=== PATIENT | male | born 1955 | race Caucasian/White ===

== ENCOUNTER 2025-05-08 20:44 | Inpatient (IN) | payer MEDICARE, OTHER, SELFPAY ==
[2025-05-08] VITALS (8 sets, daily range): BP systolic 118–137; BP diastolic 69–86; BMI 28.7
--- NOTE | 2025-05-08 15:54 | ED.GENMED ---
History of Present Illness
<Cristina Becerril, BUSINESS APPLICATIONS ANALYST - Last Filed: 05/10/25 14:02>
General
Chief Complaint: Fever
Source: patient
Exam Limitations: none
Time Seen by Provider: 05/08/25 15:29
Nursing documentation reviewed up to this point in time: agreed with
History of Present Illness
History of Present Illness:
69-year-old male with history of asthma present for workup from Heme/Onc Dr. Moses's office. He states that for about two weeks, he has been weak, legs feel heavy, 'intense deep aching pains' in both legs and left arm, decreased appetite.
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 Was given 2 units PRBC's, bone marrow biopsy and sent home. Three days
ago went back to [place] with severe weakness and given another 2 units PRBCs and was to follow up with Dr. Moses today, which he did and due to symptoms, sent here for workup.
Pt denies CP, SOB, abd pain, n/v/d. Appetite has been poor, feels constipated. Small BM yesterday.
Past History
<Cristina Becerril, BUSINESS APPLICATIONS ANALYST - Last Filed: 05/10/25 14:02>
Past History
ED Past Medical History: Asthma
ED Past Surgical History: Other (Mohs procedure)
Review of Systems
<Cristina Becerril, BUSINESS APPLICATIONS ANALYST - Last Filed: 05/10/25 14:02>
Review of Systems
Allergies reviewed?: Yes
All Other Systems: ROS reviewed and negative except as documented in HPI and ROS
Constitutional: Reports fatigue; Denies fever
EENT: Denies sore throat
Respiratory: Denies trouble breathing
Cardiac: Denies chest pain or syncope
ABD/GI: Reports constipated and anorexia; Denies abdominal pain, nausea, vomiting or diarrhea
: Denies dysuria or difficulty voiding
Musculoskeletal: Reports other (Deep aching pains in his legs and left arm)
Skin: Reports other (Mild tenderness, mild swelling, mild erythema anterior left forearm)
Neurological: Denies dizzy or numbness
Hematologic/Lymphatic: Denies bleeding
Phy Exam
<Cristina Becerril, BUSINESS APPLICATIONS ANALYST - Last Filed: 05/10/25 14:02>
Physical Exam
Physical Exam:
GENERAL: No acute distress. A&Ox3.
CONSTITUTIONAL: Afebrile.
EYES: clear, conjunctivae normal
ENMT: moist mucus membranes, Pharynx nl
RESPIRATORY: Regular respirations, nonlabored, lungs clear.
CARDIOVASCULAR: Regular rate and rhythm, no murmurs, no rubs.
GI: Soft, nontender, normal BS
MUSCULOSKELETAL: Moves with ease. Well perfused.
SKIN: Warm, dry, pink. Local area of mild erythema, tenderness and mild swelling left anterior forearm
PSYCH: Normal mood and affect. Well kept, interactive and appropriate
NEUROLOGIC: Awake, alert and oriented. No focal neurological deficits
Course
<Cristina Becerril, BUSINESS APPLICATIONS ANALYST - Last Filed: 05/10/25 14:02>
Orders/Labs/Results
Orders:
Orders
05/08/25 Dinner
Regular
At Your Request: Full Participation
05/08/25 15:02
Electrocardiogram (*1) Urgent
Reason for Study: Other
Other Reason for Exam: fever
EKG- Treatment ONCE
05/08/25 16:23
CMP [Comprehensive Metabolic Panel] Urgent
Complete Blood Count/With Diff Urgent
Manual Differential Urgent
05/08/25 16:24
Type And Crossmatch [Type+Screen] Urgent
Blood Culture Q30M
LAN Source: Blood/Venous
Specimen Description:
05/08/25 16:29
Urinalysis Reflex To Culture Urgent
Date Specimen was Collected: 05/08/25
Time Specimen was Collected: 16:28
Urine Microscopic Reflex Cult Urgent
Urine Culture Urgent
LAN Source: U
Specimen Description:
Date Specimen was Collected: 05/08/25
Time Specimen was Collected: 16:28
05/08/25 16:47
CR Chest - 2 Views Urgent
Comment:
Reason For Exam: fever, recent dx leukemia
05/08/25 16:50
Cefepime HCl [Maxipime] 1,000 mg IV NOW STA
05/08/25 16:59
Blood Culture Q30M
LAN Source: Blood/Venous
Specimen Description:
05/08/25 17:12
ONCOLOGY CONSULT Urgent
Consulting Provider: Katy Moses
Was physician already notified: Yes
Reason for consult: Leukemia
05/08/25 18:00
Acetaminophen [Tylenol] 1,000 mg .ROUTE .STK-MED ONE
05/08/25 18:09
Acetaminophen [Tylenol] 1,000 mg PO NOW STA
05/08/25 18:11
Vancomycin [Vancocin] 2,000 mg 0.9% Sodium Chloride 500 ml [Nss] 500 ml IV NOW
05/08/25 18:20
Legs, Bilateral US [US Periph Venous LOWER Ext Alo] Urgent
Comment: known malignancy
Reason For Exam: Lower extremity swelling
05/08/25 19:26
Admit/Transfer Patient As Directed
Co-Sign Provider:
Level of Care: Inpatient admission
Assign to:: Medical/Surgical
Physician / Group: Kate
Diagnosis: Fever
Reason for Hospitalization: fever, leukemia
Expected length of stay greater than two midnights?: Yes
ELOS- Estimated Length of Stay in days: 2
I certify the patient meets the requirements for IP care: Yes
PRN Pain Medication Management As Directed
May give lesser potent ordered pain med per pt: Yes
preference::
Protocol:: Medication orders for pain may be administered in a
manner that supports deferring to patient preference
when the pt is:
- Requesting an ordered lesser potent pain medication.
Least to most potent pain medications are defined
as: acetaminophen < NSAID < tramadol < opioids
(morphine, oxycodone, hydromorphone).
- Requesting a lesser dose of the same medication IF
ORDERED.
- Requesting a less intrusive route of administration
if both routes are prescribed by the provider (PO <
IV).
05/08/25 19:27
Code Status As Directed
Resuscitation Status: Full Code
05/08/25 19:54
COVID-19 Antigen Stat
Source: Nasal Swab
Influenza A+B Rapid Molecular Stat
LAN Source: Nasal Swab
Specimen Description:
05/08/25 21:28
Acetaminophen [Tylenol] 650 mg PO Q4HPRN PRN
Albuterol [ProAIR HFA INHALER] 2 puff INH R Q6HPRN PRN sob
Bisacodyl [Dulcolax] 10 mg RECTAL [id number] PRN
Docusate W/Senna [Senokot-S] 1 tablet PO BIDPRN PRN
Heparin 5,000 units SC Q12
Ondansetron Injectable [Zofran] 4 mg IV Q6HPRN PRN
Polyethylene Glycol Powder [Miralax] 17 grams PO DAILYPRN PRN
VANCOMYCIN Pharmacy to Dose [VANCOCIN Pharmacy to Dose] 1 each Pharmacy To Prepare [Call Pharmacy To Prepare] 0 ml IV PER PROTOCOL
05/08/25 21:28
Activity As Directed
Activity Level: With Assistance
Vital Signs As Directed
Frequency: Per unit guidelines
Pulse Ox/spot Check [RESP] Routine
Quantity: 1
DX Deep Vein Thrombosis Video Routine
05/09/25 05:37
Basic Metabolic Panel IN AM
Magnesium IN AM
05/09/25 08:00
Multivitamin [Theragran] 1 tablet PO DAILY
Abnormal Lab Results
05/08/25 05/08/25
16:23 16:29
WBC 2.9 L 10^3/uL
(4.8-10.8)
RBC 2.45 L 10^6/uL
(4.70-6.10)
Hgb 8.2 L g/dL
(13.0-18.0)
Hct 23.7 L %
(39.0-52.0)
MCV 96.7 H fL
(80.0-94.0)
MCH 33.5 H pg
(27.0-31.0)
RDW 15.3 H %
(11.5-14.5)
Plt Count 50 L 10^3/uL
(130-400)
Abs Neuts (Manual) 0.4 L* 10^3/uL
(1.4-6.5)
Segmented Neutrophils 9 L %
(42-75)
Band Neutrophils 5 H %
(0-3)
Lymphocytes (Manual) 53 H %
(20-51)
Monocytes (Manual) 15 H %
(2-9)
Blast Cells 7 H* %
(-)
Glucose 103 H mg/dl
(70-99)
Urine Ketones 1+ A
(Negative)
Urine Bilirubin 1+ A
(Negative)
Urine Urobilinogen 2+ A
(Neg - 1+)
Leukocyte Esterase Rfl 1+ A
(Negative)
Urine RBC 3-6 A /HPF
(0-2)
Urine Bacteria (Reflex) Few A
(Negative)
Urine Albumin (Reflex) 2+ A
(Neg - Trace)
05/08/25 16:23
05/08/25 16:23
Vital Signs
Initial and Last Documented VS:
Initial Vital Signs
Temp Pulse Resp BP Pulse Ox
99.0 F 93 18 123/82 96
05/08/25 14:56 05/08/25 14:56 05/08/25 14:56 05/08/25 14:56 05/08/25 14:56
Last Documented Vital Signs
Temp Pulse Resp BP Pulse Ox
100.4 F H 82 18 125/61 95
05/10/25 07:00 05/10/25 07:00 05/10/25 07:00 05/10/25 07:00 05/10/25 07:00
Echocardiography Tech consulted with Physician
Echocardiography Tech consulted with physician?: Yes
Name of Physician Consulted: Jj
<Branden Welch MD - Last Filed: 05/08/25 18:35>
Orders/Labs/Results
Orders:
Orders
05/08/25 Dinner
Regular
At Your Request: Full Participation
05/08/25 15:02
Electrocardiogram (*1) Urgent
Reason for Study: Other
Other Reason for Exam: fever
EKG- Treatment ONCE
05/08/25 16:23
CMP [Comprehensive Metabolic Panel] Urgent
Complete Blood Count/With Diff Urgent
Manual Differential Urgent
05/08/25 16:24
Type And Crossmatch [Type+Screen] Urgent
Blood Culture Q30M
LAN Source: Blood/Venous
Specimen Description:
05/08/25 16:29
Urinalysis Reflex To Culture Urgent
Date Specimen was Collected: 05/08/25
Time Specimen was Collected: 16:28
Urine Microscopic Reflex Cult Urgent
Urine Culture Urgent
LAN Source: U
Specimen Description:
Date Specimen was Collected: 05/08/25
Time Specimen was Collected: 16:28
05/08/25 16:47
CR Chest - 2 Views Urgent
Comment:
Reason For Exam: fever, recent dx leukemia
05/08/25 16:50
Cefepime HCl [Maxipime] 1,000 mg IV NOW STA
05/08/25 16:59
Blood Culture Q30M
LAN Source: Blood/Venous
Specimen Description:
05/08/25 17:12
ONCOLOGY CONSULT Urgent
Consulting Provider: Katy Moses
Was physician already notified: Yes
Reason for consult: Leukemia
05/08/25 18:00
Acetaminophen [Tylenol] 1,000 mg .ROUTE .STK-MED ONE
05/08/25 18:09
Acetaminophen [Tylenol] 1,000 mg PO NOW STA
05/08/25 18:11
Vancomycin [Vancocin] 2,000 mg 0.9% Sodium Chloride 500 ml [Nss] 500 ml IV NOW
05/08/25 18:20
Legs, Bilateral US [US Periph Venous LOWER Ext Alo] Urgent
Comment: known malignancy
Reason For Exam: Lower extremity swelling
05/08/25 19:26
Admit/Transfer Patient As Directed
Co-Sign Provider:
Level of Care: Inpatient admission
Assign to:: Medical/Surgical
Physician / Group: Kate
Diagnosis: Fever
Reason for Hospitalization: fever, leukemia
Expected length of stay greater than two midnights?: Yes
ELOS- Estimated Length of Stay in days: 2
I certify the patient meets the requirements for IP care: Yes
PRN Pain Medication Management As Directed
May give lesser potent ordered pain med per pt: Yes
preference::
Protocol:: Medication orders for pain may be administered in a
manner that supports deferring to patient preference
when the pt is:
- Requesting an ordered lesser potent pain medication.
Least to most potent pain medications are defined
as: acetaminophen < NSAID < tramadol < opioids
(morphine, oxycodone, hydromorphone).
- Requesting a lesser dose of the same medication IF
ORDERED.
- Requesting a less intrusive route of administration
if both routes are prescribed by the provider (PO <
IV).
05/08/25 19:27
Code Status As Directed
Resuscitation Status: Full Code
05/08/25 19:54
COVID-19 Antigen Stat
Source: Nasal Swab
Influenza A+B Rapid Molecular Stat
LAN Source: Nasal Swab
Specimen Description:
05/08/25 21:28
Acetaminophen [Tylenol] 650 mg PO Q4HPRN PRN
Albuterol [ProAIR HFA INHALER] 2 puff INH R Q6HPRN PRN sob
Bisacodyl [Dulcolax] 10 mg RECTAL [id number] PRN
Docusate W/Senna [Senokot-S] 1 tablet PO BIDPRN PRN
Heparin 5,000 units SC Q12
Ondansetron Injectable [Zofran] 4 mg IV Q6HPRN PRN
Polyethylene Glycol Powder [Miralax] 17 grams PO DAILYPRN PRN
VANCOMYCIN Pharmacy to Dose [VANCOCIN Pharmacy to Dose] 1 each Pharmacy To Prepare [Call Pharmacy To Prepare] 0 ml IV PER PROTOCOL
05/08/25 21:28
Activity As Directed
Activity Level: With Assistance
Vital Signs As Directed
Frequency: Per unit guidelines
Pulse Ox/spot Check [RESP] Routine
Quantity: 1
DX Deep Vein Thrombosis Video Routine
05/09/25 05:37
Basic Metabolic Panel IN AM
Magnesium IN AM
05/09/25 08:00
Multivitamin [Theragran] 1 tablet PO DAILY
Abnormal Lab Results
05/08/25 05/08/25
16:23 16:29
WBC 2.9 L 10^3/uL
(4.8-10.8)
RBC 2.45 L 10^6/uL
(4.70-6.10)
Hgb 8.2 L g/dL
(13.0-18.0)
Hct 23.7 L %
(39.0-52.0)
MCV 96.7 H fL
(80.0-94.0)
MCH 33.5 H pg
(27.0-31.0)
RDW 15.3 H %
(11.5-14.5)
Plt Count 50 L 10^3/uL
(130-400)
Abs Neuts (Manual) 0.4 L* 10^3/uL
(1.4-6.5)
Segmented Neutrophils 9 L %
(42-75)
Band Neutrophils 5 H %
(0-3)
Lymphocytes (Manual) 53 H %
(20-51)
Monocytes (Manual) 15 H %
(2-9)
Blast Cells 7 H* %
(-)
Glucose 103 H mg/dl
(70-99)
Urine Ketones 1+ A
(Negative)
Urine Bilirubin 1+ A
(Negative)
Urine Urobilinogen 2+ A
(Neg - 1+)
Leukocyte Esterase Rfl 1+ A
(Negative)
Urine RBC 3-6 A /HPF
(0-2)
Urine Bacteria (Reflex) Few A
(Negative)
Urine Albumin (Reflex) 2+ A
(Neg - Trace)
05/08/25 16:23
05/08/25 16:23
Vital Signs
Initial and Last Documented VS:
Initial Vital Signs
Temp Pulse Resp BP Pulse Ox
99.0 F 93 18 123/82 96
05/08/25 14:56 05/08/25 14:56 05/08/25 14:56 05/08/25 14:56 05/08/25 14:56
Last Documented Vital Signs
Temp Pulse Resp BP Pulse Ox
100.4 F H 82 18 125/61 95
05/10/25 07:00 05/10/25 07:00 05/10/25 07:00 05/10/25 07:00 05/10/25 07:00
<Lilian Tsai PA-C - Last Filed: 05/09/25 01:18>
Orders/Labs/Results
Orders:
Orders
05/08/25 Dinner
Regular
At Your Request: Full Participation
05/08/25 15:02
Electrocardiogram (*1) Urgent
Reason for Study: Other
Other Reason for Exam: fever
EKG- Treatment ONCE
05/08/25 16:23
CMP [Comprehensive Metabolic Panel] Urgent
Complete Blood Count/With Diff Urgent
Manual Differential Urgent
05/08/25 16:24
Type And Crossmatch [Type+Screen] Urgent
Blood Culture Q30M
LAN Source: Blood/Venous
Specimen Description:
05/08/25 16:29
Urinalysis Reflex To Culture Urgent
Date Specimen was Collected: 05/08/25
Time Specimen was Collected: 16:28
Urine Microscopic Reflex Cult Urgent
Urine Culture Urgent
LAN Source: U
Specimen Description:
Date Specimen was Collected: 05/08/25
Time Specimen was Collected: 16:28
05/08/25 16:47
CR Chest - 2 Views Urgent
Comment:
Reason For Exam: fever, recent dx leukemia
05/08/25 16:50
Cefepime HCl [Maxipime] 1,000 mg IV NOW STA
05/08/25 16:59
Blood Culture Q30M
LAN Source: Blood/Venous
Specimen Description:
05/08/25 17:12
ONCOLOGY CONSULT Urgent
Consulting Provider: Katy Moses
Was physician already notified: Yes
Reason for consult: Leukemia
05/08/25 18:00
Acetaminophen [Tylenol] 1,000 mg .ROUTE .STK-MED ONE
05/08/25 18:09
Acetaminophen [Tylenol] 1,000 mg PO NOW STA
05/08/25 18:11
Vancomycin [Vancocin] 2,000 mg 0.9% Sodium Chloride 500 ml [Nss] 500 ml IV NOW
05/08/25 18:20
Legs, Bilateral US [US Periph Venous LOWER Ext Alo] Urgent
Comment: known malignancy
Reason For Exam: Lower extremity swelling
05/08/25 19:26
Admit/Transfer Patient As Directed
Co-Sign Provider:
Level of Care: Inpatient admission
Assign to:: Medical/Surgical
Physician / Group: [id number]
Diagnosis: Fever
Reason for Hospitalization: fever, leukemia
Expected length of stay greater than two midnights?: Yes
ELOS- Estimated Length of Stay in days: 2
I certify the patient meets the requirements for IP care: Yes
PRN Pain Medication Management As Directed
May give lesser potent ordered pain med per pt: Yes
preference::
Protocol:: Medication orders for pain may be administered in a
manner that supports deferring to patient preference
when the pt is:
- Requesting an ordered lesser potent pain medication.
Least to most potent pain medications are defined
as: acetaminophen < NSAID < tramadol < opioids
(morphine, oxycodone, hydromorphone).
- Requesting a lesser dose of the same medication IF
ORDERED.
- Requesting a less intrusive route of administration
if both routes are prescribed by the provider (PO <
IV).
05/08/25 19:27
Code Status As Directed
Resuscitation Status: Full Code
05/08/25 19:54
COVID-19 Antigen Stat
Source: Nasal Swab
Influenza A+B Rapid Molecular Stat
LAN Source: Nasal Swab
Specimen Description:
05/08/25 21:28
Acetaminophen [Tylenol] 650 mg PO Q4HPRN PRN
Albuterol [ProAIR HFA INHALER] 2 puff INH R Q6HPRN PRN sob
Bisacodyl [Dulcolax] 10 mg RECTAL [id number] PRN
Docusate W/Senna [Senokot-S] 1 tablet PO BIDPRN PRN
Heparin 5,000 units SC Q12
Ondansetron Injectable [Zofran] 4 mg IV Q6HPRN PRN
Polyethylene Glycol Powder [Miralax] 17 grams PO DAILYPRN PRN
VANCOMYCIN Pharmacy to Dose [VANCOCIN Pharmacy to Dose] 1 each Pharmacy To Prepare [Call Pharmacy To Prepare] 0 ml IV PER PROTOCOL
05/08/25 21:28
Activity As Directed
Activity Level: With Assistance
Vital Signs As Directed
Frequency: Per unit guidelines
Pulse Ox/spot Check [RESP] Routine
Quantity: 1
DX Deep Vein Thrombosis Video Routine
05/09/25 05:37
Basic Metabolic Panel IN AM
Magnesium IN AM
05/09/25 08:00
Multivitamin [Theragran] 1 tablet PO DAILY
Abnormal Lab Results
05/08/25 05/08/25
16:23 16:29
WBC 2.9 L 10^3/uL
(4.8-10.8)
RBC 2.45 L 10^6/uL
(4.70-6.10)
Hgb 8.2 L g/dL
(13.0-18.0)
Hct 23.7 L %
(39.0-52.0)
MCV 96.7 H fL
(80.0-94.0)
MCH 33.5 H pg
(27.0-31.0)
RDW 15.3 H %
(11.5-14.5)
Plt Count 50 L 10^3/uL
(130-400)
Abs Neuts (Manual) 0.4 L* 10^3/uL
(1.4-6.5)
Segmented Neutrophils 9 L %
(42-75)
Band Neutrophils 5 H %
(0-3)
Lymphocytes (Manual) 53 H %
(20-51)
Monocytes (Manual) 15 H %
(2-9)
Blast Cells 7 H* %
(-)
Glucose 103 H mg/dl
(70-99)
Urine Ketones 1+ A
(Negative)
Urine Bilirubin 1+ A
(Negative)
Urine Urobilinogen 2+ A
(Neg - 1+)
Leukocyte Esterase Rfl 1+ A
(Negative)
Urine RBC 3-6 A /HPF
(0-2)
Urine Bacteria (Reflex) Few A
(Negative)
Urine Albumin (Reflex) 2+ A
(Neg - Trace)
05/08/25 16:23
05/08/25 16:23
Vital Signs
Initial and Last Documented VS:
Initial Vital Signs
Temp Pulse Resp BP Pulse Ox
99.0 F 93 18 123/82 96
05/08/25 14:56 05/08/25 14:56 05/08/25 14:56 05/08/25 14:56 05/08/25 14:56
Last Documented Vital Signs
Temp Pulse Resp BP Pulse Ox
100.4 F H 82 18 125/61 95
05/10/25 07:00 05/10/25 07:00 05/10/25 07:00 05/10/25 07:00 05/10/25 07:00
<Cristina Becerril, BUSINESS APPLICATIONS ANALYST - Last Filed: 05/10/25 14:02>
MDM/Problems Addressed
Differential Diagnosis Includes:
leukemia, anemia, sepsis
MDM/Problems Addressed:
69-year-old male with history of asthma present for workup from Heme/Onc Dr. Moses's office. He states that for about two weeks, he has been weak, legs feel heavy, 'intense deep aching pains' in both legs and left arm, decreased appetite.
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 Was given 2 units PRBC's, bone marrow biopsy and sent home. Three days
ago went back to [place] with severe weakness and given another 2 units PRBCs and was to follow up with Dr. Moses today, which he did and due to symptoms, sent here for workup.
Pt denies CP, SOB, abd pain, n/v/d. Appetite has been poor, feels constipated. Small BM yesterday.
Afebrile, NAD, VSS
Blood consent signed and scanned into chart
Dr. Moses requests admit, selby cultures, empiric antibiotics, opioid pain control and she will start Azacitidine tomorrow.
Pt declines when pain med offered, states pain is 2/10 now.
5:00 PM:
CMP: Unremarkable
UA: Microscopic pending
CXR pending
CBC pending
Started Vanco and Cefepime.
Case discussed with Evie Tsai who will assume care from this point.
<Cristina Becerril, BUSINESS APPLICATIONS ANALYST - Last Filed: 05/10/25 14:02>
*Pulse Oximetry
SaO2: 97
Oxygen Mode of Delivery: Room air
<Lilian Tsai PA-C - Last Filed: 05/09/25 01:18>
*Pulse Oximetry
Patient hypoxic: no
*Critical Care Note
Total Time (30-74mins, 75-104mins- exclusive of procedures): Not Applicable
<Lilian Tsai PA-C - Last Filed: 05/09/25 01:18>
Update Note
Update Note:
Update: I assumed care of patient pending lab work and chest x-ray. On evaluation by myself and attending�he did appear to have some swelling of his bilateral lower extremities, worse on left side. Will proceed with bilateral ultrasounds of lower
extremities to rule out underlying DVT with no malignancy and recent blood transfusions.
Update: Chest x-ray without acute findings. Bilateral lower extremity ultrasounds without evidence of DVT. CBC reveals pancytopenia�stable from prior. No indication for emergent blood transfusion. Discussed with hospitalist and patient accepted
to service for further management. Patient was started on vancomycin/cefepime in ED.
ED Attending Note
<Cristina Becerril NP - Last Filed: 05/10/25 14:02>
-
Portions of this chart may have been created with voice recognition software.� Occasional wrong word or��sound alike� substitutions may have occurred due to the inherent limitations of voice recognition software.
<Branden Welch MD - Last Filed: 05/08/25 18:35>
ED Attending Note
Patient seen and examined by attending physician: Yes
I performed the substantive portion of visit, reviewed & personally made and approve the management plan that is documented in note by myself or MARY.: Yes
ED Attending Note:
69-year-old male 1+ week fevers. Bilateral leg pain this is been ongoing. Recently diagnosed with myelodysplastic syndrome. Plan for admission cultures antibiotics. Fevers are felt to possibly be noninfectious. No chest pain no shortness of
breath.
On exam patient is nontoxic in no distress. Warm and dry. Perfusing well. Lungs clear and equal. Heart regular rate and rhythm no murmur. Abdomen nontender. Mild swelling of the left leg with mild pitting. No cord. No erythema. Good distal
pulses and color. Grossly nonfocal.
Impression is fever unknown etiology. Cultures pending. Antibiotics started. We will get ultrasounds of the legs. Chest x-ray negative.
Discharge Plan
Departure
Patient Disposition: Admit
Date of Disposition: 05/08/25
Time of Disposition: 19:14
Presentation/result/management discussed w/ accepting MD/DO: Hospitalist
Discharge Problem:
Pancytopenia, Fever
Interventions
Interventions:
*Risk Screen - Suicide Last Done: 05/08/25 15:49
*General Assessment Last Done: 05/08/25 15:49
*Neglect/Abuse Screening Last Done: 05/08/25 15:49
*ED- Fall Risk Assessment Last Done: 05/08/25 15:49
*ED COVID-19 Vaccine History Last Done: 05/08/25 15:49
*ED Influenza Vaccine History Last Done: 05/08/25 15:49
*Nursing Disposition Last Done: 05/08/25 21:30
ED- Neurological Assessment Last Done: 05/08/25 15:58
ED-Skin Assessment Last Done: 05/08/25 16:00
Discharge Date and Time
Discharge Date/Time: 05/08/25 21:31
[2025-05-08 16:49] LABS: ALT (SGPT) 35 U/L (0-50); AST (SGOT) 25 U/L (17-59); Albumin 3.8 g/dl (3.5-5.0); Alkaline Phosphatase 80 U/L (38-126); Blood Urea Nitrogen 17 mg/dl (9-20); Calcium 8.8 mg/dl (8.4-10.2); Carbon Dioxide 28 mmol/L (22-30); Chloride 101 mmol/L (98-107); Estimated Creatinine Clearance 108 ml/min; Glucose 103 mg/dl (70-99); Potassium 4.1 mmol/L (3.5-5.1); Sodium 136 mmol/L (135-145); Total Protein 6.7 g/dl (6.3-8.2); eGFR > 60.00
[2025-05-08 16:49] LABS: Urine Character Clear (Clear)
[2025-05-08] MEDS: MAXIPIME 1000 MG IV (17:05)
[2025-05-08 17:52] LABS: Hematocrit 23.7 % (39.0-52.0); Hemoglobin 8.2 g/dL (13.0-18.0); Mean Corp Hgb Conc. 34.6 g/dL (33.0-37.0); Mean Corpuscular Volume 96.7 fL (80.0-94.0); Platelet Count 50 10^3/uL (130-400); Red Cell Dist. Width 15.3 % (11.5-14.5)
[2025-05-08] MEDS: TYLENOL 1000 MG PO (18:09)
[2025-05-08] MEDS: VANCOCIN 540 MG IV (18:38)
--- NOTE | 2025-05-08 19:21 | HPS.HSE ---
Family Physician
-
Family Physician: Lucille Anand
Chief Complaint
-
Fever
History of Present Illness
This a 69-year-old with past medical history significant for asthma, prior history of skin melanoma status post surgery radiation and topical chemo, and now leukemia requiring transfusions of blood twice in the past 10 days presents to the emergency
department from oncology clinic for weakness and fever.
Patient has been suffering from lethargy fatigue and generalized pain in the lower extremities. He was seen at [facility]. There was found to have pancytopenia. There was no evidence of bleeding. Patient required a transfusion of 2 units
of blood. He then required another transfusion a few days later with 2 units of blood. 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 He was referred to oncology.
Spouse reports that over the last 4 days he has had fevers mostly at night and associated with drenching night sweats. He has no cough. Denies any shortness of breath. Denies any chest pain pleuritic or otherwise. He reports some trace
left-sided ankle edema. He denies any abdominal pain nausea or vomiting. He denies any urinary symptoms. He denies any rash.
In the emergency department patient was afebrile with a Tmax of 99.1, blood pressure was 183/70 with a pulse rate of 91 and he was satting 97% on room air. His chest x-ray shows no convincing infiltrates. He is urinalysis was unremarkable.
Ultrasound of right lower extremity was negative for DVT. ECG shows a normal sinus rhythm at a rate of 86 without any acute ischemic changes.
White count was 2.9, hemoglobin 8.2 and plate count of 50. He is electrolytes were normal. BUN and creatinine were normal.
Medical History
Past Medical History
Past Medical History: Reports Asthma and Cancer (Leukemia, prior skin melanoma)
Past Surgical History: Reports None
Social History
Tobacco: Non-smoker
Alcohol: Occasional
Drug: None
Personal:
Living: With Family
Family History
Family History: Not pertinent
Allergies / Home Medications
Allergies reflects when Allergies were last updated in [facility].
Home Medications with original date entered in [facility]
Allergy/Medication List:
Allergies
Allergy/AdvReac Type Severity Reaction Status Date / Time
shellfish derived Allergy Severe Anaphylaxis Verified 05/08/25 15:48
Home Medications
albuterol sulfate 90 mcg/actuation aerosol inhaler 2 puff inhalation R Q6HPRN PRN sob 05/08/25
coQ10 (ubiquinol) 100 mg capsule 100 mg PO DAILY 05/08/25
glucosamine sulf dipot chlr,msm,chond 550 mg-C 30 mg-donald 1 mg capsule (Glucosamine Chondroitin) 1 cap PO DAILY 05/08/25
therapeutic multivitamin 1 tab PO DAILY 05/08/25
turmeric 400 mg capsule 400 mg PO DAILY 05/08/25
Review of Systems
-
History Source: Patient
Constitutional: Reports Fever and Fatigue
EENT: Reports No Symptoms
Respiratory: Reports No Symptoms
Cardiac: Reports No Symptoms
Abdomen/GI: Reports No Symptoms
: Reports No Symptoms
Musculoskeletal: Reports No Symptoms
Skin: Reports No Symptoms
Neurological: Reports No Symptoms
Endocrine: Reports No Symptoms
Hematologic/Lymphatic: Reports Other (Symptomatic anemia)
Psych: Reports No Symptoms
Physical Exam
Vital Signs
Vital Signs
Temp Pulse Resp BP Pulse Ox
99.1 F 91 18 133/74 97
05/08/25 17:56 05/08/25 18:15 05/08/25 18:15 05/08/25 18:04 05/08/25 15:56
Physical Exam
General: Well Developed, Well Nourished and No Apparent Distress
HEENT: NormoCephalic, Moist mucous membranes and Atraumatic
Respiratory: Clear
Cardiac: S1/S2 and Regular Rhythm; No Murmur or Rub
GI: Soft, Non Tender, Non Distended and Normal Bowel Sounds; No Organomegaly
Rectal: Deferred by Provider
Musculoskeletal: No Clubbing, No Cyanosis and Edema, Left Lower Extremity (Trace)
Skin: No Rash
Neuro: Nonfocal/grossly intact
Laboratory Results
-
05/08/25 16:23
05/08/25 16:23
Laboratory Results
Total Bilirubin 0.8 mg/dl (0.2-1.3) 05/08/25 16:23
AST 25 U/L (17-59) 05/08/25 16:23
ALT 35 U/L (0-50) 05/08/25 16:23
Alkaline Phosphatase 80 U/L (38-126) 05/08/25 16:23
Data Reviewed
-
Diagnostic Radiology: Image Personally Visualized and interpreted and Report Reviewed by me
Ultrasound: Report Reviewed by me
Medical Tests (Nuc Med, Echo, EKG etc): Image Personally Visualized and interpreted
Lab Data: Labs Reviewed by me
Impression/Plan
-
IMPRESSION:
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 Workup in the ED does not show convincing
source of infection. Given a minimal separate status and transfusion dependent and patient will be initiated on azacitidine by oncology tomorrow.
PLAN:
Fevers - night fevers, night sweats of unknown source at this time. Possibly related to leukemia. Afebrile here
-Admit to [facility]
-Urine and blood cultures have been sent
-Will check MRSA swab, COVID, influenza
-Exam is benign and no evidence of an intra-abdominal process, if fever persists we will consider a CT scan of the abdomen pelvis
-For now we will continue with IV cefepime and vancomycin
Pancytopenia -transfusion dependent
-Type and screen, consented,
-No evidence of bleeding, Daily H&H, transfuse for hemoglobin of less than 7
-Platelet count 50, no evidence of mucosal bleeding, transfuse for platelet count less than 10 or if signs of mucosal bleeding
-Patient is to start SSI today and per oncology
-Oncology consultation
Asthma - No evidence of acute process. Mitch has been held
- continue prn albuterol
DVT prophylaxis�heparin sq q 12 for now
CODE STATUS�full code
[2025-05-08 20:13] LABS: COVID-19 Antigen Negative (Negative)
--- NOTE | 2025-05-08 21:58 | PHA.VAN.IN ---
Assessment
- Assessment
Renal Function: Unknown baseline
Concomitant Antimicrobials: cefepime 2 g IV Q8H
AUC Dosing Plan
- Empiric Dosing
Initial / Loading Dose: 2000 mg IV x 1 @ 1830
Maintenance Regimen: 1250 mg IV Q12H
Estimated AUC (mcg*h/mL): 436
Estimated Peak (mcg*h/mL): 28.3
Estimated Trough (mcg/ml): 10.6
Estimated Half Life (H): 7.4
- Monitoring
No levels ordered at this time: level to be ordered upon follow-up
Pharmacokinetics Vancomycin I
- -
Patient Age: 69
Patient Sex: Male
Vancomycin Day #: 1
Indication: Neutropenic Fever
Requesting Provider: Leobardo Love MD
Height / Weight:
Height 5 ft 11 in
Actual Weight 93.2 kg
- Vital Signs / Lab Results
Temp Pulse Resp BP Pulse Ox
99.2 F 88 16 132/75 98
05/08/25 21:43 05/08/25 21:43 05/08/25 21:43 05/08/25 21:43 05/08/25 21:43
Lab Results - Hematology
05/08/25
16:23
WBC 2.9 L
Lab Results - Chemistry
05/08/25
16:23
BUN 17
Creatinine 0.7
Estimated Creat Clear 108
Albumin 3.8
Lab Results - Urine
05/08/25
16:29
Urine Nitrite (Reflex) Negative
Leukocyte Esterase Rfl 1+ A
Urine WBC (Reflex) 3-5
Ur Squamous Epith Cells 3-5
Urine Bacteria (Reflex) Few A
Microbiology Results
05/08/25 19:54 Influenza Types A & B (NISHA) - Final
Nasal Swab Negative for Influenza A & B, NAAT
Negative results must be combined with clinical observations
and patient history.
Nucleic Acid Amplification test (NAAT)performed on the
[employer] platform.
[2025-05-08] MEDS: HEPARIN 5000 UNITS SC (22:07)
[2025-05-08] MEDS: TYLENOL 650 MG PO (23:21)
--- NOTE | 2025-05-09 01:41 | PTCARENOTE ---
Patient arrived on 2 north via ED stretcher. Patient walked into room. Patients vitals all stable. Patients will be staying the night. Patient states that he has chronic leg pain and requests that Tylenol be given for this pain. See mar.
[2025-05-09] MEDS: MAXIPIME 2000 MG IV ×3 (01:48→17:21)
[2025-05-09] MEDS: STERILE WATER FOR INJECTION 10 ML IV ×3 (01:48→17:21)
[2025-05-09] MEDS: TYLENOL 650 MG PO ×2 (03:52→07:55)
[2025-05-09] MEDS: VANCOCIN 275 MG IV (05:33)
[2025-05-09 06:57] LABS: Blood Urea Nitrogen 14 mg/dl (9-20); Calcium 8.6 mg/dl (8.4-10.2); Carbon Dioxide 30 mmol/L (22-30); Chloride 103 mmol/L (98-107); Estimated Creatinine Clearance 94 ml/min; Glucose 98 mg/dl (70-99); Magnesium 2.0 mg/dl (1.6-2.3); Potassium 4.3 mmol/L (3.5-5.1); Sodium 138 mmol/L (135-145); eGFR > 60.00
[2025-05-09 07:20] VITALS: BP 118/70
[2025-05-09] MEDS: THERAGRAN 1 TABLET PO (07:36)
[2025-05-09] MEDS: HEPARIN 5000 UNITS SC ×2 (07:37→20:12)
[2025-05-09 07:39] LABS: Hematocrit 22.5 % (39.0-52.0); Hemoglobin 7.8 g/dL (13.0-18.0); Mean Corp Hgb Conc. 34.7 g/dL (33.0-37.0); Mean Corpuscular Volume 97.8 fL (80.0-94.0); Platelet Count 48 10^3/uL (130-400); Red Cell Dist. Width 14.9 % (11.5-14.5)
--- NOTE | 2025-05-09 09:00 | CON.ID ---
Consultation
-
Date/Time Consultation Requested: 05/09/2025 0722
Date/Time Consultation Performed: 05/09/2025 0900
Requesting Provider: Dr. Gallardo
Performing Provider: Dr. Lee
Reason for Consultation: Fever
Chief Complaint / Past History
History of Present Illness
Griffin Woodruff is a 69-year-old man being evaluated at the request of Dr. Gallardo in regards to febrile neutropenia. History is obtained from chart review, along with patient interview. Additional history was obtained from the patient's who was
at the bedside.
The patient reports that he was in his usual state of health until approximately 4 weeks ago when he began to feel like he had a racing heart, and the development of generalized weakness and fatigue. He thought it would self resolve, but he went
into see his PCP and blood work was obtained. The practice reached out to him several days later when he was found that his hemoglobin was 6 and he was sent to the ER. He arrived to [facility] where he received a transfusion and ultimately
a bone marrow biopsy was performed. He was discharged to home, but subsequent blood work again showed anemia and he went back briefly for a transfusion. Yesterday he was into see Heme-onc and was sent to the emergency room for further workup of
neutropenia and persistent fevers. The patient reports that he began to have significant fevers last week, with temperatures up to 101 degrees. He reports significant sweats and also episodes of rigors. He additionally has complained of
significant arthralgias in the extremities.
Since admission, he has not had any recorded fevers. He denies any headache. He denies any chest pain or shortness of breath. He denies any abdominal pain. He denies any dysuria.
Past History
Additional Past Medical History:
Asthma
Promyelocytic leukemia (new diagnosis)
Additional Past Surgical History:
Skin cancer removal
Allergy History:
shellfish derived Allergy (Verified 05/08/25 21:30)
Anaphylaxis
Medications Reviewed: Yes
Current Antibiotics:
Cefepime 2 gm IV q.8 hours
Vancomycin (dosing per pharmacy)
Social History
Tobacco: Non-Smoker
Alcohol: None
Drug: None
Personal:
Living: With Family
Employment: Retired
Family History
Family History: Not Pertinent
Review of Systems
Vital Signs
Temp Pulse Resp BP Pulse Ox
99.5 F 85 16 118/70 96
05/09/25 07:20 05/09/25 07:20 05/09/25 07:20 05/09/25 07:20 05/09/25 07:20
Physical Exam
Physical Exam
Constitutional: No Acute Distress, Comfortable and Non-toxic
Eyes: No Conjunctival Hemorrhage and Sclera Anicteric
Oral: No Thrush and No Ulcers
Cardiovascular: Regular Rate and S1/S2; Negative S3/S4
Pulmonary: Clear; Negative Wheezes, Rales or Rhonchi
Gastrointestinal: Soft, Non Tender, Non Distended and Normal Bowel Sounds
Extremities: Negative Edema, Cyanosis or Erythema
Skin: Warm and Dry; Negative Rash or Jaundice
Neurological: Awake and Alert
Psychological: Calm
Lab / Diagnostic Study Results
05/09/25 05:37
05/09/25 05:37
Ur Squamous Epith Cells 3-5 /LPF (Few) 05/08/25 16:29
Microbiology Results
Micro:
05/08/25 19:54 Influenza Types A & B (NISHA) - Final
Nasal Swab Negative for Influenza A & B, NAAT
Negative results must be combined with clinical observations
and patient history.
Nucleic Acid Amplification test (NAAT)performed on the
[employer] platform.
05/08/25 16:59 Blood Culture - Pending
Blood/Venous
05/08/25 16:29 Urine Culture - Pending
Urine
05/08/25 16:24 Blood Culture - Pending
Blood/Venous
Imaging:
05/08/2025 CXR (2 view): no convincing focal infiltrates. No significant pleural effusion. No visualized pneumothorax. Please see full dictation for additional detail. Film personally viewed.
Assessment / Plan
Febrile neutropenia
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
Anemia
Thrombocytopenia
Recommendations:
Discontinue further vancomycin.
Continue with cefepime 2 gm IV q.8 hours.
Blood cultures have been obtained and are pending.
Patient has started chemotherapy.
Trend white count and temperature curve.
Further recommendations as additional data is returned.
����������������������������������������������������������
Care Review
Plan reviewed with: Physician (Hospitalist; Keena)
--- NOTE | 2025-05-09 09:34 | CON.ONC ---
Consultation
-
Date Consultation Requested: 05/08/25
Date Consultation Performed: 05/09/25
Requesting Provider: JASMYN Sylvester
Performing Provider: Katy Moses MD
Reason for Consultation: high-risk MDS, neutropenic fever
Impression
Impression
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
fevers, neutropenia
pancytopenia
Plan
Plan
fevers are most likely related to MDS; commonly seen w/ TP53 loss
empiric abx and infection w/u underway, though suspicion is low
case was discussed w/ leukemia MD at [place] yesterday, who recommended treatment w/ azacitidine
will initiate azacitidine SQ today, plan for 7 daily doses. Can transition to outpatient dosing in our [facility] when able, insurance auth process underway
monitor labs daily, low risk for TLS w/ only 10-15% blasts
zofran premeds and prn
bowel regimen
discussed logistics and possible side effects related to azacitidine
consent form reviewed and signed; in chart
paper orders in chart for azacitidine x4 days
Patient History
History of Present Illness
This is a 69yo M w/ recently diagnosed high-risk MDS with severe pancytopenia requiring pRBC transfusions, who was sent to the ER yesterday from my office, after noting to be neutropenic and with persistent fevers, in the absence of infection
symptoms, temp up to 101. Tylenol helps for some time. He notes migratory bone pain.
Past-Medical/Surgical History
Past Medical History
Past Medical History: Reports Asthma and Cancer (Leukemia, prior skin melanoma)
Past Surgical History: Reports None
Social History
Tobacco: Non-smoker
Alcohol: Occasional
Drug: None
Personal:
Living: With Family
Family History
Family History: Not pertinent
Patient Medication
�Medication �Instructions �Recorded �Confirmed �Last Taken �Type
albuterol sulfate 90 mcg/actuation 2 puff inhalation R Q6HPRN PRN sob 05/08/25 05/08/25 Unknown History
aerosol inhaler
coQ10 (ubiquinol) 100 mg capsule 100 mg PO DAILY 05/08/25 05/08/25 7 Days Ago History
~05/01/25
glucosamine sulf dipot 1 cap PO DAILY 05/08/25 05/08/25 7 Days Ago History
chlr,msm,chond 550 mg-C 30 mg-donald ~05/01/25
1 mg capsule (Glucosamine
Chondroitin)
therapeutic multivitamin 1 tab PO DAILY 05/08/25 05/08/25 7 Days Ago History
~05/01/25
turmeric 400 mg capsule 400 mg PO DAILY 05/08/25 05/08/25 7 Days Ago History
~05/01/25
Active Medications
Generic Name Dose Route Start Last Admin
Trade Name Freq PRN Reason Stop Dose Admin
Acetaminophen 650 mg 05/08/25 21:28 05/09/25 07:55
Acetaminophen 325 Mg Tablet PO 06/05/25 21:27 650 mg
Q4HPRN PRN Administration
mild pain/QUESADA/temp> 100.4F
Albuterol 2 puff 05/08/25 21:28
Albuterol Hfa [90 Mcg/Dose] Inhaler INH
R Q6HPRN PRN
sob
Protocol
Cefepime HCl 2,000 mg 05/09/25 02:00 05/09/25 01:48
Cefepime Hcl 2,000 Mg/12.5 Ml Vial IV 2,000 mg
Q8H JORDY Administration
Heparin Sodium 5,000 units 05/08/25 21:28 05/09/25 07:37
Heparin 5,000 Units/Ml 1 Ml Vial SC 06/05/25 21:27 5,000 units
Q12 JORDY Administration
Vancomycin HCl 1,250 mg/ 275 mls @ 183.33 mls/hr 05/09/25 06:00 05/09/25 05:33
Sodium Chloride IV 275 mls
Q12H JORDY Administration
Azacitidine 79.1 mg/ Device 3.164 mls @ 189.84 mls/hr 05/09/25 10:00
SC 05/09/25 10:05
Q5M JORDY
Multivitamins Therapeutic 1 tablet 05/09/25 08:00 05/09/25 07:36
Multivitamin Tablet PO 06/06/25 07:59 1 tablet
DAILY JORDY Administration
Ondansetron HCl 4 mg 05/08/25 21:28
Ondansetron 4 Mg/2 Ml Vial IV 06/05/25 21:27
Q6HPRN PRN
nausea and vomiting
Polyethylene Glycol 17 grams 05/08/25 21:28
Polyethylene Glycol Powder 17 Grams Packet PO 06/05/25 21:27
DAILYPRN PRN
constipation
Senna/Docusate Sodium 1 tablet 05/08/25 21:28
Docusate W/Senna (Anayeli-Colace) Tablet PO 06/05/25 21:27
BIDPRN PRN
constipation
Sodium Chloride 0 flush 05/08/25 22:00
Sodium Chloride 0.9% (Flush) Syringe IV 06/05/25 21:59
PER PROTOCOL JORDY
Sterile Water 10 ml 05/09/25 02:00 05/09/25 01:48
Sterile Water For Injection 10 Ml Vial IV 06/06/25 01:59 10 ml
Q8H JORDY Administration
Review of Systems
-
History Source: Patient and Family
Constitutional: Reports Fever, Weight Loss, No Appetite, Fatigue, Night Sweats and Weakness
EENT: Denies Sore Throat, Mouth Pain or Mouth Swelling
Respiratory: Denies Cough, Hemoptysis, Trouble Breathing or Wheezing
Cardiac: Reports Diaphoresis; Denies Chest Pain, Palpitations or Syncope
GI: Reports Constipated; Denies Abdominal Pain, Nausea, Vomiting, Diarrhea, GERD or Indigestion
: Denies Dysuria or Frequency
Musculoskeletal: Reports Joint Pain and Muscle Pain
Skin: Denies Itching or Rash
Neuro: Reports Weakness; Denies Headache
Hematologic/Lymphatic: Reports Bruising
Physical Exam
-
General: Well Developed, Well Nourished, No Apparent Distress and Fever
HEENT: Negative Jaundice or Moist Mucous Membranes
Cardiology: Normal Sinus Rhythm
Pulmonary: Clear
GI: Soft
Musculoskeletal: No Clubbing, No Cyanosis and No Edema
Extremities: No C/C/E
Neurology: Non Focal, No Lateralizing Symptoms and No Word Finding Difficulty
Skin: Warm and Dry; Negative Rash
Hematologic / Lymphatic: No Lymphadenopathy
Psych: Calm and Intact Judgement/Insight
Labs
Lab Results
WBC 2.5 10^3/uL (4.8-10.8) L 05/09/25 05:37
RBC 2.30 10^6/uL (4.70-6.10) L 05/09/25 05:37
Hgb 7.8 g/dL (13.0-18.0) L 05/09/25 05:37
Hct 22.5 % (39.0-52.0) L 05/09/25 05:37
MCV 97.8 fL (80.0-94.0) H 05/09/25 05:37
MCH 33.9 pg (27.0-31.0) H 05/09/25 05:37
MCHC 34.7 g/dL (33.0-37.0) 05/09/25 05:37
RDW 14.9 % (11.5-14.5) H 05/09/25 05:37
Plt Count 48 10^3/uL (130-400) L 05/09/25 05:37
MPV Not Reportable 05/09/25 05:37
Creatinine 0.8 mg/dL (0.7-1.3) 05/09/25 05:37
Vital Signs
Vital Signs
Temp Pulse Resp BP Pulse Ox
99.5 F 85 16 118/70 96
05/09/25 07:20 05/09/25 07:20 05/09/25 07:20 05/09/25 07:20 05/09/25 07:20
--- NOTE | 2025-05-09 09:48 | PHA.VAN.FU ---
Vancomycin Assessment / Plan
- Assessment
Renal Function: Stable
In the past 24 hrs, patient has been: Afebrile
Concomitant Antimicrobials: cefepime
- Dosing Plan
Continue: Vanc 1250mg Q12H
- Monitoring Plan
No level(s) ordered at this time: consider levels in next few days
- Follow Up
Pharmacy will continue to follow.
Vancomycin Follow UP
- -
Patient Age: 69
Patient Sex: Male
Vancomycin Day #: 2
Indication: Neutropenic Fever
Requesting Provider: Dr. Love / Jesus
Pertinent Antimicrobial Allergies:
no pertinent antibiotic allergies
Height / Weight:
Height 5 ft 11 in
Actual Weight 93.2 kg
Pertinent Past Medical History: MDS
- Vital Signs / Lab Results
Temp Pulse Resp BP Pulse Ox
99.5 F 85 16 118/70 96
05/09/25 07:20 05/09/25 07:20 05/09/25 07:20 05/09/25 07:20 05/09/25 07:20
Lab Results - Hematology
05/08/25 05/09/25
16:23 05:37
WBC 2.9 L 2.5 L
Lab Results - Chemistry
05/08/25 05/09/25
16:23 05:37
BUN 17 14
Creatinine 0.7 0.8
Estimated Creat Clear 108 94
Albumin 3.8
Lab Results - Urine
05/08/25
16:29
Urine Nitrite (Reflex) Negative
Leukocyte Esterase Rfl 1+ A
Ur Squamous Epith Cells 3-5
Microbiology Results
05/08/25 19:54 Influenza Types A & B (NISHA) - Final
Nasal Swab Negative for Influenza A & B, NAAT
Negative results must be combined with clinical observations
and patient history.
Nucleic Acid Amplification test (NAAT)performed on the
[employer] platform.
--- NOTE | 2025-05-09 09:54 | W.PN.HOSP.TC ---
Today's Communication/Plan
-
f/w oncology & ID recommendations
Assessment / Plan
Assessment / Plan
Physical Exam
General: Well Developed, Well Nourished and No Apparent Distress
HEENT: Normocephalic, Moist mucous membranes and Atraumatic
Respiratory: Clear
Cardiac: S1/S2 and Regular Rhythm; No Murmur or Rub
GI: Soft, Non Tender, Non Distended and Normal Bowel Sounds; No Organomegaly
Rectal: Deferred by Provider
Musculoskeletal: No Clubbing, No Cyanosis and Edema, Left Lower Extremity (Trace)
Skin: No Rash
Neuro: Nonfocal/grossly intact
Psych: calm
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 Workup in the ED does not show convincing
source of infection. Given a minimal separate status and transfusion dependent and patient will be initiated on azacitidine by oncology tomorrow.
PLAN:
Fevers - night fevers, night sweats of unknown source at this time. Likely related to leukemia. Afebrile here
treat with Tylenol
-Urine and blood cultures have been sent
-Negative COVID, influenza
-Exam is benign and no evidence of an intra-abdominal process/ respiratory symptoms.
c/w ID & oncology, no need for CT studies with absence of localized symptoms, likely fever induced by ongoing BM disease.
-For now we will continue with IV cefepime
Appreciate ID & oncology help.
Pancytopenia -transfusion dependent
-Type and screen, consented,
-No evidence of bleeding, Daily H&H, transfuse for hemoglobin of less than 7
-Platelet count 50, no evidence of mucosal bleeding, transfuse for platelet count less than 10 or if signs of mucosal bleeding
-Patient is to start SSI today and per oncology
-Oncology consultation
Asthma - No evidence of acute process. Mitch has been held
- continue prn albuterol
DVT prophylaxis�heparin sq q 12 for now
CODE STATUS�full code
Anticipated Discharge: > 48 hours
Subjective/Interval History
-
Date of Service: May 09, 2025
No chest pain
No cough
Objective Data
-
Labs:
Laboratory Results
05/09/25
05:37
WBC 2.5 L
Hgb 7.8 L
Hct 22.5 L
Plt Count 48 L
Sodium 138
Potassium 4.3
Chloride 103
Carbon Dioxide 30
BUN 14
Creatinine 0.8
Glucose 98
Calcium 8.6
Vital Signs:
Vital Signs
Temp Pulse Resp BP Pulse Ox
99.5 F 85 16 118/70 96
05/09/25 07:20 05/09/25 07:20 05/09/25 07:20 05/09/25 07:20 05/09/25 07:20
I&O
05/08/25 05/09/25 05/10/25
06:59 06:59 06:59
Intake Total 480 / 480
Balance 480 / 480
[2025-05-09] MEDS: ZOFRAN 8 MG PO (09:57)
[2025-05-09] MEDS: VIDAZA 3.164 MG SC ×2 (10:14→10:15)
[2025-05-09 10:27] LABS: LDH 216 U/L (120-246); Uric Acid 4.0 mg/dl (3.5-8.5)
--- NOTE | 2025-05-09 10:27 | PTCARENOTE ---
Pt received first dose of sub q Vidaza, administered by Chemo RN. Pt provided with teaching materials, medicated with zofran prior to treatment. Pt placed on chemo precautions, awaiting tx to [facility].
[2025-05-09 10:41] LABS: Platelets Checked Yes
[2025-05-09 10:47] LABS: Normal RBC Morphology Yes; Total Cells Counted 100
[2025-05-09 10:50] LABS: Absolute Neutrophils -Man Diff 0.4 10^3/uL (1.4-6.5)
[2025-05-09 11:32] LABS: Anisocytosis 1+; Hypochromasia 1+; Normal RBC Morphology No; Platelets Checked Yes; Total Cells Counted 100
[2025-05-09 11:34] LABS: Absolute Neutrophils -Man Diff 0.3 10^3/uL (1.4-6.5)
[2025-05-09] MEDS: TYLENOL 1000 MG PO ×2 (11:57→18:03)
[2025-05-09 12:31] LABS: Hepatitis C Antibody Negative (Negative)
[2025-05-09 14:22] VITALS: BP 125/72
--- NOTE | 2025-05-09 16:12 | CM ---
CM met with pt and spouse bedside
They reside in a capecod with 2STE, first floor set up
Pt is independent with his ADLs
Has a WW, rollator, and commode for use if needed
Denies financial insecurities andhas Rx coverage
PCP- Lucille Anand
Rx- [facility] [address]
Pt on neutropenic precautions as chemo has been initiated in hospital
Pt plan for 7 daily does of Azacitidine (Vidaza) dose 08/02 today for heme/onc noted 05/09
Dtrs added to contact's per request
Dr. Yaneli Zamora (construction carpenter in [place] [phone])
Rebecca Yin ([phone])
Update to admissions
Email address provided to [email or web address] to assist pt and his dtr with accessing portal
Discharge Disposition- anticipate home no needs
[2025-05-09 23:06] VITALS: BP 109/63
--- NOTE | 2025-05-10 | PTCARENOTE ---
Pt reports significant pain, 10/10 B/L arms and legs. Pt reports Tylenol takes forever to kick in. Pt would like to stay away from narcotics. Domo VINES notified, Order obtained for IV Tylenol. Will continue to monitor.
[2025-05-10] MEDS: STERILE WATER FOR INJECTION 10 ML IV ×3 (01:01→17:36)
[2025-05-10] MEDS: MAXIPIME 2000 MG IV ×3 (01:01→17:35)
[2025-05-10] MEDS: OFIRMEV 100 IV (03:56)
--- NOTE | 2025-05-10 06:19 | PTCARENOTE ---
Pt reports IV Tylenol worked wonderful and is asking for another dose. Unfortunately pt has maxed out the allowed MG of Tylenol in a 24 hour time frame and cannot have more until 9am. House CODE ENFORCEMENT INSPECTOR notified. Awaiting new ordered. Emotional support
provided. Will continue to monitor.
--- NOTE | 2025-05-10 06:47 | W.PN.UPDATE ---
Update Note
Progress Note Update
RN reports patient in severe generalized bone pains and Tylenol PO is not helping.
IV Tylenol ordered and given around 0400, and continuos to have pain. will avoid Toradol at present.
will order Dilaudid 0 25mg IV prn.
[2025-05-10 07:00] VITALS: BP 125/61
[2025-05-10 07:07] LABS: ALT (SGPT) 33 U/L (0-50); AST (SGOT) 19 U/L (17-59); Albumin 3.3 g/dl (3.5-5.0); Alkaline Phosphatase 73 U/L (38-126); Blood Urea Nitrogen 13 mg/dl (9-20); Calcium 8.8 mg/dl (8.4-10.2); Carbon Dioxide 30 mmol/L (22-30); Chloride 103 mmol/L (98-107); Estimated Creatinine Clearance 108 ml/min; Glucose 105 mg/dl (70-99); LDH 207 U/L (120-246); Magnesium 2.2 mg/dl (1.6-2.3); Potassium 4.3 mmol/L (3.5-5.1); Sodium 137 mmol/L (135-145); Total Protein 5.9 g/dl (6.3-8.2); Uric Acid 3.7 mg/dl (3.5-8.5); eGFR > 60.00
[2025-05-10] MEDS: DILAUDID 0.25 MG IV (07:12)
[2025-05-10] MEDS: THERAGRAN 1 TABLET PO (07:53)
[2025-05-10] MEDS: MIRALAX 17 GRAMS PO ×2 (07:53→20:38)
[2025-05-10] MEDS: HEPARIN 5000 UNITS SC (07:54)
[2025-05-10] MEDS: COMPAZINE 10 MG IV (07:54)
[2025-05-10 08:19] LABS: Hematocrit 22.2 % (39.0-52.0); Hemoglobin 7.6 g/dL (13.0-18.0); Mean Corp Hgb Conc. 34.2 g/dL (33.0-37.0); Mean Corpuscular Volume 97.8 fL (80.0-94.0); Platelet Count 45 10^3/uL (130-400); Red Cell Dist. Width 14.8 % (11.5-14.5)
[2025-05-10 08:23] LABS: Normal RBC Morphology No; Platelets Checked Yes
[2025-05-10 08:24] LABS: Anisocytosis Slight; Hypochromasia Slight; Polychromasia Slight; Total Cells Counted 100
[2025-05-10 08:26] LABS: Absolute Neutrophils -Man Diff 0.6 10^3/uL (1.4-6.5)
--- NOTE | 2025-05-10 08:40 | PTCARENOTE ---
notified Onco (Zippin) critical result by TT. Message received/read
[2025-05-10] MEDS: ZOFRAN 8 MG PO (08:47)
[2025-05-10] MEDS: VIDAZA 3.164 MG SC ×2 (09:37)
[2025-05-10] MEDS: TYLENOL 1000 MG PO ×3 (09:43→22:59)
--- NOTE | 2025-05-10 10:46 | W.PN.ID1 ---
Date of Service
Date of Service: May 10, 2025
Today's Communication
Continue antibiotics.
Assessment / Plan
Febrile neutropenia
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
Anemia
Thrombocytopenia
Recommendations:
Continue with cefepime 2 gm IV q.8 hours.
Blood cultures have been obtained and are pending; NGTD.
Patient has started chemotherapy.
Trend white count and temperature curve.
Will repeat blood cultures if fevers persist.
����������������������������������������������������������
Chief Complaint
-: Fever
Subjective / Review of Systems
Patient seen and examined. Notes myalgias overnight. Fever also noted overnight.
Vital Signs / Physical Exam
Vital Signs
Vital Signs
Temp Pulse Resp BP Pulse Ox
100.4 F H 82 18 125/61 95
05/10/25 07:00 05/10/25 07:00 05/10/25 07:00 05/10/25 07:00 05/10/25 07:00
Physical Exam
Constitutional: No Acute Distress, Comfortable and Non-toxic
Eyes: Sclera Anicteric
Cardiovascular: S1/S2; Negative S3/S4
Pulmonary: Non Labored; Negative Wheezes or Rhonchi
Gastrointestinal: Soft, Non Tender and Non Distended
Neurological: Awake and Alert
Psychological: Calm
Objective Data
Lab Data
Lab Results
05/10/25 05:48
05/10/25 05:48
Estimated Creat Clear 108 ml/min 05/10/25 05:48
Total Bilirubin 0.6 mg/dl (0.2-1.3) 05/10/25 05:48
AST 19 U/L (17-59) 05/10/25 05:48
ALT 33 U/L (0-50) 05/10/25 05:48
Alkaline Phosphatase 73 U/L (38-126) 05/10/25 05:48
Most recent labs reviewed.
Micro Results:
05/08/25 16:59 Blood Culture - Preliminary
Blood/Venous No Growth in 24 hours- Final report to follow
05/08/25 16:24 Blood Culture - Preliminary
Blood/Venous No Growth in 24 hours- Final report to follow
05/08/25 16:29 Urine Culture - Final
Urine NO GROWTH
05/08/25 19:54 Influenza Types A & B (NISHA) - Final
Nasal Swab Negative for Influenza A & B, NAAT
Negative results must be combined with clinical observations
and patient history.
Nucleic Acid Amplification test (NAAT)performed on the
[facility] platform.
Imaging:
05/08/2025 CXR (2 view): no convincing focal infiltrates. No significant pleural effusion. No visualized pneumothorax. Please see full dictation for additional detail. Film personally viewed.
--- NOTE | 2025-05-10 11:07 | PTCARENOTE ---
During administration of Vidaza, erythema noted around injection sites from yesterday. Dr Moses notified of findings.
--- NOTE | 2025-05-10 11:42 | W.PN.HOSP.TC ---
Today's Communication/Plan
-
c/w Azacitidine
Pre-medicate IV Compazine
Bowel regimen
Increase PRN IV Dilaudid
Assessment / Plan
Assessment / Plan
Physical Exam
General: Well Developed, Well Nourished and No Apparent Distress
HEENT: Normocephalic, Moist mucous membranes and Atraumatic
Respiratory: Clear
Cardiac: S1/S2 and Regular Rhythm; No Murmur or Rub
GI: Soft, Non Tender, Non Distended and Normal Bowel Sounds; No Organomegaly
Rectal: no rectal bleeding
Musculoskeletal: No Clubbing, No Cyanosis and Edema, Left Lower Extremity (Trace)
Skin: No Rash
Neuro: Nonfocal/grossly intact
Psych: calm
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 Workup in the ED does not show convincing
source of infection. Given a minimal separate status and transfusion dependent and patient will be initiated on azacitidine by oncology tomorrow.
PLAN:
# Acute febrile neutropenic fevers
Likely related to leukemia.
treat with Tylenol
-Urine and blood cultures are NGTD, reculture blood if recurrent high fever
-Negative COVID, influenza
No evidence of an intra-abdominal process/ respiratory symptoms.
c/w ID & oncology, no need for CT studies with absence of localized symptoms, likely fever induced by ongoing BM disease.
-continue with IV cefepime
Appreciate ID & oncology help.
#Pancytopenia -transfusion dependent
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
-Type and screen, consented,
-No evidence of bleeding, Daily H&H, transfuse for hemoglobin of less than 7
-Platelet count 50, no evidence of mucosal bleeding, transfuse for platelet count less than 10 or if signs of mucosal bleeding
Started on SQ Azacitidine day #2, pre-medicate with Compazine IV
Primary oncologist Dr Moses, appreciate help
# cancer bone pain
will c/w Tylenol
increase dose and frequency of PRN IV Dilaudid
# Constipation
chemo has significant side effects with GI ( nausea/ constipation) and aches/ chest pain
Will c/w symptomatic treatments
Increase to MiraLAX BID and add Qpm Dulcolax.
Asthma - No evidence of acute process. Dulera has been held
- continue prn albuterol
DVT prophylaxis�heparin sq q 12 for now
CODE STATUS�full code
Total time spent to see the patient, examine the patient, review data and lab result, discuss treatment plan with patient, nursing staff around 55 minutes
Anticipated Discharge: > 48 hours
Subjective/Interval History
-
Date of Service: May 10, 2025
He reports bone pain mostly in arms/ hands/ back, asking fro better pain control
Aches and not feeling well overall
No chest pain
No sob
reports constipation
Objective Data
-
Labs:
Laboratory Results
05/10/25
05:48
WBC 2.5 L
Hgb 7.6 L
Hct 22.2 L
Plt Count 45 L
Sodium 137
Potassium 4.3
Chloride 103
Carbon Dioxide 30
BUN 13
Creatinine 0.7
Glucose 105 H
Calcium 8.8
Total Bilirubin 0.6
AST 19
ALT 33
Alkaline Phosphatase 73
Vital Signs:
Vital Signs
Temp Pulse Resp BP Pulse Ox
100.4 F H 82 18 125/61 95
05/10/25 07:00 05/10/25 07:00 05/10/25 07:00 05/10/25 07:00 05/10/25 07:00
I&O
05/09/25 05/10/25 05/11/25
06:59 06:59 06:59
Intake Total 480 / 480 580 / 580
Balance 480 / 480 580 / 580
--- NOTE | 2025-05-10 11:49 | PTCARENOTE ---
Pt reports sweating, feeling feverish, oral temp 98.8, room temp was set at almost 80.. reduced room temp to 70. Ice pack for head cooling. Will watch for further issues. Dr Solomon notified by TT
--- NOTE | 2025-05-10 12:47 | W.PN.ONC2 ---
Today's Communication / Plan
-
Inpatient chemoRx through Thursday then transition to Tx as outpatient next week.
Impression
Impression
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
fevers, neutropenia
pancytopenia
Plan
Plan
fevers are most likely related to MDS; commonly seen w/ TP53 loss
empiric abx and infection w/u underway, though suspicion is low
case was discussed w/ leukemia MD at [facility] yesterday, who recommended treatment w/ azacitidine
will initiate azacitidine SQ today, plan for 7 daily doses. Can transition to outpatient dosing in our [place] office when able, insurance auth process underway
monitor labs daily, low risk for TLS w/ only 10-15% blasts
zofran premeds and prn
bowel regimen
discussed logistics and possible side effects related to azacitidine
consent form reviewed and signed; in chart
paper orders in chart for azacitidine x4 days
Subjective/Objective
Chief Complaint
ACS Heme Onc
Subjective
No complaints. No N/V. Tolerating chemotherapy so far well. S/P 2 doses.
Vital Signs:
Vital Signs
Temp Pulse Resp BP Pulse Ox
100.4 F H 82 18 125/61 95
05/10/25 07:00 05/10/25 07:00 05/10/25 07:00 05/10/25 07:00 05/10/25 07:00
Lab Results:
Laboratory Data
WBC 2.5 10^3/uL (4.8-10.8) L 05/10/25 05:48
Hgb 7.6 g/dL (13.0-18.0) L 05/10/25 05:48
Plt Count 45 10^3/uL (130-400) L 05/10/25 05:48
eGFR > 60.00 05/10/25 05:48
Physical Exam
Cardiology: S1 and S2
Pulmonary: Clear
GI: Soft
[2025-05-10 15:00] VITALS: BP 132/69
[2025-05-10] MEDS: DILAUDID 0.5 MG IV ×2 (15:01→20:46)
--- NOTE | 2025-05-10 16:10 | CM ---
Patient seen at bedside with Jackie
states she is able now to access portal
neutropenic precautions
per onc note - Inpatient chemoRx through Thursday then transition to Tx as outpatient next week
stated she has a wheelchair
PLAN: Home, no needs anticipated when stable
[2025-05-10] MEDS: DULCOLAX 10 MG PO (17:30)
[2025-05-10 23:04] VITALS: BP 136/66
[2025-05-11] MEDS: MAXIPIME 2000 MG IV ×3 (02:04→17:34)
[2025-05-11] MEDS: STERILE WATER FOR INJECTION 10 ML IV ×3 (02:05→17:34)
[2025-05-11 07:15] LABS: ALT (SGPT) 37 U/L (0-50); AST (SGOT) 24 U/L (17-59); Albumin 3.3 g/dl (3.5-5.0); Alkaline Phosphatase 95 U/L (38-126); Blood Urea Nitrogen 16 mg/dl (9-20); Calcium 8.6 mg/dl (8.4-10.2); Carbon Dioxide 30 mmol/L (22-30); Chloride 101 mmol/L (98-107); Estimated Creatinine Clearance 94 ml/min; Glucose 108 mg/dl (70-99); Magnesium 2.1 mg/dl (1.6-2.3); Potassium 4.4 mmol/L (3.5-5.1); Sodium 136 mmol/L (135-145); Total Protein 5.9 g/dl (6.3-8.2); eGFR > 60.00
[2025-05-11 07:20] LABS: Hematocrit 21.7 % (39.0-52.0); Hemoglobin 7.5 g/dL (13.0-18.0); Mean Corp Hgb Conc. 34.6 g/dL (33.0-37.0); Mean Corpuscular Volume 98.6 fL (80.0-94.0); Platelet Count 44 10^3/uL (130-400); Red Cell Dist. Width 14.6 % (11.5-14.5)
[2025-05-11 07:24] LABS: Uric Acid 3.6 mg/dl (3.5-8.5)
[2025-05-11 07:36] LABS: Anisocytosis Slight; Hypochromasia Slight; Normal RBC Morphology No; Platelets Checked Yes; Total Cells Counted 100
[2025-05-11 07:37] LABS: Absolute Neutrophils -Man Diff 0.7 10^3/uL (1.4-6.5)
--- NOTE | 2025-05-11 07:43 | PTCARENOTE ---
TT oncologist Spear critical result absolute neutrophil count of 0.7
[2025-05-11] MEDS: MIRALAX 17 GRAMS PO (07:57)
[2025-05-11] MEDS: COMPAZINE 10 MG IV (07:58)
[2025-05-11] MEDS: THERAGRAN 1 TABLET PO (07:58)
[2025-05-11] MEDS: TYLENOL 1000 MG PO ×3 (07:58→22:50)
[2025-05-11 08:09] VITALS: BP 128/77
[2025-05-11 08:46] LABS: LDH 216 U/L (120-246)
--- NOTE | 2025-05-11 08:53 | W.PN.ONC2 ---
Today's Communication / Plan
-
neutropenic precautions, transfuse Hgb <7, platelets <20 with NF, CMV irradiated products
avoid nsaids, antiplatelet, anticoagulation with platelets <50,000
Impression
Impression
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
fevers, neutropenia -Bcx NTD, Ucx negative, influenza negative, CXR no evidence PNA
pancytopenia
Plan
Plan
fevers are most likely related to MDS; commonly seen w/ TP53 loss
empiric abx and infection w/u underway, though suspicion is low
neutropenic precautions
Dr. Moses discussed with leukemia specialist at [place] 05/08, who recommended treatment w/ azacitidine. Today is Day 3 of 7
Can transition to outpatient dosing in our [place] office when able, insurance auth process underway
low risk for TLS w/ only 10-15% blasts -normal LDH/uric acid -continue to monitor daily
zofran premeds and prn
bowel regimen
Subjective/Objective
Subjective
Tmax 101.4F, no hypoxia or hypotension
using tylenol, hydromorphone prn pain
using ondansetron amd prochlorperazine for nausea
Vital Signs:
Vital Signs
Temp Pulse Resp BP Pulse Ox
101.4 F H 85 17 128/77 94
05/11/25 08:09 05/11/25 08:09 05/11/25 08:09 05/11/25 08:09 05/11/25 08:09
Lab Results:
Laboratory Data
WBC 2.5 10^3/uL (4.8-10.8) L 05/11/25 06:03
Hgb 7.5 g/dL (13.0-18.0) L 05/11/25 06:03
Plt Count 44 10^3/uL (130-400) L 05/11/25 06:03
eGFR > 60.00 05/11/25 06:03
Physical Exam
HEENT: Moist Mucous Membranes; No Jaundice
Pulmonary: Other (unlabored)
GI: Soft
Extremities: Pulses Present; No Edema
Neuro: Non Focal
--- NOTE | 2025-05-11 09:35 | W.PN.HOSP.TC ---
Today's Communication/Plan
-
Re-culture blood
f/w Oncology recommendations
Trial of oxycodone
Assessment / Plan
Assessment / Plan
Physical Exam
General: Well Developed, Well Nourished and No Apparent Distress
HEENT: Normocephalic, Moist mucous membranes and Atraumatic
Respiratory: Clear
Cardiac: S1/S2 and Regular Rhythm; No Murmur or Rub
GI: Soft, Non Tender, Non Distended and Normal Bowel Sounds;
Rectal: no rectal bleeding
Musculoskeletal: No Clubbing, No Cyanosis and Edema
Skin: No Rash
Neuro: Nonfocal/grossly intact
Psych: calm
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 Workup in the ED does not show convincing
source of infection. Given a minimal separate status and transfusion dependent and patient will be initiated on azacitidine by oncology tomorrow.
PLAN:
# Acute febrile neutropenic fevers
Likely related to leukemia.
treat with Tylenol
-Urine and blood cultures are NGTD, reculture blood 16 for high temperature.
-Negative COVID, influenza
No evidence of an intra-abdominal process/ respiratory symptoms.
c/w ID & oncology, no need for CT studies with absence of localized symptoms, likely fever induced by ongoing BM disease.
-continue with IV cefepime
Appreciate ID & oncology help.
#Pancytopenia -transfusion dependent
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
-Type and screen, consented,
-No evidence of bleeding, Daily H&H, transfuse for hemoglobin of less than 7
-Platelet count 50, no evidence of mucosal bleeding, transfuse for platelet count less than 10 or if signs of mucosal bleeding
Started on SQ Azacitidine day #3, pre-medicate with Compazine IV
Primary oncologist Dr Moses, appreciate help
# cancer bone pain
will c/w Tylenol
Patient reported Dilaudid helping but does not last long. We cannot do Vicodin/Percocet to avoid high dose of acetaminophen
Discussed with patient and , will try oxycodone. Keep PRN IV Dilaudid
# Constipation
Good BM 05/11
chemo has significant side effects with GI ( nausea/ constipation) and aches/ chest pain
c/w bowel regimen
c/w MiraLAX and Qpm Dulcolax.
Asthma - No evidence of acute process. Dulera has been held
- continue prn albuterol
DVT prophylaxis�heparin sq q 12 for now
CODE STATUS�full code
Total time spent to see the patient, examine the patient, review data and lab result, discuss treatment plan with patient, nursing staff around 55 minutes
Anticipated Discharge: > 48 hours
Subjective/Interval History
-
Date of Service: May 11, 2025
Dilaudid does not last long
Objective Data
-
Labs:
Laboratory Results
05/11/25
06:03
WBC 2.5 L
Hgb 7.5 L
Hct 21.7 L
Plt Count 44 L
Sodium 136
Potassium 4.4
Chloride 101
Carbon Dioxide 30
BUN 16
Creatinine 0.8
Glucose 108 H
Calcium 8.6
Total Bilirubin 0.7
AST 24
ALT 37
Alkaline Phosphatase 95
Vital Signs:
Vital Signs
Temp Pulse Resp BP Pulse Ox
101.4 F H 85 17 128/77 94
05/11/25 08:09 05/11/25 08:09 05/11/25 08:09 05/11/25 08:09 05/11/25 08:09
I&O
05/10/25 05/11/25 05/12/25
06:59 06:59 06:59
Intake Total 580 / 580 1620 / 1620
Balance 580 / 580 1620 / 1620
[2025-05-11] MEDS: ZOFRAN 8 MG PO (10:25)
[2025-05-11] MEDS: VIDAZA 3.164 MG SC ×2 (10:37→10:38)
--- NOTE | 2025-05-11 10:43 | PTCARENOTE ---
Vidaza administered to patient. (see MAR), bruising noted on abdomen at previous injection sites. denies pain or discomfort, will continue to monitor.
--- NOTE | 2025-05-11 12:22 | CM ---
chart reviewed
neutropenic precautions
per note - continuation of Vidaza day #3/7. Outpatient authorization pending
PLAN: Home, no needs anticipated when stable
--- NOTE | 2025-05-11 12:37 | W.PN.ID1 ---
Date of Service
Date of Service: May 11, 2025
Today's Communication
Continue antibiotics.
Assessment / Plan
Febrile neutropenia
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
Anemia
Thrombocytopenia
Recommendations:
Continue with cefepime 2 gm IV q.8 hours.
Blood cultures NGTD.
Patient on chemotherapy.
Trend white count and temperature curve.
����������������������������������������������������������
Chief Complaint
-: Fever
Subjective / Review of Systems
Patient seen and examined. Reports ongoing fever, along with occasional chills.
Vital Signs / Physical Exam
Vital Signs
Vital Signs
Temp Pulse Resp BP Pulse Ox
101.4 F H 85 17 128/77 94
05/11/25 08:09 05/11/25 08:09 05/11/25 08:09 05/11/25 08:09 05/11/25 08:09
Physical Exam
Constitutional: No Acute Distress, Comfortable and Non-toxic
Eyes: Sclera Anicteric
Cardiovascular: S1/S2; Negative S3/S4
Pulmonary: Non Labored; Negative Wheezes or Rhonchi
Gastrointestinal: Soft, Non Tender and Non Distended
Neurological: Awake and Alert
Psychological: Calm
Objective Data
Lab Data
Lab Results
05/11/25 06:03
05/11/25 06:03
Estimated Creat Clear 94 ml/min 05/11/25 06:03
Total Bilirubin 0.7 mg/dl (0.2-1.3) 05/11/25 06:03
AST 24 U/L (17-59) 05/11/25 06:03
ALT 37 U/L (0-50) 05/11/25 06:03
Alkaline Phosphatase 95 U/L (38-126) 05/11/25 06:03
Most recent labs reviewed.
Micro Results:
05/11/25 08:21 Blood Culture - Pending
Blood/Venous
05/08/25 16:59 Blood Culture - Preliminary
Blood/Venous No Growth in 48 hours- Final report to follow
05/08/25 16:24 Blood Culture - Preliminary
Blood/Venous No Growth in 48 hours- Final report to follow
05/08/25 16:29 Urine Culture - Final
Urine NO GROWTH
05/08/25 19:54 Influenza Types A & B (NISHA) - Final
Nasal Swab Negative for Influenza A & B, NAAT
Negative results must be combined with clinical observations
and patient history.
Nucleic Acid Amplification test (NAAT)performed on the
[employer] platform.
Imaging:
05/08/2025 CXR (2 view): no convincing focal infiltrates. No significant pleural effusion. No visualized pneumothorax. Please see full dictation for additional detail. Film personally viewed.
[2025-05-11] MEDS: ROXICODONE 5 MG PO (13:51)
[2025-05-11 15:04] VITALS: BP 126/70
[2025-05-11] MEDS: DULCOLAX 10 MG PO (17:33)
[2025-05-11 23:00] VITALS: BP 114/64
[2025-05-12 00:28] VITALS: BP 114/64
[2025-05-12] MEDS: MAXIPIME 2000 MG IV ×3 (03:24→17:44)
[2025-05-12] MEDS: STERILE WATER FOR INJECTION 10 ML IV ×3 (03:24→17:44)
[2025-05-12] MEDS: TYLENOL 1000 MG PO ×3 (05:25→20:02)
[2025-05-12 07:00] VITALS: BP 106/65
[2025-05-12 07:13] LABS: ALT (SGPT) 52 U/L (0-50); AST (SGOT) 39 U/L (17-59); Albumin 3.2 g/dl (3.5-5.0); Alkaline Phosphatase 99 U/L (38-126); Blood Urea Nitrogen 17 mg/dl (9-20); Calcium 8.8 mg/dl (8.4-10.2); Carbon Dioxide 30 mmol/L (22-30); Chloride 101 mmol/L (98-107); Estimated Creatinine Clearance 108 ml/min; Glucose 110 mg/dl (70-99); LDH 231 U/L (120-246); Magnesium 2.3 mg/dl (1.6-2.3); Potassium 4.3 mmol/L (3.5-5.1); Sodium 135 mmol/L (135-145); Total Protein 6.0 g/dl (6.3-8.2); Uric Acid 3.7 mg/dl (3.5-8.5); eGFR > 60.00
[2025-05-12 07:44] LABS: Hematocrit 21.7 % (39.0-52.0); Hemoglobin 7.2 g/dL (13.0-18.0); Mean Corp Hgb Conc. 33.2 g/dL (33.0-37.0); Mean Corpuscular Volume 101.9 fL (80.0-94.0); Platelet Count 43 10^3/uL (130-400); Red Cell Dist. Width 14.9 % (11.5-14.5)
[2025-05-12 08:13] LABS: Platelets Checked Yes; Total Cells Counted 100
[2025-05-12 08:14] LABS: Anisocytosis Slight; Normal RBC Morphology No
[2025-05-12 08:15] LABS: Hypochromasia Slight; Polychromasia Slight
[2025-05-12 08:17] LABS: Absolute Neutrophils -Man Diff 0.4 10^3/uL (1.4-6.5)
[2025-05-12] MEDS: THERAGRAN 1 TABLET PO (09:32)
[2025-05-12] MEDS: MIRALAX 17 GRAMS PO (09:32)
--- NOTE | 2025-05-12 10:30 | W.PN.HOSP.TC ---
Today's Communication/Plan
-
Oncology doctor is following counts/ chemo treatments/ ordering for that
Assessment / Plan
Assessment / Plan
Physical Exam
General: Well Developed, Well Nourished and No Apparent Distress
HEENT: Normocephalic, Moist mucous membranes and Atraumatic
Respiratory: Clear
Cardiac: S1/S2 and Regular Rhythm; No Murmur or Rub
GI: Soft, Non Tender, Non Distended and Normal Bowel Sounds;
Rectal: no rectal bleeding
Musculoskeletal: No Clubbing, No Cyanosis and Edema
Skin: No Rash
Neuro: Nonfocal/grossly intact
Psych: calm
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 Workup in the ED does not show convincing
source of infection. Given a minimal separate status and transfusion dependent and patient will be initiated on azacitidine by oncology tomorrow.
PLAN:
# Acute febrile neutropenic fevers
Likely related to leukemia.
treat with Tylenol
-Urine and blood cultures are NGTD, reculture blood /16 for high temperature.
-Negative COVID, influenza
No evidence of an intra-abdominal process/ respiratory symptoms.
c/w ID & oncology, no need for CT studies with absence of localized symptoms, likely fever induced by ongoing BM disease.
-continue with IV cefepime
Appreciate ID & oncology help.
#Pancytopenia -transfusion dependent
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
-Type and screen, consented,
-No evidence of bleeding, Daily H&H, transfuse for hemoglobin of less than 7
-Platelet count 50, no evidence of mucosal bleeding, transfuse for platelet count less than 10 or if signs of mucosal bleeding
Started on SQ Azacitidine day #4, reached out to pharmacy/ oncolgy service to make sure treatment is continued. Pre-medicate with Compazine IV
Primary oncologist Dr Moses, appreciate help
# cancer bone pain
will c/w Tylenol
Patient reported Dilaudid helping but does not last long. We cannot do Vicodin/Percocet to avoid high dose of acetaminophen
Discussed with patient and , will try oxycodone. Keep PRN IV Dilaudid
# Constipation
Good BM 05/11
chemo has significant side effects with GI ( nausea/ constipation) and aches/ chest pain
c/w bowel regimen
c/w MiraLAX and Qpm Dulcolax.
Asthma - No evidence of acute process. Dulera has been held
- continue prn albuterol
DVT prophylaxis�heparin sq q 12 for now
CODE STATUS�full code
Total time spent to see the patient, examine the patient, review data and lab result, discuss treatment plan with patient, nursing staff around 55 minutes
Anticipated Discharge: > 48 hours
Subjective/Interval History
-
Date of Service: May 12, 2025
Sometimes headache
Tylenol for pain/ fever
No chest pain
No nausea
Objective Data
-
Labs:
Laboratory Results
05/12/25
06:19
WBC 2.3 L*
Hgb 7.2 L
Hct 21.7 L
Plt Count 43 L
Sodium 135
Potassium 4.3
Chloride 101
Carbon Dioxide 30
BUN 17
Creatinine 0.7
Glucose 110 H
Calcium 8.8
Total Bilirubin 0.7
AST 39
ALT 52 H
Alkaline Phosphatase 99
Vital Signs:
Vital Signs
Temp Pulse Resp BP Pulse Ox
98.6 F 90 19 106/65 96
05/12/25 07:00 05/12/25 07:00 05/12/25 07:00 05/12/25 07:00 05/12/25 07:00
I&O
05/11/25 05/12/25 05/13/25
06:59 06:59 06:59
Intake Total 1620 / 1620 570 / 570
Balance 1620 / 1620 570 / 570
--- NOTE | 2025-05-12 11:19 | W.PN.ID1 ---
Date of Service
Date of Service: May 12, 2025
Today's Communication
Continue antibiotics.
Assessment / Plan
Febrile neutropenia
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
- currently receiving chemotherapy (Vidaza)
Anemia
Thrombocytopenia
Recommendations:
ANC = 400 today
Continue with cefepime 2 gm IV q.8 hours.
Blood cultures NGTD.
Patient on chemotherapy.
Trend white count and temperature curve.
����������������������������������������������������������
Chief Complaint
-: Fever
Subjective / Review of Systems
Patient seen and examined. Reports feeling 'okay'. Reports subjective fevers, but afebrile since 8 AM yesterday morning.
Vital Signs / Physical Exam
Vital Signs
Vital Signs
Temp Pulse Resp BP Pulse Ox
98.6 F 90 19 106/65 96
05/12/25 07:00 05/12/25 07:00 05/12/25 07:00 05/12/25 07:00 05/12/25 07:00
Physical Exam
Constitutional: No Acute Distress, Comfortable and Non-toxic
Eyes: Sclera Anicteric
Cardiovascular: S1/S2; Negative S3/S4
Pulmonary: Non Labored; Negative Wheezes or Rhonchi
Gastrointestinal: Soft, Non Tender and Non Distended
Neurological: Awake and Alert
Psychological: Calm
Objective Data
Lab Data
Lab Results
05/12/25 06:19
05/12/25 06:19
Estimated Creat Clear 108 ml/min 05/12/25 06:19
Total Bilirubin 0.7 mg/dl (0.2-1.3) 05/12/25 06:19
AST 39 U/L (17-59) 05/12/25 06:19
ALT 52 U/L (0-50) H 05/12/25 06:19
Alkaline Phosphatase 99 U/L (38-126) 05/12/25 06:19
Most recent labs reviewed.
Micro Results:
05/11/25 08:21 Blood Culture - Preliminary
Blood/Venous No Growth in 24 hours- Final report to follow
05/08/25 16:59 Blood Culture - Preliminary
Blood/Venous No Growth in 72 hours- Final report to follow
05/08/25 16:24 Blood Culture - Preliminary
Blood/Venous No Growth in 72 hours- Final report to follow
05/08/25 16:29 Urine Culture - Final
Urine NO GROWTH
05/08/25 19:54 Influenza Types A & B (NISHA) - Final
Nasal Swab Negative for Influenza A & B, NAAT
Negative results must be combined with clinical observations
and patient history.
Nucleic Acid Amplification test (NAAT)performed on the
[employer] platform.
Imaging:
05/08/2025 CXR (2 view): no convincing focal infiltrates. No significant pleural effusion. No visualized pneumothorax. Please see full dictation for additional detail. Film personally viewed.
--- NOTE | 2025-05-12 12:29 | PN.CDI ---
Addendum entered and electronically signed by Sami Gallardo MD 05/12/25 12:59:
MDS
Original Note:
CDI
- -
CDI:
Physician Documentation Request
Admit Date: 05/08/25 20:44
Dear Doctor Sami,
Patient present for work up to ED from Heme/Oncology reporting 'he has been weak, leg feel heavy, intense deep aching pain in both legs and arms and decreased appetite' as well as fevers.
Hospitalist progress notes state 'acute febrile neutropenic fevers likely related to leukemia'
Oncology note states 'fevers are most likely related to MDS; commonly seen w/ TP53 loss'
Please clarify the diagnosis associated with fevers:
MDS
Leukemia (please specify acuity and type if known)
Other
Use of terms such as suspected, likely, concern for, or probable (associated with a specific diagnosis that is being evaluated, monitored, or treated as if it exists) are acceptable and can be coded in the inpatient setting, when documented at the
time of discharge.
Thank you,
Sinai Alvarado RN, BSN
CDI Specialist
tiger text
Please use your independent medical judgment in providing your response.
--- NOTE | 2025-05-12 12:44 | W.PN.ONC2 ---
Today's Communication / Plan
-
continue azacitidine 7 day course
transfuse Hgb <7
transfuse platlets <20 with NF
CMV negative products
daily CBC, BMP, TLS labs
Updates provided to at bedside and daughter via phone
Impression
Impression
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
fevers, neutropenia -Bcx NTD, Ucx negative, influenza negative, CXR no evidence PNA
pancytopenia
Plan
Plan
fevers are most likely related to MDS; commonly seen w/ TP53 loss
empiric abx and infection w/u underway, though suspicion is low
neutropenic precautions
Dr. Moses discussed with leukemia specialist at [facility] 05/08, who recommended treatment w/ azacitidine. Today is Day 4 of 7
Can transition to outpatient dosing in our [place] office when able, insurance auth process underway
low risk for TLS w/ only 10-15% blasts -normal LDH/uric acid -continue to monitor daily
zofran premeds and prn
bowel regimen
pain management
Subjective/Objective
Subjective
Tmax 101.4F, no hypoxia or hypotension
continued ankle pain when standing to long
using tylenol and oxy ir for pain
using Miralax for constipation
Vital Signs:
Vital Signs
Temp Pulse Resp BP Pulse Ox
98.6 F 90 19 106/65 96
05/12/25 07:00 05/12/25 07:00 05/12/25 07:00 05/12/25 07:00 05/12/25 07:00
Lab Results:
Laboratory Data
WBC 2.3 10^3/uL (4.8-10.8) L* 05/12/25 06:19
Hgb 7.2 g/dL (13.0-18.0) L 05/12/25 06:19
Plt Count 43 10^3/uL (130-400) L 05/12/25 06:19
eGFR > 60.00 05/12/25 06:19
Physical Exam
HEENT: Moist Mucous Membranes; No Jaundice
Pulmonary: Other (unlabored)
GI: Soft
Extremities: Pulses Present
Neuro: Non Focal
--- NOTE | 2025-05-12 13:28 | CM ---
Spoke with patient and in room,Offered VN they declined need.
will drive him home .
Currently on Chemo and IV antibiotic therapy.
PLan Home no needs
[2025-05-12] MEDS: COMPAZINE 10 MG IV (13:38)
[2025-05-12] MEDS: VIDAZA 3.164 MG SC ×2 (14:21→14:22)
--- NOTE | 2025-05-12 14:53 | PTCARENOTE ---
Clarified with pharmacist covering [facility] (Aura Smith) and Juan Sawyer that zofran was not ordered prior to vidaza administration. Aura spoke to Jennie Vargas and she clarified that zofran did not have to be given. Vidaza given per order. Bruising and
erythema noted on abd.
[2025-05-12 15:00] VITALS: BP 109/71
[2025-05-12] MEDS: DULCOLAX 10 MG PO (17:43)
[2025-05-12] MEDS: TUMS CHEWABLE TABLET 200 MG PO (22:58)
[2025-05-12 23:04] VITALS: BP 117/78
[2025-05-13] MEDS: TYLENOL 1000 MG PO ×4 (02:06→23:35)
[2025-05-13] MEDS: MAXIPIME 2000 MG IV ×3 (02:08→17:48)
[2025-05-13] MEDS: STERILE WATER FOR INJECTION 10 ML IV ×3 (02:09→17:48)
[2025-05-13 06:50] LABS: Hematocrit 19.0 % (39.0-52.0); Hemoglobin 6.6 g/dL (13.0-18.0); Mean Corp Hgb Conc. 34.7 g/dL (33.0-37.0); Mean Corpuscular Volume 97.4 fL (80.0-94.0); Platelet Count 43 10^3/uL (130-400); Red Cell Dist. Width 14.4 % (11.5-14.5)
[2025-05-13 07:27] LABS: ALT (SGPT) 67 U/L (0-50); AST (SGOT) 43 U/L (17-59); Albumin 3.2 g/dl (3.5-5.0); Alkaline Phosphatase 99 U/L (38-126); Blood Urea Nitrogen 17 mg/dl (9-20); Calcium 8.8 mg/dl (8.4-10.2); Carbon Dioxide 33 mmol/L (22-30); Chloride 101 mmol/L (98-107); Estimated Creatinine Clearance 108 ml/min; Glucose 102 mg/dl (70-99); LDH 238 U/L (120-246); Magnesium 2.3 mg/dl (1.6-2.3); Potassium 4.6 mmol/L (3.5-5.1); Sodium 135 mmol/L (135-145); Total Protein 6.0 g/dl (6.3-8.2); Uric Acid 3.5 mg/dl (3.5-8.5); eGFR > 60.00
[2025-05-13 08:02] VITALS: BP 124/69
[2025-05-13] MEDS: MIRALAX 17 GRAMS PO (08:49)
[2025-05-13] MEDS: THERAGRAN 1 TABLET PO (08:49)
[2025-05-13] MEDS: SENOKOT-S 1 TABLET PO (08:49)
--- NOTE | 2025-05-13 10:59 | W.PN.HOSP.TC ---
Today's Communication/Plan
-
One unit of blood
Assessment / Plan
Assessment / Plan
Physical Exam
General: Well Developed, Well Nourished and No Apparent Distress
HEENT: Normocephalic, Moist mucous membranes and Atraumatic
Respiratory: Clear
Cardiac: S1/S2 and Regular Rhythm; No Murmur or Rub
GI: Soft, Non Tender, Non Distended and Normal Bowel Sounds;
Rectal: no rectal bleeding
Musculoskeletal: No Clubbing, No Cyanosis and Edema
Skin: No Rash
Neuro: Nonfocal/grossly intact
Psych: calm
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 Workup in the ED does not show convincing
source of infection. Given a minimal separate status and transfusion dependent and patient will be initiated on azacitidine by oncology tomorrow.
PLAN:
# Acute febrile neutropenic fevers
Likely related to leukemia.
treat with Tylenol
-Urine and blood cultures are NGTD, reculture blood 05/11 for high temperature.
-Negative COVID, influenza
No evidence of an intra-abdominal process/ respiratory symptoms.
c/w ID & oncology, no need for CT studies with absence of localized symptoms, likely fever induced by ongoing BM disease.
-continue with IV cefepime
Appreciate ID & oncology help.
#Pancytopenia -transfusion dependent
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
-Type and screen, consented,
-No evidence of bleeding, Daily H&H, transfuse for hemoglobin of less than 7. HGB 6.6, d/w oncology, give one unit 05/13
-Platelet count 50, no evidence of mucosal bleeding, transfuse for platelet count less than 10 or if signs of mucosal bleeding
Started on SQ Azacitidine day #5, reached out to pharmacy/ oncolgy service to make sure treatment is continued. Pre-medicate with Compazine IV
Primary oncologist Dr Moses, appreciate help
# cancer bone pain
will c/w Tylenol
Patient reported Dilaudid helping but does not last long. We cannot do Vicodin/Percocet to avoid high dose of acetaminophen
Discussed with patient and , will try oxycodone. Keep PRN IV Dilaudid
# Constipation
Good BM 05/11
chemo has significant side effects with GI ( nausea/ constipation) and aches/ chest pain
c/w bowel regimen
c/w MiraLAX and Qpm Dulcolax.
Asthma - No evidence of acute process. Dulera has been held
- continue prn albuterol
DVT prophylaxis�heparin sq q 12 for now
CODE STATUS�full code
Total time spent to see the patient, examine the patient, review data and lab result, discuss treatment plan with patient, nursing staff around 55 minutes
Anticipated Discharge: > 48 hours
Subjective/Interval History
-
Date of Service: May 13, 2025
No chest pain
No abd pain
No headache
Objective Data
-
Labs:
Laboratory Results
05/13/25
06:06
WBC 2.1 L*
Hgb 6.6 L*
Hct 19.0 L*
Plt Count 43 L
Sodium 135
Potassium 4.6
Chloride 101
Carbon Dioxide 33 H
BUN 17
Creatinine 0.7
Glucose 102 H
Calcium 8.8
Total Bilirubin 0.7
AST 43
ALT 67 H
Alkaline Phosphatase 99
Vital Signs:
Vital Signs
Temp Pulse Resp BP Pulse Ox
98.5 F 89 16 124/69 97
05/13/25 08:02 05/13/25 08:02 05/13/25 08:02 05/13/25 08:02 05/13/25 08:02
I&O
05/12/25 05/13/25 05/14/25
06:59 06:59 06:59
Intake Total 570 / 570 1140 / 1140
Balance 570 / 570 1140 / 1140
[2025-05-13 13:00] VITALS: BP 112/71
[2025-05-13 13:20] VITALS: BP 120/78
[2025-05-13] MEDS: COMPAZINE 10 MG IV (13:46)
[2025-05-13] MEDS: VIDAZA 3.164 MG SC ×2 (14:40→14:42)
[2025-05-13 14:56] LABS: Platelets Checked Yes
[2025-05-13 14:59] LABS: Normal RBC Morphology Yes
[2025-05-13 15:05] LABS: Total Cells Counted 100
[2025-05-13 15:11] LABS: Absolute Neutrophils -Man Diff 0.1 10^3/uL (1.4-6.5)
[2025-05-13 15:31] VITALS: BP 121/69
[2025-05-13 16:18] VITALS: BP 113/72
[2025-05-13] MEDS: DULCOLAX 10 MG PO (17:48)
[2025-05-13] MEDS: TUMS CHEWABLE TABLET 200 MG PO (20:06)
[2025-05-13 23:31] VITALS: BP 115/61
[2025-05-14] MEDS: MAXIPIME 2000 MG IV ×3 (02:03→17:19)
[2025-05-14] MEDS: STERILE WATER FOR INJECTION 10 ML IV ×3 (02:03→17:19)
--- NOTE | 2025-05-14 06:24 | W.PN.ONC2 ---
Today's Communication / Plan
-
Proceed with cycle #6 inpatient Vidaza with continued supportive care.
Probable discharge tomorrow after he completes his first cycle of therapy.
Await follow-up CBC posttransfusion.
Impression
Impression
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
fevers, neutropenia -Bcx NTD, Ucx negative, influenza negative, CXR no evidence PNA
pancytopenia
Plan
Plan
fevers are most likely related to MDS; commonly seen w/ TP53 loss
Dr. Moses discussed with leukemia specialist at [facility] 05/08, who recommended treatment w/ azacitidine. Today is Day 6 of 7
pain management with Tylenol
Subjective/Objective
Chief Complaint
[facility]
Subjective
Pains in legs and arms relieved with Tylenol. Oxycodone caused headache. After Tylenol, he typically gets sweats. Today is his 6th of 7 treatments for Vidaza. Transfuse 1 unit PRBCs yesterday.
Vital Signs:
Vital Signs
Temp Pulse Resp BP Pulse Ox
98.7 F 89 18 115/61 95
05/13/25 23:31 05/13/25 23:31 05/13/25 23:31 05/13/25 23:31 05/13/25 23:31
Lab Results:
Laboratory Data
WBC 2.1 10^3/uL (4.8-10.8) L* 05/13/25 06:06
Hgb 6.6 g/dL (13.0-18.0) L* 05/13/25 06:06
Plt Count 43 10^3/uL (130-400) L 05/13/25 06:06
eGFR > 60.00 05/13/25 06:06
Physical Exam
HEENT: No Jaundice
Cardiology: S1 and S2
Pulmonary: Clear
GI: Soft
[2025-05-14 07:00] VITALS: BP 115/73
[2025-05-14] MEDS: TYLENOL 1000 MG PO ×3 (07:22→21:28)
[2025-05-14] MEDS: THERAGRAN 1 TABLET PO (07:58)
[2025-05-14] MEDS: MIRALAX 17 GRAMS PO (07:58)
--- NOTE | 2025-05-14 09:07 | W.PN.HOSP.TC ---
Today's Communication/Plan
-
Await CBC today
6th dose of chemo today
Assessment / Plan
Assessment / Plan
Physical Exam
General: Well Developed, Well Nourished and No Apparent Distress
HEENT: Normocephalic, Moist mucous membranes and Atraumatic
Respiratory: Clear
Cardiac: S1/S2 and Regular Rhythm; No Murmur or Rub
GI: Soft, Non Tender, Non Distended and Normal Bowel Sounds;
Rectal: no rectal bleeding
Musculoskeletal: No Clubbing, No Cyanosis and Edema
Skin: No Rash
Neuro: Nonfocal/grossly intact
Psych: calm
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 Workup in the ED does not show convincing
source of infection. Given a minimal separate status and transfusion dependent and patient will be initiated on azacitidine by oncology tomorrow.
PLAN:
# Acute febrile neutropenic fevers
Likely related to leukemia.
Resolved. Pt is feeling some improvement.
PRN Tylenol
-Urine and blood cultures 05/08 are NGTD, reculture blood 05/11 NGTD
-Negative COVID, influenza
No evidence of an intra-abdominal process/ respiratory symptoms.
c/w ID & oncology, no need for CT studies with absence of localized symptoms, likely fever induced by ongoing BM disease.
-continue with IV cefepime per ID
Appreciate ID & oncology help.
#Pancytopenia -transfusion dependent
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
-Type and screen, consented,
-No evidence of bleeding, Daily H&H, transfuse for hemoglobin of less than 7. HGB 6.6, d/w oncology, given one unit 05/13
-Platelet count 40s, no evidence of mucosal bleeding, transfuse for platelet count less than 10 or if signs of mucosal bleeding
Started on SQ Azacitidine day #6. Pre-medicate with Compazine IV
Primary oncologist Dr Moses, appreciate help
# cancer bone pain
c/w Tylenol
Patient reported Dilaudid helping but does not last long. We cannot do Vicodin/Percocet to avoid high dose of acetaminophen
Discussed with patient and , PRN oxycodone. Keep PRN IV Dilaudid
# Constipation
Good BM 05/11
chemo has significant side effects with GI ( nausea/ constipation) and aches/ chest pain
c/w bowel regimen
c/w MiraLAX and Qpm Dulcolax.
Azacitidine can cause constipation.
Asthma - No evidence of acute process. Dulera has been held
- continue prn albuterol
DVT prophylaxis�heparin sq q 12 for now
CODE STATUS�full code
Total time spent to see the patient, examine the patient, review data and lab result, discuss treatment plan with patient, oncology nursing staff around 55 minutes
Anticipated Discharge: > 48 hours
Subjective/Interval History
-
Date of Service: May 14, 2025
Objective Data
-
Labs:
Laboratory Results
05/14/25
07:10
WBC Pending
Hgb Pending
Hct Pending
Plt Count Pending
Vital Signs:
Vital Signs
Temp Pulse Resp BP Pulse Ox
98.5 F 88 18 115/73 98
05/14/25 07:00 05/14/25 07:00 05/14/25 07:00 05/14/25 07:00 05/14/25 07:00
I&O
05/13/25 05/14/25 05/15/25
06:59 06:59 06:59
Intake Total 1140 / 1140 1860 / 1860
Balance 1140 / 1140 0 / 1860
--- NOTE | 2025-05-14 11:42 | W.PN.ID1 ---
Date of Service
Date of Service: May 14, 2025
Today's Communication
Continue antibiotics.
Assessment / Plan
Febrile neutropenia
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
- currently receiving chemotherapy (Vidaza)
Anemia
Thrombocytopenia
Recommendations:
ANC = 100 today
Continue with cefepime 2 gm IV q.8 hours.
Blood cultures NGTD.
Patient on chemotherapy.
Trend white count and temperature curve.
����������������������������������������������������������
Chief Complaint
-: Fever
Subjective / Review of Systems
Patient seen and examined. Reports some sweats, but overall temperature curve has improved.
Review of Systems: No Fever and No Chills
Vital Signs / Physical Exam
Vital Signs
Vital Signs
Temp Pulse Resp BP Pulse Ox
98.5 F 88 18 115/73 98
05/14/25 07:00 05/14/25 07:00 05/14/25 07:00 05/14/25 07:00 05/14/25 07:00
Physical Exam
Constitutional: No Acute Distress, Comfortable and Non-toxic
Eyes: Sclera Anicteric
Cardiovascular: S1/S2; Negative S3/S4
Pulmonary: Non Labored; Negative Wheezes or Rhonchi
Gastrointestinal: Soft, Non Tender and Non Distended
Neurological: Awake and Alert
Psychological: Calm
Objective Data
Lab Data
Lab Results
05/13/25 06:06
Estimated Creat Clear 108 ml/min 05/13/25 06:06
Total Bilirubin 0.7 mg/dl (0.2-1.3) 05/13/25 06:06
AST 43 U/L (17-59) 05/13/25 06:06
ALT 67 U/L (0-50) H 05/13/25 06:06
Alkaline Phosphatase 99 U/L (38-126) 05/13/25 06:06
Most recent labs reviewed.
Micro Results:
05/11/25 08:21 Blood Culture - Preliminary
Blood/Venous No Growth in 72 hours- Final report to follow
05/08/25 16:59 Blood Culture - Final
Blood/Venous No Growth - Final Report
05/08/25 16:24 Blood Culture - Final
Blood/Venous No Growth - Final Report
05/08/25 16:29 Urine Culture - Final
Urine NO GROWTH
05/08/25 19:54 Influenza Types A & B (NISHA) - Final
Nasal Swab Negative for Influenza A & B, NAAT
Negative results must be combined with clinical observations
and patient history.
Nucleic Acid Amplification test (NAAT)performed on the
[employer] platform.
Imaging:
05/08/2025 CXR (2 view): no convincing focal infiltrates. No significant pleural effusion. No visualized pneumothorax. Please see full dictation for additional detail. Film personally viewed.
[2025-05-14 12:19] LABS: Hematocrit 24.1 % (39.0-52.0); Hemoglobin 7.8 g/dL (13.0-18.0); Mean Corp Hgb Conc. 32.4 g/dL (33.0-37.0); Mean Corpuscular Volume 99.6 fL (80.0-94.0); Platelet Count 42 10^3/uL (130-400); Red Cell Dist. Width 15.0 % (11.5-14.5)
[2025-05-14] MEDS: COMPAZINE 10 MG IV (13:25)
[2025-05-14] MEDS: VIDAZA 3.164 MG SC ×2 (14:08→14:11)
[2025-05-14 15:00] VITALS: BP 129/73
[2025-05-14] MEDS: DULCOLAX PO (17:09)
[2025-05-14] MEDS: TUMS CHEWABLE TABLET 200 MG PO (21:31)
[2025-05-14 23:17] VITALS: BP 112/60
[2025-05-15] MEDS: MAXIPIME 2000 MG IV ×2 (02:12→10:13)
[2025-05-15] MEDS: STERILE WATER FOR INJECTION 10 ML IV ×2 (02:12→10:14)
[2025-05-15] MEDS: TYLENOL 1000 MG PO (06:31)
[2025-05-15 07:00] VITALS: BP 106/62
[2025-05-15 07:21] LABS: ALT (SGPT) 58 U/L (0-50); AST (SGOT) 30 U/L (17-59); Albumin 3.4 g/dl (3.5-5.0); Alkaline Phosphatase 94 U/L (38-126); Blood Urea Nitrogen 16 mg/dl (9-20); Calcium 9.2 mg/dl (8.4-10.2); Carbon Dioxide 31 mmol/L (22-30); Chloride 102 mmol/L (98-107); Estimated Creatinine Clearance 108 ml/min; Glucose 103 mg/dl (70-99); Magnesium 2.3 mg/dl (1.6-2.3); Potassium 4.5 mmol/L (3.5-5.1); Sodium 136 mmol/L (135-145); Total Protein 6.1 g/dl (6.3-8.2); eGFR > 60.00
[2025-05-15 07:31] LABS: Hematocrit 22.6 % (39.0-52.0); Hemoglobin 7.6 g/dL (13.0-18.0); Mean Corp Hgb Conc. 33.6 g/dL (33.0-37.0); Mean Corpuscular Volume 98.3 fL (80.0-94.0); Platelet Count 38 10^3/uL (130-400); Red Cell Dist. Width 14.6 % (11.5-14.5)
--- NOTE | 2025-05-15 08:34 | W.PN.ONC2 ---
Today's Communication / Plan
-
Day 7 or 7 vidaza today
neutropenic precautions
antiemetics prn
bowel regimen for constipation
CMV negtive products prn transfusions
discharge planning today
CBC Qmon/Thurs for prn transfusion support through my office will be arranged upon discharge
at bedside provided updates and questions answered
Impression
Impression
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
fevers, neutropenia -Bcx NTD, Ucx negative, influenza negative, CXR no evidence PNA
pancytopenia
Plan
Plan
fevers are most likely related to MDS; commonly seen w/ TP53 loss -afebrile 05/11 8a -cultures negative to date
Dr. Moses discussed with leukemia specialist at [facility] 05/08, who recommended treatment w/ azacitidine. Today is Day 7 of
pain management with Tylenol
Subjective/Objective
Subjective
afebrile, no hypoxia or hypotension
Vital Signs:
Vital Signs
Temp Pulse Resp BP Pulse Ox
98.3 F 89 17 106/62 95
05/15/25 07:00 05/15/25 07:00 05/15/25 07:00 05/15/25 07:00 05/15/25 07:00
Lab Results:
Laboratory Data
WBC 1.7 10^3/uL (4.8-10.8) L* 05/15/25 06:18
Hgb 7.6 g/dL (13.0-18.0) L 05/15/25 06:18
Plt Count 38 10^3/uL (130-400) L 05/15/25 06:18
eGFR > 60.00 05/15/25 06:18
Physical Exam
HEENT: No Jaundice
Pulmonary: Other (unlabored)
GI: Soft
Extremities: Pulses Present
Neuro: Non Focal
Orders
Orders
Orders From Last 24 Hours
05/14/25 14:00
Azacitidine [Vidaza] 79.1 mg Syringe [Syringe Non-Pump] 0 ml SC Q5M
05/15/25 14:00
Azacitidine [Vidaza] 79.1 mg Syringe [Syringe Non-Pump] 0 ml SC Q5M
[2025-05-15] MEDS: THERAGRAN 1 TABLET PO (08:53)
[2025-05-15] MEDS: MIRALAX PO (08:54)
--- NOTE | 2025-05-15 10:57 | W.PN.ID1 ---
Date of Service
Date of Service: May 15, 2025
Today's Communication
Continue antibiotics.
Assessment / Plan
Febrile neutropenia
- Pt afebrile x >72 hours.
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
- currently receiving chemotherapy (Vidaza)
Anemia
Thrombocytopenia
Recommendations:
ANC pending today
Currently cefepime (d#8)
Blood cultures NGTD.
Patient on chemotherapy.
Will discuss with HemeOnc possible transition to oral cipro/levo and duration.
Continue to trend white count and temperature curve.
����������������������������������������������������������
Chief Complaint
-: Fever
Subjective / Review of Systems
Patient seen and examined. Overall feels well. Denies fever, although notes some occasional sweats. States prior extremity pain has resolved.
Vital Signs / Physical Exam
Vital Signs
Vital Signs
Temp Pulse Resp BP Pulse Ox
98.3 F 89 17 106/62 95
05/15/25 07:00 05/15/25 07:00 05/15/25 07:00 05/15/25 07:00 05/15/25 07:00
Physical Exam
Constitutional: No Acute Distress, Comfortable and Non-toxic
Eyes: Sclera Anicteric
Cardiovascular: S1/S2; Negative S3/S4
Pulmonary: Non Labored; Negative Wheezes or Rhonchi
Gastrointestinal: Soft, Non Tender and Non Distended
Neurological: Awake and Alert
Psychological: Calm
Objective Data
Lab Data
Lab Results
05/15/25 06:18
05/15/25 06:18
Estimated Creat Clear 108 ml/min 05/15/25 06:18
Total Bilirubin 0.7 mg/dl (0.2-1.3) 05/15/25 06:18
AST 30 U/L (17-59) 05/15/25 06:18
ALT 58 U/L (0-50) H 05/15/25 06:18
Alkaline Phosphatase 94 U/L (38-126) 05/15/25 06:18
Most recent labs reviewed.
Micro Results:
05/11/25 08:21 Blood Culture - Preliminary
Blood/Venous No Growth in 4 days- Final report to follow
05/08/25 16:59 Blood Culture - Final
Blood/Venous No Growth - Final Report
05/08/25 16:24 Blood Culture - Final
Blood/Venous No Growth - Final Report
05/08/25 16:29 Urine Culture - Final
Urine NO GROWTH
05/08/25 19:54 Influenza Types A & B (NISHA) - Final
Nasal Swab Negative for Influenza A & B, NAAT
Negative results must be combined with clinical observations
and patient history.
Nucleic Acid Amplification test (NAAT)performed on the
[email or web address] platform.
Imaging:
05/08/2025 CXR (2 view): no convincing focal infiltrates. No significant pleural effusion. No visualized pneumothorax. Please see full dictation for additional detail. Film personally viewed.
--- NOTE | 2025-05-15 12:20 | CM ---
Addendum entered by Anna Marie Araiza 05/15/25 12:22:
[facility] fax #: [phone]
Original Note:
Patient seen at bedside
CM consult completed-VN
options reviewed-wants [facility]
spoke with Yoselyn at [facility]
referral placed
IMM explained & signed. In chart
PLAN: Home with [facility]
to transport
[2025-05-15 12:41] LABS: Absolute Neutrophils -Man Diff 0.3 10^3/uL (1.4-6.5); Anisocytosis Slight; Hypochromasia Slight; Normal RBC Morphology No; Platelets Checked Yes; Polychromasia Slight; Total Cells Counted 100
[2025-05-15] MEDS: COMPAZINE 10 MG IV (13:32)
[2025-05-15] MEDS: VIDAZA 3.164 MG SC ×2 (14:20→14:22)
[2025-05-15 15:00] VITALS: BP 115/58
--- NOTE | 2025-05-15 15:08 | W.PN.HOSP.TC ---
Addendum entered and electronically signed by Anish Parker MD 05/16/25 15:37:
[id number]
Original Note:
Today's Communication/Plan
-
Levofloxacin 500qd x 7 days
F/u Onc outpt
F/u labs outpatient
Assessment / Plan
Assessment / Plan
Physical Exam
General: Well Developed, Well Nourished and No Apparent Distress
HEENT: Normocephalic, Moist mucous membranes and Atraumatic
Respiratory: Clear
Cardiac: S1/S2 and Regular Rhythm; No Murmur or Rub
GI: Soft, Non Tender, Non Distended and Normal Bowel Sounds;
Rectal: no rectal bleeding
Musculoskeletal: No Clubbing, No Cyanosis and Edema
Skin: No Rash
Neuro: Nonfocal/grossly intact
Psych: calm
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 Workup in the ED does not show convincing
source of infection. Given a minimal separate status and transfusion dependent and patient will be initiated on azacitidine by oncology tomorrow.
PLAN:
# Acute febrile neutropenic fevers
Likely related to leukemia.
Likely related to los sin TP53 in MDS causign fevers. s/p Vidaza with improvement
-Urine and blood cultures 05/08 are NGTD, reculture blood 05/11 NGTD
-Negative COVID, influenza
No evidence of an intra-abdominal process/ respiratory symptoms.
c/w ID & oncology, no need for CT studies with absence of localized symptoms, likely fever induced by ongoing BM disease.
IV cefepime per ID - switch to levofloxacin 500mg qd for 7 days;
Appreciate ID & oncology help.
#Pancytopenia -transfusion dependent
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
-Type and screen, consented,
-No evidence of bleeding, Daily H&H, transfuse for hemoglobin of less than 7. HGB 6.6, d/w oncology, given one unit 05/13
-Platelet count 40s, no evidence of mucosal bleeding, transfuse for platelet count less than 10 or if signs of mucosal bleeding
Started on SQ Azacitidine day #7. Pre-medicate with Compazine IV
Primary oncologist Dr Moses, appreciate help
f/u outpt
# cancer bone pain
c/w Tylenol
Patient reported Dilaudid helping but does not last long. We cannot do Vicodin/Percocet to avoid high dose of acetaminophen
Discussed with patient and , PRN oxycodone. Keep PRN IV Dilaudid
# Constipation
Good BM 05/11
chemo has significant side effects with GI ( nausea/ constipation) and aches/ chest pain
c/w bowel regimen
c/w MiraLAX and Qpm Dulcolax.
Azacitidine can cause constipation.
Asthma - No evidence of acute process. Dulera has been held
- continue prn albuterol
DVT prophylaxis�heparin sq q 12 for now
CODE STATUS�full code
More than 30 minutes spent in discharge including
Final examination of the patient
Summarizing hospital stay
Instructions for continuing care to all relevant caregivers
Preparation of discharge records, prescriptions, and referral forms
Total time spent (in minutes): 36
Anticipated Discharge: Today
Subjective/Interval History
-
Date of Service: May 15, 2025
no acute events overnight
Objective Data
-
Labs:
Laboratory Results
05/15/25
06:18
WBC 1.7 L*
Hgb 7.6 L
Hct 22.6 L
Plt Count 38 L
Sodium 136
Potassium 4.5
Chloride 102
Carbon Dioxide 31 H
BUN 16
Creatinine 0.7
Glucose 103 H
Calcium 9.2
Total Bilirubin 0.7
AST 30
ALT 58 H
Alkaline Phosphatase 94
Vital Signs:
Vital Signs
Temp Pulse Resp BP Pulse Ox
98.3 F 89 17 106/62 95
05/15/25 07:00 05/15/25 07:00 05/15/25 07:00 05/15/25 07:00 05/15/25 07:00
I&O
05/14/25 05/15/25 05/16/25
06:59 06:59 06:59
Intake Total 1859 / 0 1440 / 1440
Balance 1859 1440 / 1440
Review of Systems
-
History Source: Patient
All other systems: Not reviewed unless documented
Data Reviewed
-
Diagnostic Radiology: Report Reviewed by me
Ultrasound: Report Reviewed by me
Labs: Labs Reviewed by me
--- NOTE | 2025-05-15 15:18 | W.DS.TRANS ---
DC Summary - Exterminator Helper
-
Discharge Instructions:
Discharge Diagnosis/Procedures Febrile neutropenia
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
Diet Low Cholesterol,Low Fat
Activity As tolerated
Driving Restrictions Not until seen by your Dr
Blood Work cbc and cmp in 1 week
Instructions:
Stand-Alone Forms:
Changes to Home Medications: Yes
Discharge Medications:
DC Medications w/original date entered in [employer]
albuterol sulfate 90 mcg/actuation aerosol inhaler 2 puff inhalation R [id number] PRN sob 05/08/25
therapeutic multivitamin 1 tab PO DAILY 05/08/25
turmeric 400 mg capsule 400 mg PO DAILY 05/08/25
levofloxacin 500 mg tablet 500 mg PO DAILY 7 days #7 tabs 05/15/25
Home Medication Changes
levofloxacin 500 mg tablet 500 mg PO DAILY 7 days #7 tabs 05/15/25
Pending Results: No
== END 2025-05-15 17:42 | disposition home health service (06) | DRG 812 ==
LOC: 3 WEST ACU 20:44
PROVIDERS: Internal Medicine; Physician Assistant; Registered Nurse; ADMITTING PHYSICIAN Internal Medicine; ATTENDING PHYSICIAN Internal Medicine; CONSULT PHYSICIAN Internal Medicine Hematology & Oncology; EMERGENCY PHYSICIAN Emergency Medicine; FAMILY PHYSICIAN Family Medicine; OTHER PHYSICIAN Internal Medicine Infectious Disease
PROC: 30233N1 Transfusion of Nonautologous Red Blood Cells into Peripheral Vein, Percutaneous Approach (ICD-10-PCS; 2025-05-13)
DX: D46.9 Myelodysplastic syndrome, unspecified (principal); D61.818 Other pancytopenia; C92.40 Acute promyelocytic leukemia, not having achieved remission; Z11.52 Encounter for screening for COVID-19; J45.909 Unspecified asthma, uncomplicated; R50.81 Fever presenting with conditions classified elsewhere; D70.9 Neutropenia, unspecified; D69.6 Thrombocytopenia, unspecified; K59.00 Constipation, unspecified; G89.3 Neoplasm related pain (acute) (chronic)
CPT/HCPCS: 71046; 80048; 80053; 81003; 81015; 83615; 83735; 84100; 84550; 85025; 85027; 86803; 86850; 86900; 86901; 86920; 86922; 87040; 87086; 87502; 87811; 93005; 93970; 96374; 99285; P9016

== ENCOUNTER 2025-05-24 07:32 | Outpatient (RCR) | payer MEDICARE, OTHER, SELFPAY ==
[2025-05-24] VITALS (9 sets, daily range): BP systolic 94–104; BP diastolic 52–60
== END 2025-05-26 23:59 | disposition home or self-care (01) ==
LOC: OID 07:32
PROVIDERS: ATTENDING PHYSICIAN Internal Medicine Hematology & Oncology; FAMILY PHYSICIAN Family Medicine
DX: D61.818 Other pancytopenia (principal); D46.22 Refractory anemia with excess of blasts 2
CPT/HCPCS: 36415; 36430; 86850; 86900; 86901; 86920; P9058; P9073

== ENCOUNTER 2025-07-11 23:44 | Inpatient (IN) | payer MEDICARE, OTHER, SELFPAY ==
[2025-07-11] VITALS (10 sets, daily range): BP systolic 112–132; BP diastolic 57–81; BMI 25.8
--- NOTE | 2025-07-11 15:35 | ED.GENMED ---
History of Present Illness
<JASMYN Montes - Last Filed: 07/14/25 08:22>
General
Chief Complaint: Fainting/Passed Out
Source: patient
Exam Limitations: none
Time Seen by Provider: 07/11/25 14:46
Nursing documentation reviewed up to this point in time: agreed with
History of Present Illness
History of Present Illness:
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 reports patient was recently hospitalized at [facility] for 2 weeks discharged yesterday. He was
sitting in recliner and passed out twice today once while seated in a seated walker. Patient does admit to feeling very nauseous prior to each episode occurring. He denies any palpitations or chest pain prior to the episodes. He denies any
associated shortness of breath recent cough fever chills.
He is on Vidaza as well as Venclexta.
reports patient has had 20 blood transfusions since being diagnosed with MDS April 26. His discharge hemoglobin from [facility] yesterday was 7.5.
He is followed by Dr. Jimena English at [facility].
Past History
<JASMYN Montes - Last Filed: 07/14/25 08:22>
Past History
ED Past Medical History: Asthma
ED Past Surgical History: Other (Mohs procedure)
Phy Exam
<JASMYN Montes - Last Filed: 07/14/25 08:22>
General Physical Exam
General Presentation: no apparent distress
General age: appears stated age
General Skin: warm and dry
General Habitus: normal
General Mental: alert
General Hydration: dry mucous membranes
Cardiovascular Exam
Cardiovascular Exam: bradycardia
Pulmonary Exam
Pulmonary Exam: no respiratory distress and other (crackles bases )
Gastrointestinal Exam
Gastrointestinal Exam: non tender and soft
Neurological Exam
Neurological Exam: alert and oriented x3
Musculoskeletal Exam
Musculoskeletal Exam: full ROM
Skin Exam
Skin Exam: normal color and warm/dry
Psychiatric Exam
Psychiatric Exam: normal mood/affect
Course
<JASMYN Montes - Last Filed: 07/14/25 08:22>
Orders/Labs/Results
Orders:
Orders
07/11/25 14:03
EKG [Electrocardiogram (*1)] Urgent
Reason for Study: Syncope
EKG- Treatment ONCE
07/11/25 14:22
Portable Chest Xray [CR Chest Portable - 1 View] Urgent
Comment:
Reason For Exam: check PICC placement
Reason Study Needs to be Portable: Unable to Transport
07/11/25 15:49
0.9% Sodium Chloride 1000 ml [Nss] 1,000 ml IV BOLUS
07/11/25 15:54
Complete Blood Count/With Diff Urgent
Comprehensive Metabolic Panel Urgent
07/11/25 15:55
Ondansetron Injectable [Zofran] 4 mg IV NOW STA
07/11/25 16:10
Add On- LAB Urgent
Tests Added?: cardiac bnp
07/11/25 16:15
BNP [NT-proBNP] Urgent
07/11/25 17:51
CT Head W/o Iv Contrast Urgent
Comment:
Reason For Exam: syncope
07/11/25 23:20
Admit/Transfer Patient As Directed
Co-Sign Provider:
Level of Care: Inpatient admission
Assign to:: Telemetry
Physician / Group: vikas
Diagnosis: vasovagal syncope
Reason for Telemetry: Arrhythmia
Date to Stop Telemetry: 07/14/25
Time to Stop Telemetry: 11:00
Reason for Hospitalization: vasovagal syncope
Expected length of stay greater than two midnights?: Yes
ELOS- Estimated Length of Stay in days: 2
I certify the patient meets the requirements for IP care: Yes
07/11/25 23:21
Code Status As Directed
Resuscitation Status: Full Code
PRN Pain Medication Management As Directed
May give lesser potent ordered pain med per pt: Yes
preference::
Protocol:: Medication orders for pain may be administered in a
manner that supports deferring to patient preference
when the pt is:
- Requesting an ordered lesser potent pain medication.
Least to most potent pain medications are defined
as: acetaminophen < NSAID < tramadol < opioids
(morphine, oxycodone, hydromorphone).
- Requesting a lesser dose of the same medication IF
ORDERED.
- Requesting a less intrusive route of administration
if both routes are prescribed by the provider (PO <
IV).
07/12/25 01:52
Albuterol [ProAIR HFA INHALER] 2 puff INH R Q6HPRN PRN sob
Prochlorperazine [Compazine] 10 mg PO Q6H PRN nausea
07/12/25 01:52
Activity As Directed
Activity Level: As Tolerated
Vital Signs As Directed
Frequency: Per unit guidelines
DX Deep Vein Thrombosis Video Routine
07/12/25 04:00
Ondansetron Orally Disint [Zofran Odt (Orally Disintegrating)] 8 mg PO Q8H PRN
07/12/25 04:28
Complete Blood Count/With Diff IN AM
Comprehensive Metabolic Panel IN AM
07/12/25 08:00
Acyclovir [Zovirax] 800 mg PO BID
LevoFLOXacin [Levaquin] 500 mg PO DAILY
Multivitamin [Theragran] 1 tablet PO DAILY
[id number] [Noxafil] 300 mg PO DAILY
venetoclax 50 mg PO DAILY
07/12/25 Dinner
Regular
At Your Request: Full Participation
07/12/25 22:00
Tamsulosin [Flomax] 0.4 mg PO HS
07/14/25 11:00
DC Protocol for Telemetry ONCE
Abnormal Lab Results
07/11/25
15:54
WBC 0.3 L* 10^3/uL
(4.8-10.8)
RBC 2.08 L 10^6/uL
(4.70-6.10)
Hgb 7.2 L g/dL
(13.0-18.0)
Hct 19.2 L* %
(39.0-52.0)
MCH 34.6 H pg
(27.0-31.0)
MCHC 37.5 H g/dL
(33.0-37.0)
Plt Count 36 L 10^3/uL
(130-400)
Absolute Neuts (auto) 0.0 L* 10^3/uL
(1.4-6.5)
Absolute Lymphs (auto) 0.3 L 10^3/uL
(1.2-3.4)
Absolute Monos (auto) 0.0 L 10^3/uL
(0.1-0.6)
Neutrophils % 3.6 L %
(42.2-75.2)
Lymphocytes % 96.4 H %
(20.5-51.1)
Monocytes % 0.0 L %
(1.7-9.3)
Sodium 134 L mmol/L
(135-145)
Creatinine 0.6 L mg/dL
(0.7-1.3)
Glucose 120 H mg/dl
(70-99)
AST 69 H U/L
(17-59)
ALT 163 H U/L
(0-50)
Alkaline Phosphatase 152 H U/L
(38-126)
Total Protein 5.8 L g/dl
(6.3-8.2)
Albumin 2.8 L g/dl
(3.5-5.0)
07/11/25 15:54
07/11/25 15:54
Vital Signs
Initial and Last Documented VS:
Initial Vital Signs
Temp Pulse Resp BP Pulse Ox
98.0 F 63 18 118/63 95
07/11/25 13:59 07/11/25 13:59 07/11/25 13:59 07/11/25 13:59 07/11/25 13:59
Last Documented Vital Signs
Temp Pulse Resp BP Pulse Ox
98.2 F 89 16 119/61 93
07/14/25 07:28 07/14/25 07:28 07/14/25 07:28 07/14/25 07:28 07/14/25 07:28
Network And Threat Support Specialist consulted with Physician
Network And Threat Support Specialist consulted with physician?: Yes
Name of Physician Consulted: Rj
<José Miguel De La Rosa MD - Last Filed: 07/11/25 23:17>
Orders/Labs/Results
Orders:
Orders
07/11/25 14:03
EKG [Electrocardiogram (*1)] Urgent
Reason for Study: Syncope
EKG- Treatment ONCE
07/11/25 14:22
Portable Chest Xray [CR Chest Portable - 1 View] Urgent
Comment:
Reason For Exam: check PICC placement
Reason Study Needs to be Portable: Unable to Transport
07/11/25 15:49
0.9% Sodium Chloride 1000 ml [Nss] 1,000 ml IV BOLUS
07/11/25 15:54
Complete Blood Count/With Diff Urgent
Comprehensive Metabolic Panel Urgent
07/11/25 15:55
Ondansetron Injectable [Zofran] 4 mg IV NOW STA
07/11/25 16:10
Add On- LAB Urgent
Tests Added?: cardiac bnp
07/11/25 16:15
BNP [NT-proBNP] Urgent
07/11/25 17:51
CT Head W/o Iv Contrast Urgent
Comment:
Reason For Exam: syncope
07/11/25 23:20
Admit/Transfer Patient As Directed
Co-Sign Provider:
Level of Care: Inpatient admission
Assign to:: Telemetry
Physician / Group: vikas
Diagnosis: vasovagal syncope
Reason for Telemetry: Arrhythmia
Date to Stop Telemetry: 07/14/25
Time to Stop Telemetry: 11:00
Reason for Hospitalization: vasovagal syncope
Expected length of stay greater than two midnights?: Yes
ELOS- Estimated Length of Stay in days: 2
I certify the patient meets the requirements for IP care: Yes
07/11/25 23:21
Code Status As Directed
Resuscitation Status: Full Code
PRN Pain Medication Management As Directed
May give lesser potent ordered pain med per pt: Yes
preference::
Protocol:: Medication orders for pain may be administered in a
manner that supports deferring to patient preference
when the pt is:
- Requesting an ordered lesser potent pain medication.
Least to most potent pain medications are defined
as: acetaminophen < NSAID < tramadol < opioids
(morphine, oxycodone, hydromorphone).
- Requesting a lesser dose of the same medication IF
ORDERED.
- Requesting a less intrusive route of administration
if both routes are prescribed by the provider (PO <
IV).
07/12/25 01:52
Albuterol [ProAIR HFA INHALER] 2 puff INH R Q6HPRN PRN sob
Prochlorperazine [Compazine] 10 mg PO Q6H PRN nausea
07/12/25 01:52
Activity As Directed
Activity Level: As Tolerated
Vital Signs As Directed
Frequency: Per unit guidelines
DX Deep Vein Thrombosis Video Routine
07/12/25 04:00
Ondansetron Orally Disint [Zofran Odt (Orally Disintegrating)] 8 mg PO Q8H PRN
07/12/25 04:28
Complete Blood Count/With Diff IN AM
Comprehensive Metabolic Panel IN AM
07/12/25 08:00
Acyclovir [Zovirax] 800 mg PO BID
LevoFLOXacin [Levaquin] 500 mg PO DAILY
Multivitamin [Theragran] 1 tablet PO DAILY
Niafesskntvt-Tdv-Jxjs [Noxafil] 300 mg PO DAILY
venetoclax 50 mg PO DAILY
07/12/25 Dinner
Regular
At Your Request: Full Participation
07/12/25 22:00
Tamsulosin [Flomax] 0.4 mg PO HS
07/14/25 11:00
DC Protocol for Telemetry ONCE
Abnormal Lab Results
07/11/25
15:54
WBC 0.3 L* 10^3/uL
(4.8-10.8)
RBC 2.08 L 10^6/uL
(4.70-6.10)
Hgb 7.2 L g/dL
(13.0-18.0)
Hct 19.2 L* %
(39.0-52.0)
MCH 34.6 H pg
(27.0-31.0)
MCHC 37.5 H g/dL
(33.0-37.0)
Plt Count 36 L 10^3/uL
(130-400)
Absolute Neuts (auto) 0.0 L* 10^3/uL
(1.4-6.5)
Absolute Lymphs (auto) 0.3 L 10^3/uL
(1.2-3.4)
Absolute Monos (auto) 0.0 L 10^3/uL
(0.1-0.6)
Neutrophils % 3.6 L %
(42.2-75.2)
Lymphocytes % 96.4 H %
(20.5-51.1)
Monocytes % 0.0 L %
(1.7-9.3)
Sodium 134 L mmol/L
(135-145)
Creatinine 0.6 L mg/dL
(0.7-1.3)
Glucose 120 H mg/dl
(70-99)
AST 69 H U/L
(17-59)
ALT 163 H U/L
(0-50)
Alkaline Phosphatase 152 H U/L
(38-126)
Total Protein 5.8 L g/dl
(6.3-8.2)
Albumin 2.8 L g/dl
(3.5-5.0)
07/11/25 15:54
07/11/25 15:54
Vital Signs
Initial and Last Documented VS:
Initial Vital Signs
Temp Pulse Resp BP Pulse Ox
98.0 F 63 18 118/63 95
07/11/25 13:59 07/11/25 13:59 07/11/25 13:59 07/11/25 13:59 07/11/25 13:59
Last Documented Vital Signs
Temp Pulse Resp BP Pulse Ox
98.2 F 89 16 119/61 93
07/14/25 07:28 07/14/25 07:28 07/14/25 07:28 07/14/25 07:28 07/14/25 07:28
<JASMYN Montes - Last Filed: 07/14/25 08:22>
MDM/Problems Addressed
MDM/Problems Addressed:
As documented patient is a 69-year-old male with MDS recently discharged after a 2-week admission at [facility] presents for syncope. Patient had 3 episodes of syncope today while in the inclined recliner position. He does report feeling nauseous prior
to episodes. His chemo medicine apparently makes him nauseous did not give Zofran prior to meds. He presents here awake alert no acute distress mildly nauseous. He is nontachycardic. No acute findings on EKG. X-ray of his chest was done to
confirm PICC line placement and chest x-ray does show diffuse bilateral interstitial and airspace opacities may reflecting edema versus pneumonitis or pneumonia. Patient denies any recent cough chest pain fever chills or difficulty breathing.
Will add on a BNP.
patient was initially given fluids upon arrival will hold fluids
Patient is pancytopenic with a white count of 0.3 hemoglobin 7.2 hematocrit 19.2 platelets 36,000. Absolute neutrophils are 0.0. He has increased LFTs with an elevated AST ALT and alk phosphatase normal bilirubin.
CAre of pt transferred to DR De La Rosa.
Chronic conditions affecting care:
MDS
<JASMYN Montes - Last Filed: 07/14/25 08:22>
*Radiology
Radiology exam reviewed: radiology read reviewed
*Pulse Oximetry
SaO2: 97
Oxygen Mode of Delivery: Room air
Patient hypoxic: no
*Critical Care Note
Total Time (30-74mins, 75-104mins- exclusive of procedures): Not Applicable
ED Attending Note
<JASMYN Montes - Last Filed: 07/14/25 08:22>
-
Portions of this chart may have been created with voice recognition software.� Occasional wrong word or��sound alike� substitutions may have occurred due to the inherent limitations of voice recognition software.
<José Miguel De La Rosa MD - Last Filed: 07/11/25 23:17>
ED Attending Note
Patient seen and examined by attending physician: Yes
ED Attending Note:
Patient with history MDS, discharged from [facility] yesterday after receiving multiple blood transfusions, presents to ED secondary to 3 episodes of syncope, preceded by nausea sensation while in seated position. Denies
preceding dizziness or headache. Denies nausea or vomiting. Denies chest palpitations. Denies chest pain or shortness of breath. At the time of evaluation ED, patient is reporting generalized weakness.
Physical Exam
General: mild distress, not acutely ill. afebrile. weak appearing
Head: nc/at. eomi
Neck: supple. no meningeal signs.
Heart: s1/s2 regular rate and rhythm
Lungs: no acute respiratory distress. clear bilaterally
Abdomen: normal bowel sounds. not tender.
Neuro: alert and oriented x 3. no focal neurological deficits
Skin: no rash
Psychiatric: well kept. interactive and cooperative
Extremities: no edema. no calf tenderness.
Pancytopenia noted on blood work, without fever.
Discussed with oncology service at [facility] () who agreed to accept transfer. Requests CT head
CT head: no acute findings
Transfer consent on the chart
Unfortunately, as there is no in-patient bed currently available at [facility], patient will be admitted at Health system.
Discharge Plan
Departure
Patient Disposition: Admit
Date of Disposition: 07/11/25
Time of Disposition: 18:09
Admit to: Telemetry
Presentation/result/management discussed w/ accepting MD/DO: Hospitalist
Discharge Problem:
Pancytopenia, MDS (myelodysplastic syndrome), Syncope
Interventions
Interventions:
*General Assessment Last Done: 07/11/25 14:02
*Neglect/Abuse Screening Last Done: 07/11/25 14:02
*ED COVID-19 Vaccine History Last Done: 07/11/25 14:02
*ED Influenza Vaccine History Last Done: 07/11/25 14:02
[facility] Fall Risk Assessment Tool Last Done: 07/11/25 19:11
*Risk Screen - Suicide (C-SSRS) Last Done: 07/11/25 14:02
*Nursing Disposition Last Done: 07/12/25 17:24
ED- Cardiac Assessment Last Done: 07/11/25 14:24
ED- Neurological Assessment Last Done: 07/11/25 14:24
Discharge Date and Time
Discharge Date/Time: 07/12/25 17:24
[2025-07-11] MEDS: NSS 1000 IV (15:59)
[2025-07-11] MEDS: ZOFRAN 4 MG IV (15:59)
[2025-07-11 16:28] LABS: ALT (SGPT) 163 U/L (0-50); AST (SGOT) 69 U/L (17-59); Albumin 2.8 g/dl (3.5-5.0); Alkaline Phosphatase 152 U/L (38-126); Blood Urea Nitrogen 16 mg/dl (9-20); Calcium 8.4 mg/dl (8.4-10.2); Carbon Dioxide 28 mmol/L (22-30); Chloride 103 mmol/L (98-107); Estimated Creatinine Clearance > 125 ml/min; Glucose 120 mg/dl (70-99); Potassium 4.0 mmol/L (3.5-5.1); Sodium 134 mmol/L (135-145); Total Protein 5.8 g/dl (6.3-8.2); eGFR > 60.00
[2025-07-11 16:31] LABS: Hematocrit 19.2 % (39.0-52.0); Hemoglobin 7.2 g/dL (13.0-18.0); Mean Corp Hgb Conc. 37.5 g/dL (33.0-37.0); Mean Corpuscular Volume 92.3 fL (80.0-94.0); Nucleated Red Blood Cells % 0 % (-); Platelet Count 36 10^3/uL (130-400)
[2025-07-11 16:32] LABS: Normal RBC Morphology No
[2025-07-11 16:36] LABS: Microcytosis 2+
[2025-07-11 16:44] LABS: Hypochromasia 1+; Spherocytes 1+
--- NOTE | 2025-07-11 23:24 | HPS.HSE ---
Family Physician
-
Family Physician: Lucille Anand
Chief Complaint
-
passing out
History of Present Illness
69-year-old male past medical history of high risk myelodysplastic syndrome progressed to AML, anemia, thrombocytopenia, asthma, BPH, presenting for syncope. Patient was recently hospitalized at [facility] for 2 weeks and discharged yesterday.
He was sitting in recliner and passed out twice today once while seated in a seated walker. He feels nauseous prior to each episode occurring. He denies any palpitations or chest pain preceding. He denies any shortness of breath, cough, fevers or
chills. He previously had syncopal episode in the past secondary to pain from receiving a transfusion.
Since being diagnosed with MDS this April he has received 20 blood transfusions. He follows Dr. Jimena English at [facility].
He was recently admitted at [facility] for the past 2 weeks for MDS. He did not have any infection while there. He received a blood transfusion and platelet transfusion the day of discharge yesterday. Hemoglobin 7.5 on discharge.
Looking at [facility] record he was originally at [facility] with fever with neutropenia and thrombocytopenia and chest x-ray showing mild diffuse ground glass opacities. Blood and urine cultures negative. He was started on broad-spectrum
antibiotics requiring 3 units of blood [facility]. He was transferred to [facility] for consideration of bone marrow biopsy for concern for leukopenic transformation. He was started on induction therapy with azacitidine and venetoclax on 06/28.
There was concern for possible fungal etiology so therefore posaconazole was started empirically. Transaminitis was mild and felt to be secondary to posaconazole. Histoplasma negative.
He drinks alcohol occasionally. Denies smoking.
Medical History
Past Medical History
Past Medical History: Reports Other (high risk myelodysplastic syndrome progressed to AML, anemia, thrombocytopenia, asthma, BPH)
Past Surgical History: Reports None
Social History
Tobacco: Non-smoker
Alcohol: Occasional
Drug: None
Family History
Family History: Not pertinent
Allergies / Home Medications
Allergies reflects when Allergies were last updated in [facility].
Home Medications with original date entered in [facility]
Allergy/Medication List:
Allergies
Allergy/AdvReac Type Severity Reaction Status Date / Time
shellfish derived Allergy Anaphylaxis Verified 07/11/25 14:00
Home Medications
albuterol sulfate 90 mcg/actuation aerosol inhaler 2 puff inhalation R Q6HPRN PRN sob 05/08/25
therapeutic multivitamin 1 tab PO DAILY 05/08/25
turmeric 400 mg capsule 400 mg PO DAILY 05/08/25
coenzyme Q10 30 mg capsule 30 mg PO DAILY 05/24/25
epinephrine 0.1 mg/0.1 mL injection, auto-injector 1 ml SC DAILY PRN allergic reaction 05/24/25
acyclovir 800 mg tablet 800 mg PO BID 07/11/25
levofloxacin 500 mg tablet 500 mg PO DAILY 07/11/25
ondansetron 8 mg disintegrating tablet 8 mg PO Q8H PRN nausea 07/11/25
posaconazole 100 mg tablet,delayed release 300 mg PO DAILY 07/11/25
prochlorperazine maleate 10 mg tablet (Compazine) 10 mg PO Q6H PRN nausea 07/11/25
tamsulosin 0.4 mg capsule 0.4 mg PO HS 07/11/25
venetoclax 50 mg tablet 50 mg PO DAILY 07/11/25
Review of Systems
-
History Source: Patient
A 12 point ROS was completed and negative except as noted: Yes
Constitutional: Reports No Symptoms
EENT: Reports No Symptoms
Respiratory: Reports No Symptoms
Cardiac: Reports No Symptoms
Abdomen/GI: Reports No Symptoms
: Reports No Symptoms
Musculoskeletal: Reports No Symptoms
Skin: Reports No Symptoms
Neurological: Reports No Symptoms
Endocrine: Reports No Symptoms
Hematologic/Lymphatic: Reports No Symptoms
Psych: Reports No Symptoms
Physical Exam
Vital Signs
Vital Signs
Temp Pulse Resp BP Pulse Ox
98.0 F 79 21 132/66 98
07/11/25 13:59 07/11/25 23:00 07/11/25 23:00 07/11/25 23:00 07/11/25 23:00
Physical Exam
General: Well Developed, Well Nourished and No Apparent Distress
HEENT: NormoCephalic, Moist mucous membranes and Atraumatic
Respiratory: Clear
Cardiac: S1/S2 and Regular Rhythm; No Murmur or Rub
GI: Soft, Non Tender, Non Distended and Normal Bowel Sounds; No Organomegaly
Rectal: Deferred by Provider
Musculoskeletal: No Clubbing, No Cyanosis and No Edema
Skin: No Rash
Neuro: Nonfocal/grossly intact
Laboratory Results
-
07/11/25 15:54
07/11/25 15:54
Laboratory Results
Total Bilirubin 0.7 mg/dl (0.2-1.3) 07/11/25 15:54
AST 69 U/L (17-59) H 07/11/25 15:54
ALT 163 U/L (0-50) H 07/11/25 15:54
Alkaline Phosphatase 152 U/L (38-126) H 07/11/25 15:54
Data Reviewed
-
Lab Data: Labs Reviewed by me
Old Records: Reviewed
Impression/Plan
-
IMPRESSION:
PLAN:
# Syncopal episodes likely vasovagal
-EKG shows sinus bradycardia, nonspecific T wave abnormalities,
-Telemetry
- IV fluids given
- Check orthostatic vital signs
- CT head pending
- Patient accepted to [facility] under oncology service of Dr. Burk
# Ongoing diffuse bilateral interstitial/airspace opacities unclear etiology
- No infectious symptoms/respiratory symptoms or hypoxemia or fever at this time
- Cardiac BNP 135
- As per [facility] originally was treated with broad-spectrum antibiotics previously when he had fever and completed treatment
- Continue Levaquin and posaconazole for prophylaxis
Myelodysplastic syndrome progressed to AML with T p53 deletion
- Continue prophylactic acyclovir
- Continue venetoclax
Neutropenia secondary to AML
-Absolute neutrophils of 0
- No signs of infection
- Neutropenic precautions
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
- Hemoglobin 7.2
Thrombocytopenia secondary to AML
- Platelets stable 36
Asthma
- Continue albuterol
BPH
- Continue tamsulosin
Full code
DVT prophylaxis�SCDs
Regular diet
[2025-07-12] VITALS (20 sets, daily range): BP systolic 112–152; BP diastolic 58–106; BMI 25.8
[2025-07-12 05:20] LABS: Hematocrit 21.0 % (39.0-52.0); Hemoglobin 7.1 g/dL (13.0-18.0); Mean Corp Hgb Conc. 33.8 g/dL (33.0-37.0); Mean Corpuscular Volume 89.0 fL (80.0-94.0); Platelet Count 32 10^3/uL (130-400); Red Cell Dist. Width 12.5 % (11.5-14.5)
[2025-07-12 05:23] LABS: Nucleated Red Blood Cells % 0 % (-)
[2025-07-12 05:53] LABS: ALT (SGPT) 164 U/L (0-50); AST (SGOT) 69 U/L (17-59); Albumin 2.7 g/dl (3.5-5.0); Alkaline Phosphatase 158 U/L (38-126); Blood Urea Nitrogen 9 mg/dl (9-20); Calcium 8.3 mg/dl (8.4-10.2); Carbon Dioxide 29 mmol/L (22-30); Chloride 105 mmol/L (98-107); Estimated Creatinine Clearance > 125 ml/min; Glucose 93 mg/dl (70-99); Potassium 3.7 mmol/L (3.5-5.1); Sodium 136 mmol/L (135-145); Total Protein 5.4 g/dl (6.3-8.2); eGFR > 60.00
--- NOTE | 2025-07-12 08:03 | W.PN.HOSP.TC ---
Today's Communication/Plan
-
Pending transfer to [facility]
Assessment / Plan
Assessment / Plan
Impression:
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 Both occurred while seated; preceded by nausea, without
chest pain, palpitations, dyspnea, cough, fever, or chills.
Recent hospitalization: 2 weeks at [place], discharged yesterday after blood and platelet transfusions; discharge Hgb 7.5.
Oncology history: Diagnosed with MDS in April; received ~20 transfusions; follows Dr. Jimena English at [place].
Prior admission: Initially at [facility] for febrile neutropenia and thrombocytopenia; CXR showed mild diffuse ground-glass opacities; cultures negative; treated with broad-spectrum antibiotics and transfusions.
[place] course: Started azacitidine + venetoclax induction therapy (06/28); empiric posaconazole for possible fungal infection; mild transaminitis attributed to posaconazole; Histoplasma negative.
Patient accepted for transfer to [facility] under service of Dr. Burk.
Assessment/plan:
Syncopal episodes � likely vasovagal
EKG: sinus bradycardia, nonspecific T-wave abnormalities
Telemetry monitoring
IV fluids administered
Check orthostatic vital signs
CT head pending
Patient accepted to [facility] under oncology service of Dr. Burk
Diffuse bilateral interstitial/airspace opacities � unclear etiology
No infectious or respiratory symptoms, hypoxemia, or fever currently
BNP: 135
Previously treated with broad-spectrum antibiotics during febrile episode; completed course
Continue Levaquin and posaconazole for prophylaxis
Myelodysplastic syndrome progressed to AML with TP53 deletion
Continue prophylactic acyclovir
Continue venetoclax
Neutropenia secondary to AML
Absolute neutrophil count: 0
No signs of infection
Maintain neutropenic precautions
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
Hemoglobin: 7.2
Thrombocytopenia secondary to AML
Platelets stable at 36
Asthma
Continue albuterol
BPH
Continue tamsulosin
CODE STATUS: Full code
DVT prophylaxis: SCDs
Diet: Regular diet
Disposition: Pending transfer to [facility]
Total time spent on today's encounter was 65 minutes which included time spent in counseling the patient/family regarding diagnosis and treatment plan as listed above, goals of care, and symptom management. Case was discussed with nursing staff,
specialists, and care coordinators/case management. All labs and imaging personally reviewed by me. Remainder the time spent in detailed review of previous records, lab data, imaging, and other medical provider documentation.
Anticipated Discharge: Today
Subjective/Interval History
-
Date of Service: July 12, 2025
Patient seen and examined at bedside, denies any chest pain or shortness of breath, no abdominal pain, no nausea, no vomiting, no diarrhea or constipation.
Objective Data
-
Labs:
Laboratory Results
07/12/25
04:28
WBC 0.5 L*
Hgb 7.1 L
Hct 21.0 L
Plt Count 32 L
Sodium 136
Potassium 3.7
Chloride 105
Carbon Dioxide 29
BUN 9
Creatinine 0.6 L
Glucose 93
Calcium 8.3 L
Total Bilirubin 0.6
AST 69 H
ALT 164 H
Alkaline Phosphatase 158 H
Vital Signs:
Vital Signs
Temp Pulse Resp BP Pulse Ox
98.5 F 73 17 124/78 95
07/12/25 07:17 07/12/25 06:30 07/12/25 06:30 07/12/25 06:00 07/12/25 04:52
I&O
07/11/25 07/12/25 07/13/25
06:59 06:59 06:59
Output Total 300 / 300
Balance -300 / -300
Physical Exam
-
General: Well Developed, Well Nourished, No Apparent Distress and Comfortable
HEENT: Normocephalic, Atraumatic, Moist Mucous Membranes, No Ptosis, PERRLA and Nose Appears Normal
Respiratory: Clear to Auscultation and Non Labored Respirations
Cardiac: Regular Rhythm and S1/S2
Breast: Deferred by me
GI: Soft, Nontender, Nondistended and Normal Bowel Sounds
Genito-urinary: No Costovertebral Tender
Musculoskeletal: No Clubbing, No Cyanosis and No Edema
Skin: Warm
Neuro: Awake, Alert, Oriented, AO x 3 and No Motor Deficits
Psych: Calm
Data Reviewed
-
Diagnostic Radiology: Image personally visualized and interpreted and Report Reviewed by me
CT Scan: Image personally visualized and interpreted and Report Reviewed by me
Ultrasound: Image personally visualized and interpreted and Report Reviewed by me
MRI: Image personally visualized and interpreted and Report Reviewed by me
Medical Tests (Nuc Med, Echo etc): Image personally visualized and interpreted and Report Reviewed by me
Labs: Labs Reviewed by me
Old Records: Reviewed
[2025-07-12] MEDS: THERAGRAN 1 TABLET PO (08:38)
[2025-07-12] MEDS: LEVAQUIN 500 MG PO (08:38)
[2025-07-12] MEDS: ZOVIRAX 800 MG PO ×2 (08:38→20:01)
--- NOTE | 2025-07-12 08:56 | PTCARENOTE ---
Morning accucheck resulted 101. Machine with unsuccessful data transfer.
[2025-07-12] MEDS: NOXAFIL 300 MG PO (10:38)
[2025-07-12] MEDS: ZOFRAN ODT (ORALLY DISINTEGRATING) 8 MG PO (10:41)
[2025-07-12 12:26] LABS: Glucose - Point of Care 101 mg/dl (70-99)
[2025-07-12 12:26] LABS: Glucose - Point of Care 127 mg/dl (70-99)
--- NOTE | 2025-07-12 15:50 | PTCARENOTE ---
Pt received from ED via stretcher. Pt AAOX3. Pt ambulated from stretcher to standing scale and then to bed. Personal items and call light within reach. Pt oriented to staff and environment.
[2025-07-12] MEDS: COMPAZINE 10 MG PO (17:46)
[2025-07-12] MEDS: NON-FORMULARY ITEM 50 MG PO (17:48)
[2025-07-12] MEDS: FLOMAX 0.4 MG PO (22:05)
[2025-07-12] MEDS: HYDROCORTISONE 1% CREAM 1 APPLIC TOPICAL (22:52)
[2025-07-13] MEDS: ANESTHETIC LOZENGE 1 LOZENGE PO (01:19)
[2025-07-13 03:03] VITALS: BP 138/86
[2025-07-13 07:47] VITALS: BP 127/74
[2025-07-13] MEDS: NOXAFIL 300 MG PO (08:47)
[2025-07-13] MEDS: THERAGRAN 1 TABLET PO (08:48)
[2025-07-13] MEDS: LEVAQUIN 500 MG PO (08:48)
[2025-07-13] MEDS: HYDROCORTISONE 1% CREAM 1 APPLIC TOPICAL ×2 (08:48→20:57)
[2025-07-13] MEDS: ZOVIRAX 800 MG PO ×2 (08:48→21:00)
--- NOTE | 2025-07-13 10:29 | CM ---
Addendum entered by Anna Marie Araiza 07/13/25 10:50:
IMM explained & signed. In chart
Original Note:
Patient seen at bedside
IA completed
lives in a capecod with spouse with 2STE, first floor set up
Pt is independent with his ADLs
Has a WW, rollator, and commode for use if needed
Denies financial insecurities andhas Rx coverage
PCP- Lucille Anand
Rx- [facility]
PLAN: Pending transfer to [facility]
[2025-07-13 11:16] VITALS: BP 138/79
--- NOTE | 2025-07-13 11:22 | W.PN.HOSP.TC ---
Today's Communication/Plan
-
Pending transfer to [facility]
Assessment / Plan
Assessment / Plan
Impression:
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 Both occurred while seated; preceded by nausea, without
chest pain, palpitations, dyspnea, cough, fever, or chills.
Recent hospitalization: 2 weeks at [place], discharged yesterday after blood and platelet transfusions; discharge Hgb 7.5.
Oncology history: Diagnosed with MDS in April; received ~20 transfusions; follows Dr. Jimena English at [place].
Prior admission: Initially at [facility] for febrile neutropenia and thrombocytopenia; CXR showed mild diffuse ground-glass opacities; cultures negative; treated with broad-spectrum antibiotics and transfusions.
[place] course: Started azacitidine + venetoclax induction therapy (06/28); empiric posaconazole for possible fungal infection; mild transaminitis attributed to posaconazole; Histoplasma negative.
Patient accepted for transfer to [facility] under service of Dr. Burk.
Assessment/plan:
Syncopal episodes � likely vasovagal
EKG: sinus bradycardia, nonspecific T-wave abnormalities
Telemetry monitoring
IV fluids administered
Check orthostatic vital signs
CT head pending
Patient accepted to [facility] under oncology service of Dr. Burk
Diffuse bilateral interstitial/airspace opacities � unclear etiology
No infectious or respiratory symptoms, hypoxemia, or fever currently
BNP: 135
Previously treated with broad-spectrum antibiotics during febrile episode; completed course
Continue Levaquin and posaconazole for prophylaxis
Myelodysplastic syndrome progressed to AML with TP53 deletion
Continue prophylactic acyclovir
Continue venetoclax
Neutropenia secondary to AML
Absolute neutrophil count: 0
No signs of infection
Maintain neutropenic precautions
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
Hemoglobin: 7.2
Thrombocytopenia secondary to AML
Platelets stable at 36
Asthma
Continue albuterol
BPH
Continue tamsulosin
CODE STATUS: Full code
DVT prophylaxis: SCDs
Diet: Regular diet
Disposition: Pending transfer to [facility]
Recommendation: Discussed with sister and [id number] at bedside.
Total time spent on today's encounter was 65 minutes which included time spent in counseling the patient/family regarding diagnosis and treatment plan as listed above, goals of care, and symptom management. Case was discussed with nursing staff,
specialists, and care coordinators/case management. All labs and imaging personally reviewed by me. Remainder the time spent in detailed review of previous records, lab data, imaging, and other medical provider documentation.
Anticipated Discharge: Today
Subjective/Interval History
-
Date of Service: July 13, 2025
Patient seen and examined at bedside, denies any chest pain, had coughing overnight which improved, denied shortness of breath, no abdominal pain, no nausea, no vomiting, no diarrhea or constipation.
Objective Data
-
Labs:
Laboratory Results
07/13/25
11:00
WBC Pending
Hgb Pending
Hct Pending
Plt Count Pending
Sodium Pending
Potassium Pending
Chloride Pending
Carbon Dioxide Pending
BUN Pending
Creatinine Pending
Glucose Pending
Calcium Pending
Total Bilirubin Pending
AST Pending
ALT Pending
Alkaline Phosphatase Pending
Vital Signs:
Vital Signs
Temp Pulse Resp BP Pulse Ox
98.9 F 95 16 138/79 95
07/13/25 11:16 07/13/25 11:16 07/13/25 11:16 07/13/25 11:16 07/13/25 11:16
I&O
07/12/25 07/13/25 07/14/25
06:59 06:59 06:59
Intake Total 720 / 720
Output Total 300 / 300 500 / 500
Balance -300 / -300 220 / 220
Physical Exam
-
General: Well Developed, Well Nourished, No Apparent Distress and Comfortable
HEENT: Normocephalic, Atraumatic, Moist Mucous Membranes, No Ptosis, PERRLA and Nose Appears Normal
Respiratory: Clear to Auscultation and Non Labored Respirations
Cardiac: Regular Rhythm and S1/S2
Breast: Deferred by me
GI: Soft, Nontender, Nondistended and Normal Bowel Sounds
Genito-urinary: No Costovertebral Tender
Musculoskeletal: No Clubbing, No Cyanosis and No Edema
Skin: Warm
Neuro: Awake, Alert, Oriented, AO x 3 and No Motor Deficits
Psych: Calm
[2025-07-13 12:19] LABS: ALT (SGPT) 149 U/L (0-50); AST (SGOT) 62 U/L (17-59); Albumin 3.0 g/dl (3.5-5.0); Alkaline Phosphatase 160 U/L (38-126); Blood Urea Nitrogen 11 mg/dl (9-20); Calcium 8.4 mg/dl (8.4-10.2); Carbon Dioxide 28 mmol/L (22-30); Chloride 102 mmol/L (98-107); Estimated Creatinine Clearance > 125 ml/min; Glucose 106 mg/dl (70-99); Potassium 3.5 mmol/L (3.5-5.1); Sodium 135 mmol/L (135-145); Total Protein 6.1 g/dl (6.3-8.2); eGFR > 60.00
[2025-07-13 12:24] LABS: Hematocrit 21.2 % (39.0-52.0); Hemoglobin 7.4 g/dL (13.0-18.0); Mean Corp Hgb Conc. 34.9 g/dL (33.0-37.0); Mean Corpuscular Volume 83.1 fL (80.0-94.0); Nucleated Red Blood Cells % 0 % (-); Platelet Count 21 10^3/uL (130-400); Red Cell Dist. Width 12.1 % (11.5-14.5)
[2025-07-13 15:08] VITALS: BP 123/71
[2025-07-13] MEDS: ZOFRAN ODT (ORALLY DISINTEGRATING) 8 MG PO (17:51)
[2025-07-13] MEDS: NON-FORMULARY ITEM 50 MG PO (17:52)
[2025-07-13 20:00] VITALS: BP 129/73
[2025-07-13] MEDS: SENOKOT-S 1 TABLET PO (21:00)
[2025-07-13] MEDS: MIRALAX 17 GRAMS PO (21:00)
[2025-07-13] MEDS: FLOMAX 0.4 MG PO (21:04)
[2025-07-13 23:11] VITALS: BP 133/73
[2025-07-14] VITALS (7 sets, daily range): BP systolic 102–146; BP diastolic 50–80
[2025-07-14] MEDS: TYLENOL 650 MG PO ×2 (02:38→22:15)
[2025-07-14 06:04] LABS: Blood Urea Nitrogen 11 mg/dl (9-20); Calcium 8.1 mg/dl (8.4-10.2); Carbon Dioxide 28 mmol/L (22-30); Chloride 101 mmol/L (98-107); Estimated Creatinine Clearance 108 ml/min; Glucose 104 mg/dl (70-99); Potassium 3.6 mmol/L (3.5-5.1); Sodium 134 mmol/L (135-145); eGFR > 60.00
[2025-07-14 07:11] LABS: Hematocrit 18.9 % (39.0-52.0); Hemoglobin 6.6 g/dL (13.0-18.0); Mean Corp Hgb Conc. 34.9 g/dL (33.0-37.0); Mean Corpuscular Volume 84.4 fL (80.0-94.0); Platelet Count 13 10^3/uL (130-400); Red Cell Dist. Width 12.3 % (11.5-14.5)
--- NOTE | 2025-07-14 08:00 | W.PN.HOSP.TC ---
Addendum entered and electronically signed by Rupert Smith MD 07/14/25 15:12:
Pancytopenia
Original Note:
Today's Communication/Plan
-
Pending transfer to [facility]
Proceed with 1 unit of blood transfusion.
Cardiology consulted.
CT head.
X-ray abdomen ordered
Assessment / Plan
Assessment / Plan
Impression:
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 Both occurred while seated; preceded by nausea, without
chest pain, palpitations, dyspnea, cough, fever, or chills.
Recent hospitalization: 2 weeks at [place], discharged yesterday after blood and platelet transfusions; discharge Hgb 7.5.
Oncology history: Diagnosed with MDS in April; received ~20 transfusions; follows Dr. Jimena English at [place].
Prior admission: Initially at [facility] for febrile neutropenia and thrombocytopenia; CXR showed mild diffuse ground-glass opacities; cultures negative; treated with broad-spectrum antibiotics and transfusions.
[place] course: Started azacitidine + venetoclax induction therapy (06/28); empiric posaconazole for possible fungal infection; mild transaminitis attributed to posaconazole; Histoplasma negative.
Patient accepted for transfer to [facility] under service of Dr. Burk.
07/14
Patient had another syncopal event with clearance rep showing bradycardia and questionable pauses.
Cardiology consulted
Assessment/plan:
Syncopal episodes � likely vasovagal
EKG: sinus bradycardia, nonspecific T-wave abnormalities
Telemetry monitoring
IV fluids administered
Check orthostatic vital signs
CT head pending
Patient accepted to [facility] under oncology service of Dr. Burk
07/14
Patient had another syncopal event with clearance rep showing bradycardia and questionable pauses (see rhythm strip below).
Cardiology consulted
Diffuse bilateral interstitial/airspace opacities � unclear etiology
No infectious or respiratory symptoms, hypoxemia, or fever currently
BNP: 135
Previously treated with broad-spectrum antibiotics during febrile episode; completed course
Continue Levaquin and posaconazole for prophylaxis
Myelodysplastic syndrome progressed to AML with TP53 deletion
Continue prophylactic acyclovir
Continue venetoclax
Neutropenia secondary to AML
Absolute neutrophil count: 0
No signs of infection
Maintain neutropenic precautions
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
On admission hemoglobin: 7.2
07/14
Hemoglobin dropped to 6.6.
Will proceed with 1 unit of blood transfusion (CMV safe/leukocyte reduced)
Thrombocytopenia secondary to AML
Platelets stable at 36 dropped to 13 today.
May consider platelet transfusion if drops less than 10 or if any sign of bleeding
Asthma
Continue albuterol
BPH
Continue tamsulosin
CODE STATUS: Full code
DVT prophylaxis: SCDs
Diet: Regular diet
Disposition: Pending transfer to [facility]
Proceed with 1 unit of blood transfusion.
Cardiology consulted.
CT head.
X-ray abdomen ordered
Total time spent on today's encounter was 65 minutes which included time spent in counseling the patient/family regarding diagnosis and treatment plan as listed above, goals of care, and symptom management. Case was discussed with nursing staff,
specialists, and care coordinators/case management. All labs and imaging personally reviewed by me. Remainder the time spent in detailed review of previous records, lab data, imaging, and other medical provider documentation.
Anticipated Discharge: Today
Subjective/Interval History
-
Date of Service: July 14, 2025
Patient seen and examined at bedside, denies any chest pain or shortness of breath, no abdominal pain, no nausea, no vomiting, no diarrhea or constipation.
Hemoglobin dropped to 6.6, will proceed with 1 unit of blood transfusion.
Patient had syncopal event again today, clearance rep shows bradycardia and sinus pause, cardiology consulted.
Objective Data
-
Labs:
Laboratory Results
07/14/25
05:20
WBC 0.3 L*
Hgb 6.6 L*
Hct 18.9 L*
Plt Count 13 L* D
Sodium 134 L
Potassium 3.6
Chloride 101
Carbon Dioxide 28
BUN 11
Creatinine 0.7
Glucose 104 H
Calcium 8.1 L
Vital Signs:
Vital Signs
Temp Pulse Resp BP Pulse Ox
98.2 F 89 16 119/61 93
07/14/25 07:28 07/14/25 07:28 07/14/25 07:28 07/14/25 07:28 07/14/25 07:28
I&O
07/13/25 07/14/25 07/15/25
06:59 06:59 06:59
Intake Total 720 / 720 1680 / 1680
Output Total 500 / 500
Balance 220 / 220 1680 / 1680
Physical Exam
-
General: Well Developed, Well Nourished, No Apparent Distress and Comfortable
HEENT: Normocephalic, Atraumatic, Moist Mucous Membranes, No Ptosis, PERRLA and Nose Appears Normal
Respiratory: Clear to Auscultation and Non Labored Respirations
Cardiac: Regular Rhythm and S1/S2
Breast: Deferred by me
GI: Soft, Nontender, Nondistended and Normal Bowel Sounds
Genito-urinary: No Costovertebral Tender
Musculoskeletal: No Clubbing, No Cyanosis and No Edema
Skin: Warm
Neuro: Awake, Alert, Oriented, AO x 3 and No Motor Deficits
Psych: Calm
[2025-07-14] MEDS: NOXAFIL 300 MG PO (08:19)
[2025-07-14] MEDS: ZOVIRAX 800 MG PO ×2 (08:19→22:15)
[2025-07-14] MEDS: THERAGRAN 1 TABLET PO (08:19)
[2025-07-14] MEDS: SENOKOT-S 1 TABLET PO ×2 (08:20→22:15)
[2025-07-14] MEDS: HYDROCORTISONE 1% CREAM 1 APPLIC TOPICAL ×2 (08:20→22:14)
[2025-07-14] MEDS: LEVAQUIN 500 MG PO (08:20)
[2025-07-14] MEDS: MIRALAX 17 GRAMS PO ×2 (08:20→22:14)
--- NOTE | 2025-07-14 08:51 | CM ---
chart reviewed
Pending transfer to [facility]
PLAN: Transfer to [facility]
[2025-07-14 10:23] LABS: Glucose - Point of Care 122 mg/dl (70-99)
[2025-07-14] MEDS: ZOFRAN ODT (ORALLY DISINTEGRATING) 8 MG PO (10:45)
--- NOTE | 2025-07-14 13:31 | CON.CAR ---
Addendum entered and electronically signed by Natan Leal MD 07/14/25 17:08:
I saw and examined the patient.
The Digital Forensics Examiner's note was reviewed and I agree with the note.
Comment: Briefly, 69-year-old man past medical history of myelodysplastic syndrome/AML who presents following a syncopal episode.
Patient describes recurrent syncopal episode earlier today
Was using the bathroom and developed abdominal pain and queasiness
Had reliable prodrome and then experienced loss of consciousness
Telemetry reviewed showing sinus slowing, subsequent sinus pause, and then recovery
Overall this seems most consistent with vasovagal syncope. Patient tells me he has longstanding history of similar episodes.
Would keep on telemetry here
Avoid AV fanta blockers
Replete electrolytes
Discussed staying well-hydrated and getting into a seated or lying position when prodromal symptoms come on
For completeness we will arrange for transthoracic echocardiogram
Rest per Brenna Zepeda
Original Note:
Consultation
Consultation Request
Date/Time Consultation Requested: 07/14/2025
Date/Time Consultation Performed: 07/14/2025
Requesting Provider: Dr. Smith
Performing Provider: Brenna Zepeda PA-C for Dr. Leal
Reason for Consultation: Bradycardia, syncope
Medical History
-
History of Present Illness:
HPI: Griffin is a 69 year old male with PMH of MDS w/ recent progression to AML, asthma, and BPH. He was recently admitted for 2 weeks at [place] and was discharged 1 day prior to hospitalization at [facility]. He presented to [facility] ER for evaluation after he
had multiple episodes of syncope while seated in the setting of significant nausea. He has been on levaquin, posaconazole, and acylovir this admission and continues on venetoclax. Hgb has been drifting downwards, down to 6.6 in AM 07/14 and is
getting 1 unit PRBCs at this time. Platelet down to 13K. In AM on 07/14, noted to have another episode of syncope while in the bathroom. States he urinated and had sudden onset of sharp abdominal pain and after that began feeling like he would pass
out. His told him to lie down and pull the cord and he states the next thing he knew, he was waking up. On tele, noted to roberta down with HR into the 20s with 5.8 second pause. He had head CT which was negative and abdominal xray unremarkable.
No recurrent abdominal pain noted. Resting comfortably in bed at this time. He is pending transfer back to [place], awaiting bed.
PMH:
MDS recently progressed to AML
Asthma
BPH
Past Medical History
Past Medical History: Other (In HPI)
Social History
Tobacco: Non-Smoker
Alcohol: Occasional
Drug: None
Personal:
Living: With Family
Family History
Family History: Reviewed & Not Pertinent
Allergies / Home Medications
Allergy/AdvReac Type Severity Reaction Status Date / Time
shellfish derived Allergy Anaphylaxis Verified 07/11/25 14:00
�Medication �Instructions �Recorded �Confirmed �Type
albuterol sulfate 90 mcg/actuation 2 puff inhalation R Q6HPRN PRN sob 05/08/25 07/11/25 History
aerosol inhaler
therapeutic multivitamin 1 tab PO DAILY Supplement 05/08/25 07/11/25 History
turmeric 400 mg capsule 400 mg PO DAILY Supplement 05/08/25 07/11/25 History
coenzyme Q10 30 mg capsule 30 mg PO DAILY Supplement 05/24/25 07/11/25 History
epinephrine 0.1 mg/0.1 mL 1 ml SC DAILY PRN allergic reaction 05/24/25 07/11/25 History
injection, auto-injector
acyclovir 800 mg tablet 800 mg PO BID keno terminal operator prophylaxis 07/11/25 07/11/25 History
levofloxacin 500 mg tablet 500 mg PO DAILY prophylaxis 07/11/25 07/11/25 History
antibiotic
ondansetron 8 mg disintegrating 8 mg PO Q8H PRN nausea 07/11/25 07/11/25 History
tablet
posaconazole 100 mg tablet,delayed 300 mg PO DAILY prophylaxis 07/11/25 07/11/25 History
release antibiotic
prochlorperazine maleate 10 mg 10 mg PO Q6H PRN nausea 07/11/25 07/11/25 History
tablet (Compazine)
tamsulosin 0.4 mg capsule 0.4 mg PO HS Urinary Issue 07/11/25 07/11/25 History
venetoclax 50 mg tablet 50 mg PO DAILY cancer (AML) 07/11/25 07/11/25 History
Review of Systems
-
History Source: Patient and Family
All other systems: Negative unless noted
Physical Exam
Vital Signs
Temp Pulse Resp BP Pulse Ox
99.5 F 87 16 102/50 94
07/14/25 12:17 07/14/25 12:17 07/14/25 12:17 07/14/25 12:17 07/14/25 10:49
Lab Results
07/14/25 05:20
07/14/25 05:20
Ova-Y-Vlvuevghvuq Pept 135 pg/ml 07/11/25 16:15
Physical Exam
General: Well Developed, Well Nourished and No Apparent Distress
HEENT: Normocephalic, Anicteric and Moist Mucous Membranes
Respiratory: Non Labored Respirations
Cardiac: Regular Rhythm
Musculoskeletal: No Clubbing, No Cyanosis and No Edema
Skin: Warm and Dry
Neuro: AO x 3 and Nonfocal/Grossly Intact
Psych: Calm
Impression / Plan
-
PCP: Dr. Anand
Line Maintenance Supervisor: None prior to admission
Impression:
Presented with recurrent syncope
Bradycardia, 5 second pause on tele
Anemia, thrombocytopenia due to AML
MDS recently progressed to AML
Asthma
BPH
Echo 07/14/2025: Study pending
Plan:
-Presented with recurrent syncope. Initially episodes at home were associated with nausea. EKG on admission SR with HR 58 bpm.
-In AM 07/14 had syncopal episode after having sharp abdominal pain. Noted to become bradycardic w/ HR into the 20s. No further arrhythmias noted on tele. Likely vasovagal in the setting of abdominal pain
-Not on any AV fanta blockers, would continue to avoid.
-No plans for PPM at this time given hgb 6.6 and platelet count of 13K.
-Continue to follow on tele
-BP overall stable. Not on any antihypertensive medications.
-Check echo
-Continue abx, antiviral, antifungal per primary service.
-Pending transfer to [facility].
HPI: Griffin is a 69 year old male with PMH of MDS w/ recent progression to AML, asthma, and BPH. He was recently admitted for 2 weeks at [place] and was discharged 1 day prior to hospitalization at [facility]. He presented to [facility] ER for evaluation after he
had multiple episodes of syncope while seated in the setting of significant nausea. He has been on levaquin, posaconazole, and acylovir this admission and continues on venetoclax. Hgb has been drifting downwards, down to 6.6 in AM 07/14 and is
getting 1 unit PRBCs at this time. Platelet down to 13K. In AM on 07/14, noted to have another episode of syncope while in the bathroom. States he urinated and had sudden onset of sharp abdominal pain and after that began feeling like he would pass
out. His told him to lie down and pull the cord and he states the next thing he knew, he was waking up. On tele, noted to roberta down with HR into the 20s with 5.8 second pause. He had head CT which was negative and abdominal xray unremarkable.
No recurrent abdominal pain noted. Resting comfortably in bed at this time. He is pending transfer back to [place], awaiting bed.
Data Reviewed
-
EKG: Tracing Personally Visualized and interpreted
Radiology: Report Reviewed by me
CT Scan: Report Reviewed by me
Labs: Labs Reviewed by me
Old Records: Reviewed
--- NOTE | 2025-07-14 14:31 | PN.CDI ---
CDI
- -
CDI:
Physician Documentation Request
Admit Date: 07/11/25 23:44
Dear Doctor Sarah,
Clinical Indicators:
Patient admitted with syncope; PMH includes MDS, progressed to AML.
Neutropenia, anemia, and thrombocytopenia documented.
WBC, RBC, Hgb, Plt trend:
07/11/25 07/12/25 07/13/25
15:54 04:28 11:27
WBC 0.3 L* 0.5 L* 0.6 L*
RBC 2.08 L 2.36 L 2.55 L
Hgb 7.2 L 7.1 L 7.4 L
Plt Count 36 L 32 L 21 L* D
Based on the above, could you clarify in the progress notes, the appropriate diagnosis, if significant, that supports the above abnormalities and additional evaluation, monitoring and/or treatment rendered:
Pancytopenia
Neutropenia, anemia, thrombocytopenia only
Other
Use of terms such as suspected, likely, concern for, or probable (associated with a specific diagnosis that is being evaluated, monitored, or treated as if it exists) are acceptable and can be coded in the inpatient setting, when documented at the
time of discharge.
Thank you,
DENNY Moran RN
CDI Specialist
available via tiger text
Please use your independent medical judgment in providing your response.
--- NOTE | 2025-07-14 14:41 | PTCARENOTE ---
This nurse heard the bathroom emergency alarm going off in room 321, when I entered the room, the pt. was found to be laying on the floor with his of the phone. This nurse called for help. According to , pt. was sitting on the toilet and
began to have a sharp pain in his stomach and started to feel lightheaded. His told the pt. to lower himself down to the ground and pull the bathroom emergency cord, which he did. MD arrived to help this nurse in the bathroom, BP taken 110/60
and glucose taken and was 122. With the help of two nurses, this pt. was able to walk back into the bed. Head CT and abdominal XRAY ordered. Pt. insisted he did not fall or hit his head, also insisted he did not fall (even though she was not
present). Pt. is a high fall risk, signs indicating that on the door (round trip and high fall risk) and pt. is also on a bed alarm. When this nurse asked pt. who walked him to the bathroom, this pt. and his admitted to the pt. turning off his
bed alarm and walking himself to the bathroom. This nurse educated pt. on the risks of falling and the need to have someone with him at all times. Patient agreed to terms. Will continue with ongoing plan of care.
[2025-07-14] MEDS: COMPAZINE 10 MG PO (16:43)
[2025-07-14] MEDS: NON-FORMULARY ITEM 50 MG PO (17:23)
[2025-07-14] MEDS: FLOMAX 0.4 MG PO (22:15)
[2025-07-15] VITALS (15 sets, daily range): BP systolic 108–132; BP diastolic 59–72
--- NOTE | 2025-07-15 08:15 | W.PN.HOSP.TC ---
Today's Communication/Plan
-
see plan
Assessment / Plan
Assessment / Plan
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 Both occurred while seated; preceded by nausea, without chest pain,
palpitations, dyspnea, cough, fever, or chills.
Recent hospitalization: 2 weeks at [facility], discharged yesterday after blood and platelet transfusions; discharge Hgb 7.5.
Oncology history: Diagnosed with MDS in April 2025; received ~20 transfusions; follows Dr. Jimena English at [facility].
Prior admission: Initially at [facility] for febrile neutropenia and thrombocytopenia; CXR showed mild diffuse ground-glass opacities; cultures negative; treated with broad-spectrum antibiotics and transfusions.
[facility] course: Started azacitidine + venetoclax induction therapy (06/28); empiric posaconazole for possible fungal infection; mild transaminitis attributed to posaconazole; Histoplasma negative.
Patient accepted for transfer to [facility] under service of Dr. Burk.
Gen: NAD, AAOx3.
Eyes: EOMI, PERRLA, no scleral icterus.
Neck: supple.
CV: RRR, +S1/S2, no m/r/g.
Resp: CTAB, no rales, wheezes, or rhonchi.
Abd: +BS, soft, NT, ND
Skin: No rashes.
Neuro: CN 2-12 intact, non-focal.
Psych: Normal mood and affect.
CXR 07/11: Diffuse bilateral interstitial and airspace opacities may reflect pulmonary interstitial edema and/or pneumonitis/pneumonia.
CT brain:
1. No CT evidence for acute intracranial hemorrhage or transcortical infarct.
2. Minimal periventricular white matter leukoaraiosis.
3. Mild ethmoid air cell mucosal disease.
Abd Xray:
1. No radiographic evidence for bowel obstruction or pneumoperitoneum.
2. Moderate amount of fecal material throughout the colon and rectum.
3. Severe interstitial disease in the lower lobes of both lungs. Diagnostic possibilities are (1) acute infection, (2) a severe inflammatory interstitial pneumonitis, (3) less likely cardiogenic pulmonary edema, or (4) less likely lymphangitic
carcinomatosis.
Syncopal episodes:
-cards following
-s/p IVFs
-EKG (read by me): sinus bradycardia, nonspecific T-wave abnormalities
-likely vasovagal in etiology (prodrome of abd pain and nausea followed by sinus slowing, sinus pause, then recovery)
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
-with neutropenia, ANC 0, recheck today
-transfuse 2U plts
-s/p 1U pRBCs
-AM CBC pending
Diffuse bilateral interstitial/airspace opacities:
-etiology unclear
-No evidence of infection, not short of breath or hypoxemic, lungs clear
-BNP 135
-Previously treated with broad-spectrum antibiotics during febrile episode; completed course
-Continue Levaquin and posaconazole for prophylaxis
Other problems:
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
Asthma: cont albuterol
BPH: cont Flomax
FULL/SCDs
Anticipated Discharge: Today (awaiting transfer to [facility])
Subjective/Interval History
-
Date of Service: July 15, 2025
Denies CP/SOB. Denies any bleeding.
Objective Data
-
Labs:
Laboratory Results
07/15/25
06:00
WBC Pending
Hgb Pending
Hct Pending
Plt Count Pending
Sodium Pending
Potassium Pending
Chloride Pending
Carbon Dioxide Pending
BUN Pending
Creatinine Pending
Glucose Pending
Calcium Pending
Vital Signs:
Vital Signs
Temp Pulse Resp BP Pulse Ox
99.4 F 83 18 119/59 96
07/15/25 03:00 07/15/25 03:00 07/15/25 03:00 07/15/25 03:00 07/15/25 03:00
I&O
07/14/25 07/15/25 07/16/25
06:59 06:59 06:59
Intake Total 1680 / 1680 960 / 960
Output Total 1500 / 1500
Balance 1680 / 1680 -540 / -540
[2025-07-15] MEDS: NOXAFIL 300 MG PO (08:31)
[2025-07-15] MEDS: MIRALAX 17 GRAMS PO (08:31)
[2025-07-15] MEDS: LEVAQUIN 500 MG PO (08:32)
[2025-07-15] MEDS: THERAGRAN 1 TABLET PO (08:32)
[2025-07-15] MEDS: ZOVIRAX 800 MG PO ×2 (08:32→22:06)
[2025-07-15] MEDS: HYDROCORTISONE 1% CREAM 1 APPLIC TOPICAL ×2 (08:32→22:05)
[2025-07-15] MEDS: SENOKOT-S 1 TABLET PO (08:32)
[2025-07-15 10:52] LABS: Blood Urea Nitrogen 9 mg/dl (9-20); Calcium 8.1 mg/dl (8.4-10.2); Carbon Dioxide 30 mmol/L (22-30); Chloride 104 mmol/L (98-107); Estimated Creatinine Clearance > 125 ml/min; Glucose 105 mg/dl (70-99); Potassium 3.5 mmol/L (3.5-5.1); Sodium 135 mmol/L (135-145); eGFR > 60.00
[2025-07-15 11:16] LABS: Hematocrit 19.6 % (39.0-52.0); Hemoglobin 6.9 g/dL (13.0-18.0); Mean Corp Hgb Conc. 35.2 g/dL (33.0-37.0); Mean Corpuscular Volume 84.5 fL (80.0-94.0); Platelet Count 6 10^3/uL (130-400); Red Cell Dist. Width 12.2 % (11.5-14.5)
[2025-07-15 12:00] LABS: Nucleated Red Blood Cells % 0 % (-)
--- NOTE | 2025-07-15 13:46 | CM ---
Patient seen at bedside
Await bed at [facility]
PLAN: Transfer [facility]
[2025-07-15] MEDS: NON-FORMULARY ITEM 50 MG PO (17:14)
[2025-07-15] MEDS: TYLENOL 650 MG PO (17:14)
[2025-07-15] MEDS: ZOFRAN ODT (ORALLY DISINTEGRATING) 8 MG PO (17:27)
--- NOTE | 2025-07-15 18:49 | PTCARENOTE ---
at 11:[address] Vernon via tiger text for critical level of WBC 0.3, H/H 6.9/19.6 and platelets of 6. placing electronic ordered for 2units of PRBC's and previously ordered 2 units of platelets. pt tolerated platelets and 1st unit of
PRBC's infusing, vss, no s/s of reaction, PRN Tylenol administered for c/o headache, (See MAR), will continue to monitor.
[2025-07-15] MEDS: MIRALAX PO (22:03)
[2025-07-15] MEDS: SENOKOT-S PO (22:04)
[2025-07-15] MEDS: FLOMAX 0.4 MG PO (22:06)
--- NOTE | 2025-07-15 22:48 | VATNOTE ---
Called by staff editor, no blood return both lumens of Rt. DL Picc. Picc retracted under sterile conditions, 1cm, but still no blood return. I placed a peripheral IV in left arm for the blood transfusion. Requested alteplase both lumens, staff editor to [facility]
[employer] INSPECT[employer]. Will follow.
[2025-07-16] VITALS (12 sets, daily range): BP systolic 124–132; BP diastolic 66–80
[2025-07-16] MEDS: CATHFLO/ACTIVASE 2 MG INTRACATH ×2 (00:40→08:27)
--- NOTE | 2025-07-16 01:07 | VATNOTE ---
0050-BOTH LUMENS OF 5FR DL R PICC OCCLUDED. NON PATENT AND NO BR. CATHFLO PER PROTOCOL VIA PURPLE LUMEN W/ STOPCOCK. WILL CONTINUE TO ASSESS AND ATTEMPT TO INSTILL CATHLFO. PCN AND PT AWARE OF INTERVENTION AND PLAN OF CARE.
--- NOTE | 2025-07-16 01:47 | VATNOTE ---
PURPLE LUMEN RE-ASSESSED. UNABLE TO FLUSH/CATHFLO VIA STOPCOCK REMAINS.
--- NOTE | 2025-07-16 03:06 | VATNOTE ---
PURPLE LUMEN REMAINS NON PATENT/NO BR-CATHFLO DWELLING
--- NOTE | 2025-07-16 05:14 | VATNOTE ---
0430-PURPLE LUMEN OF 5FR DL R PICC NOW PATENT AND WITH A GOOD BR. FLUSHED PER PROTOCOL. AM LABS OBTAINED ORDERED AND CAP CAHNGED. RED LUMEN REMAINS OCCLUDED. WILL CATHFLO RED LUMEN IN AM AFTER PT HAS HAD SOME UNINTERRUPTED SLEEP. PCN AWARE OF
OUTCOME AND PLAN OF CARE.
[2025-07-16 05:37] LABS: Blood Urea Nitrogen 13 mg/dl (9-20); Calcium 7.9 mg/dl (8.4-10.2); Carbon Dioxide 28 mmol/L (22-30); Chloride 101 mmol/L (98-107); Estimated Creatinine Clearance > 125 ml/min; Glucose 100 mg/dl (70-99); Potassium 3.4 mmol/L (3.5-5.1); Sodium 133 mmol/L (135-145); eGFR > 60.00
[2025-07-16] MEDS: TYLENOL 650 MG PO ×2 (05:50→17:54)
[2025-07-16 05:54] LABS: Hematocrit 22.1 % (39.0-52.0); Hemoglobin 7.8 g/dL (13.0-18.0); Mean Corp Hgb Conc. 35.3 g/dL (33.0-37.0); Mean Corpuscular Volume 81.0 fL (80.0-94.0); Platelet Count 12 10^3/uL (130-400); Red Cell Dist. Width 14.6 % (11.5-14.5)
[2025-07-16] MEDS: KCL 40 MEQ PO (06:18)
[2025-07-16] MEDS: LEVAQUIN 500 MG PO (08:33)
[2025-07-16] MEDS: HYDROCORTISONE 1% CREAM 1 APPLIC TOPICAL (08:33)
[2025-07-16] MEDS: ZOVIRAX 800 MG PO ×2 (08:33→20:41)
[2025-07-16] MEDS: THERAGRAN 1 TABLET PO (08:33)
[2025-07-16] MEDS: NOXAFIL 300 MG PO (08:33)
[2025-07-16] MEDS: SENOKOT-S 1 TABLET PO (08:33)
[2025-07-16] MEDS: MIRALAX PO ×3 (08:34→20:34)
--- NOTE | 2025-07-16 08:39 | VATNOTE ---
PICC LINE RED LUMEN UNABLE TO FLUSH THIS AM, POWER FLUSHED WITH RESISTANCE, INSTILLED ALTEPLASE -SECOND DOSE- RED LUMEN WITH IMMEDIATE BLOOD RETURN AND +FLUSH. BOTH LUMENS FLUSHING AND BOTH WITH BLOOD RETURN AT THIS TIME. PRIMARY RN VLADIMIR AWARE
WELL PATIENT. PT RESTING
--- NOTE | 2025-07-16 11:43 | W.PN.HOSP.TC ---
Today's Communication/Plan
-
see plan
Assessment / Plan
Assessment / Plan
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 Both occurred while seated; preceded by nausea, without chest pain,
palpitations, dyspnea, cough, fever, or chills.
Recent hospitalization: 2 weeks at [facility], discharged yesterday after blood and platelet transfusions; discharge Hgb 7.5.
Oncology history: Diagnosed with MDS in April 2025; received ~20 transfusions; follows Dr. Jimena English at [facility].
Prior admission: Initially at [facility] for febrile neutropenia and thrombocytopenia; CXR showed mild diffuse ground-glass opacities; cultures negative; treated with broad-spectrum antibiotics and transfusions.
[facility] course: Started azacitidine + venetoclax induction therapy (06/28); empiric posaconazole for possible fungal infection; mild transaminitis attributed to posaconazole; Histoplasma negative.
Patient accepted for transfer to [facility] under service of Dr. Burk.
Gen: NAD, AAOx3.
Eyes: EOMI, PERRLA, no scleral icterus.
Neck: supple.
CV: remains RRR, +S1/S2, no m/r/g.
Resp: CTAB anteriorly, no rales, wheezes, or rhonchi.
Abd: remains +BS, soft, NT, ND
Skin: No rashes.
Neuro: CN 2-12 intact, non-focal.
Psych: Normal mood and affect.
CXR 07/11: Diffuse bilateral interstitial and airspace opacities may reflect pulmonary interstitial edema and/or pneumonitis/pneumonia.
CT brain:
1. No CT evidence for acute intracranial hemorrhage or transcortical infarct.
2. Minimal periventricular white matter leukoaraiosis.
3. Mild ethmoid air cell mucosal disease.
Abd Xray:
1. No radiographic evidence for bowel obstruction or pneumoperitoneum.
2. Moderate amount of fecal material throughout the colon and rectum.
3. Severe interstitial disease in the lower lobes of both lungs. Diagnostic possibilities are (1) acute infection, (2) a severe inflammatory interstitial pneumonitis, (3) less likely cardiogenic pulmonary edema, or (4) less likely lymphangitic
carcinomatosis.
Syncopal episodes:
-cards following
-s/p IVFs
-EKG (read by me): sinus bradycardia, nonspecific T-wave abnormalities
-likely vasovagal in etiology (prodrome of abd pain and nausea followed by sinus slowing, sinus pause, then recovery)
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
-with neutropenia, ANC 0
-s/p 3U pRBCs and 2U plts
-transfuse 2U plts today
-c/s ONC
Diffuse bilateral interstitial/airspace opacities:
-etiology unclear
-No evidence of infection, not short of breath or hypoxemic, lungs clear
-BNP 135
-Previously treated with broad-spectrum antibiotics during febrile episode; completed course
-Continue Levaquin and posaconazole for prophylaxis
Other problems:
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
Asthma: cont albuterol
BPH: cont Flomax
Pt's daughter, Rebecca, updated at length at bedside.
FULL/SCDs
Dispo: Likely will get a bed at [facility] today.
Anticipated Discharge: Today
Subjective/Interval History
-
Date of Service: July 16, 2025
Denies CP/SOB, denies any evidence of bleeding.
Objective Data
-
Labs:
Laboratory Results
07/16/25
04:46
WBC 0.4 L*
Hgb 7.8 L
Hct 22.1 L
Plt Count 12 L* D
Sodium 133 L
Potassium 3.4 L
Chloride 101
Carbon Dioxide 28
BUN 13
Creatinine 0.6 L
Glucose 100 H
Calcium 7.9 L
Vital Signs:
Vital Signs
Temp Pulse Resp BP Pulse Ox
98.3 F 89 17 124/71 95
07/16/25 08:16 07/16/25 08:16 07/16/25 08:16 07/16/25 08:16 07/16/25 08:20
I&O
07/15/25 07/16/25 07/17/25
06:59 06:59 06:59
Intake Total 960 / 960 729 / 729
Output Total 1500 / 1500 200 / 200
Balance -540 / -540 529 / 529
[2025-07-16] MEDS: ZOFRAN ODT (ORALLY DISINTEGRATING) 8 MG PO (17:48)
[2025-07-16] MEDS: NON-FORMULARY ITEM 50 MG PO (17:57)
--- NOTE | 2025-07-16 18:26 | W.PN.UPDATE ---
Update Note
Progress Note Update
Patient seen and examined at the request of the patient's nurse. Patient complaining of left-sided jaw pain. On exam the patient has soft tissue edema and tenderness to palpation in his left parotid gland. Currently on Levaquin but will add
Augmentin to his antibiotic regimen. Patient encouraged to order lemon wedges to induce dilation of the parotid duct.
--- NOTE | 2025-07-16 18:35 | PTCARENOTE ---
Pt and family members @bedside notified this RN about new swelling and pain to L side of face where the ear meet the jaw. Tylenol administered. notified and saw pt @bedside. New abx ordered. POC ongoing. Awaiting transfer to [facility].
[2025-07-16] MEDS: SENOKOT-S PO (20:35)
[2025-07-16] MEDS: FLOMAX 0.4 MG PO (20:40)
[2025-07-16] MEDS: AUGMENTIN 875 MG/125 MG 1 TABLET PO (20:41)
[2025-07-16] MEDS: HYDROCORTISONE 1% CREAM TOPICAL (20:43)
[2025-07-17] MEDS: TYLENOL 650 MG PO (01:46)
[2025-07-17 05:29] LABS: Hematocrit 20.5 % (39.0-52.0); Hemoglobin 7.2 g/dL (13.0-18.0); Mean Corp Hgb Conc. 35.1 g/dL (33.0-37.0); Mean Corpuscular Volume 83.0 fL (80.0-94.0); Platelet Count 26 10^3/uL (130-400); Red Cell Dist. Width 14.6 % (11.5-14.5)
[2025-07-17 05:44] LABS: Blood Urea Nitrogen 10 mg/dl (9-20); Calcium 8.0 mg/dl (8.4-10.2); Carbon Dioxide 31 mmol/L (22-30); Chloride 105 mmol/L (98-107); Estimated Creatinine Clearance > 125 ml/min; Glucose 98 mg/dl (70-99); Potassium 3.7 mmol/L (3.5-5.1); Sodium 137 mmol/L (135-145); eGFR > 60.00
[2025-07-17 07:32] VITALS: BP 133/75
--- NOTE | 2025-07-17 08:33 | W.PN.HOSP.TC ---
Today's Communication/Plan
-
d/c
Assessment / Plan
Assessment / Plan
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 Both occurred while seated; preceded by nausea, without chest pain,
palpitations, dyspnea, cough, fever, or chills.
Recent hospitalization: 2 weeks at [facility], discharged yesterday after blood and platelet transfusions; discharge Hgb 7.5.
Oncology history: Diagnosed with MDS in April 2025; received ~20 transfusions; follows Dr. Jimena English at [facility].
Prior admission: Initially at [facility] for febrile neutropenia and thrombocytopenia; CXR showed mild diffuse ground-glass opacities; cultures negative; treated with broad-spectrum antibiotics and transfusions.
[facility] course: Started azacitidine + venetoclax induction therapy (06/28); empiric posaconazole for possible fungal infection; mild transaminitis attributed to posaconazole; Histoplasma negative.
Patient accepted for transfer to [facility] under service of Dr. Burk.
Gen: NAD, AAOx3.
Eyes: EOMI, PERRLA, no scleral icterus.
ENMT: L parotid gland with mild edema nd TTP (improved from last night)
Neck: supple.
CV: continues to remain RRR, +S1/S2, no m/r/g.
Resp: CTAB anteriorly, no rales, wheezes, or rhonchi.
Skin: No rashes.
Neuro: CN 2-12 intact, non-focal.
Psych: Normal mood and affect.
CXR 07/11: Diffuse bilateral interstitial and airspace opacities may reflect pulmonary interstitial edema and/or pneumonitis/pneumonia.
CT brain:
1. No CT evidence for acute intracranial hemorrhage or transcortical infarct.
2. Minimal periventricular white matter leukoaraiosis.
3. Mild ethmoid air cell mucosal disease.
Abd Xray:
1. No radiographic evidence for bowel obstruction or pneumoperitoneum.
2. Moderate amount of fecal material throughout the colon and rectum.
3. Severe interstitial disease in the lower lobes of both lungs. Diagnostic possibilities are (1) acute infection, (2) a severe inflammatory interstitial pneumonitis, (3) less likely cardiogenic pulmonary edema, or (4) less likely lymphangitic
carcinomatosis.
Syncopal episodes:
-cards following
-s/p IVFs
-EKG (read by me): sinus bradycardia, nonspecific T-wave abnormalities
-likely vasovagal in etiology (prodrome of abd pain and nausea followed by sinus slowing, sinus pause, then recovery)
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
-with neutropenia, ANC 0
-s/p 3U pRBCs and 4U plts
-transfuse 1U pRBCs today (if able to be given prior to transfer)
-ONC c/s placed 07/16
Parotitis:
-Augmentin started 07/16
Diffuse bilateral interstitial/airspace opacities:
-etiology unclear
-No evidence of infection, not short of breath or hypoxemic, lungs clear
-BNP 135
-Previously treated with broad-spectrum antibiotics during febrile episode; completed course
-Continue Levaquin and posaconazole for prophylaxis
Other problems:
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
Asthma: cont albuterol
BPH: cont Flomax
FULL/SCDs
Transfer to [facility] today.
Total time spent on d/c = 33 min. This included today's physical exam, progress note, review of laboratory and diagnostic data, preparation of discharge documents and prescriptions, and discussions about the pt's hospital course and discharge plan
with the patient and other medical doctor md/medical director involved in the patient's care.
Anticipated Discharge: Today
Subjective/Interval History
-
Date of Service: July 17, 2025
reports nausea
Objective Data
-
Labs:
Laboratory Results
07/17/25
04:25
WBC 0.4 L*
Hgb 7.2 L
Hct 20.5 L*
Plt Count 26 L* D
Sodium 137
Potassium 3.7
Chloride 105
Carbon Dioxide 31 H
BUN 10
Creatinine 0.6 L
Glucose 98
Calcium 8.0 L
Vital Signs:
Vital Signs
Temp Pulse Resp BP Pulse Ox
98.2 F 77 16 133/75 93
07/17/25 07:32 07/17/25 07:32 07/17/25 07:32 07/17/25 07:32 07/17/25 07:32
I&O
07/16/25 07/17/25 07/18/25
06:59 06:59 06:59
Intake Total 729 / 729 1443 / 1443
Output Total 200 / 200 900 / 900
Balance 529 / 529 543 / 543
[2025-07-17] MEDS: NOXAFIL 300 MG PO (08:48)
[2025-07-17] MEDS: LEVAQUIN 500 MG PO (08:49)
[2025-07-17] MEDS: MIRALAX 17 GRAMS PO (08:49)
[2025-07-17] MEDS: THERAGRAN 1 TABLET PO (08:49)
[2025-07-17] MEDS: AUGMENTIN 875 MG/125 MG 1 TABLET PO (08:49)
[2025-07-17] MEDS: ZOVIRAX 800 MG PO (08:49)
[2025-07-17] MEDS: SENOKOT-S 1 TABLET PO (08:49)
[2025-07-17] MEDS: HYDROCORTISONE 1% CREAM 1 APPLIC TOPICAL (08:49)
--- NOTE | 2025-07-17 09:35 | CM ---
Addendum entered by Anna Marie Araiza 07/17/25 10:35:
bed available at [facility] today
IMM explained & signed. In chart
PLAN: Transfer to [facility]
Original Note:
patient awaiting bed at [facility]
Chart reviewed
PLAN: [facility]
--- NOTE | 2025-07-17 09:54 | CON.ONC ---
Consultation
-
Date Consultation Requested: 07/16/25
Date Consultation Performed: 07/17/25
Requesting Provider: Oswaldo Vernon
Performing Provider: Judy Fabian
Reason for Consultation: MDS/AML/pancytopenia
Impression
Impression
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 Jimena English at [facility]
S/p venetoclax and azacitidine x 7 days 06/28-07/05
Scheduled to have a 21-day bone marrow biopsy on 07/18 at [facility] with next cycle to start on 07/24 or 07 31 depending on pathology
Awaiting transfer to [facility]
Plan
Plan
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
#Pancytopenia
Follows with Dr. Jimena English at [facility]. Scheduled to have a 21-day bone marrow biopsy on 07/18 at [facility] with next cycle to start on 07/24 or 07/31 depending on pathology. Currently on prophylactic acyclovir, venetoclax and empiric antibiotics
Levaquin and Augmentin.
- Daily CBC, transfuse RBC and platelets as needed
- Will plan to expedite transfer to [facility] so patient can continue with scheduled biopsy and treatment
Patient History
History of Present Illness
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 Jimena English at [facility]), chronic anemia, thrombocytopenia, asthma, and BPH, who presented with multiple syncopal episodes, both of which occurred while seated and
were preceded by nausea, sometimes cramping, but always without dizziness, chest pain, palpitations, dyspnea, or chills. Of note, he was recently hospitalized at [facility] for neutropenic fever and CXR showing ground glass opacity. He received blood
transfusions and empiric antibiotics before he was transferred to [facility] for BMBx and was hospitalized there from 06/25-07/10. At [facility], repeat BMBx showed progression of blast to 20% and he was started on venetoclax and azacitidine on 06/28 with plan
to finish azacitidine in a week, be discharged, and have outpatient CBC and biweekly blood transfusions. He was scheduled to have a 21-day marrow on 07/18 at [facility] with next cycle to start on 07/24 or 07/31 depending on pathology. Since being in the
hospital this admission, he has had 1 episode of syncope on 07/14 while in the bathroom that was preceded by nausea. He has also been getting frequent blood transfusions, almost every 2 days, and been on empiric antibiotics (Levaquin, acyclovir,
Augmentin) given his neutropenia. He is awaiting transfer to [facility] for further management. Griffin states that he is very squeamish and would like to get out of the hospital as soon as possible. He currently denies nausea, dizziness,
palpitations, pain, fever, chills, cough, palpitations, and weakness. His Jackie has been in communication with [facility] and [facility].
Past-Medical/Surgical History
MDS progressed to AML
Chronic anemia
Thrombocytopenia
Asthma
BPH
Patient Medication
�Medication �Instructions �Recorded �Confirmed �Last Taken �Type
albuterol sulfate 90 mcg/actuation 2 puff inhalation R Q6HPRN PRN sob 05/08/25 07/11/25 Unknown History
aerosol inhaler
therapeutic multivitamin 1 tab PO DAILY Supplement 05/08/25 07/11/25 05/24/25 History
turmeric 400 mg capsule 400 mg PO DAILY Supplement 05/08/25 07/11/25 05/24/25 History
coenzyme Q10 30 mg capsule 30 mg PO DAILY Supplement 05/24/25 07/11/25 05/23/25 History
epinephrine 0.1 mg/0.1 mL 1 ml SC DAILY PRN allergic reaction 05/24/25 07/11/25 Unknown History
injection, auto-injector
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
levofloxacin 500 mg tablet 500 mg PO DAILY prophylaxis 07/11/25 07/11/25 07/11/25 History
antibiotic
ondansetron 8 mg disintegrating 8 mg PO Q8H PRN nausea 07/11/25 07/11/25 Unknown History
tablet
posaconazole 100 mg tablet,delayed 300 mg PO DAILY prophylaxis 07/11/25 07/11/25 07/11/25 History
release antibiotic
prochlorperazine maleate 10 mg 10 mg PO Q6H PRN nausea 07/11/25 07/11/25 Unknown History
tablet (Compazine)
tamsulosin 0.4 mg capsule 0.4 mg PO HS Urinary Issue 07/11/25 07/11/25 07/11/25 History
venetoclax 50 mg tablet 50 mg PO DAILY cancer (AML) 07/11/25 07/11/25 07/11/25 History
Active Medications
Generic Name Dose Route Start Last Admin
Trade Name Freq PRN Reason Stop Dose Admin
Acetaminophen 650 mg 07/14/25 02:29 07/17/25 01:46
Acetaminophen 325 Mg Tablet PO 08/11/25 02:28 650 mg
Q6HPRN PRN Administration
mild pain/QUESADA/temp>100.5
Acyclovir Sodium 800 mg 07/12/25 08:00 07/17/25 08:49
Acyclovir Sodium 800 Mg Tablet PO 07/22/25 07:59 800 mg
BID JORDY Administration
Albuterol 2 puff 07/12/25 01:52
Albuterol Hfa [90 Mcg/Dose] Inhaler INH
R Q6HPRN PRN
sob
Protocol
Amoxicillin/Clavulanate Potassium 1 tablet 07/16/25 20:00 07/17/25 08:49
Amoxicillin (875 Mg)/Clavulanate (125 Mg) Tablet PO 1 tablet
Q12 JORDY Administration
Benzocaine/Menthol 1 lozenge 07/13/25 00:51 07/13/25 01:19
Benzocaine/Menthol Lozenge PO 08/10/25 00:50 1 lozenge
Q2HPRN PRN Administration
sore throat/cough
Hydrocortisone 0 applic 07/12/25 23:00 07/17/25 08:49
Hydrocortisone 1% (Cream) Tube TOPICAL 08/09/25 22:59 1 applic
BID JORDY Administration
Levofloxacin 500 mg 07/12/25 08:00 07/17/25 08:49
Levofloxacin 500 Mg Tablet PO 500 mg
DAILY JORDY Administration
Multivitamins Therapeutic 1 tablet 07/12/25 08:00 07/17/25 08:49
Multivitamin Tablet PO 08/09/25 07:59 1 tablet
DAILY JORDY Administration
Pt's Own Venetoclax 50 mg 07/12/25 18:00 07/16/25 17:57
(Venclexta) 50 Mg PO 08/09/25 17:59 50 mg
Tab Po Daily@1800 DAILY@1800 JORDY Administration
Ondansetron HCl 8 mg 07/12/25 04:00 07/16/25 17:48
Ondansetron 4 Mg (Orally-Disintegrating) Tablet PO 08/09/25 03:59 8 mg
Q8H PRN Administration
nausea
Polyethylene Glycol 17 grams 07/13/25 20:00 07/17/25 08:49
Polyethylene Glycol Powder 17 Grams Packet PO 08/10/25 19:59 17 grams
BID JORDY Administration
Posaconazole 300 mg 07/12/25 08:00 07/17/25 08:48
Posaconazole 100 Mg Tablet.Dr (Non-Form) PO 07/22/25 07:59 300 mg
DAILY JORDY Administration
Prochlorperazine Maleate 10 mg 07/12/25 01:52 07/14/25 16:43
Prochlorperazine 10 Mg Tablet PO 08/09/25 01:51 10 mg
Q6H PRN Administration
nausea
Senna/Docusate Sodium 1 tablet 07/13/25 20:00 07/17/25 08:49
Docusate W/Senna (Anayeli-Colace) Tablet PO 08/10/25 19:59 1 tablet
BID JORDY Administration
Sodium Chloride 0 flush 07/12/25 23:00
Sodium Chloride 0.9% (Flush) Syringe IV 08/09/25 22:59
PER PROTOCOL JORDY
Tamsulosin HCl 0.4 mg 07/12/25 22:00 07/16/25 20:40
Tamsulosin 0.4 Mg Capsule PO 08/09/25 21:59 0.4 mg
HS JORDY Administration
Review of Systems
-
History Source: Patient
All Other Systems: Reviewed and Negative
Constitutional: Reports Weight Loss and Fatigue
GI: Reports Nausea
Neuro: Reports Weakness
Psych: Reports Anxious
Physical Exam
-
General: Well Nourished, No Apparent Distress, Comfortable and Conversant
HEENT: Moist Mucous Membranes
Cardiology: Normal Sinus Rhythm
Pulmonary: Clear
GI: Soft and Normal Bowel Sounds
Musculoskeletal: No Clubbing and No Cyanosis
Skin: Warm and Dry
Psych: Intact Judgement/Insight and Anxious
Labs
Lab Results
WBC 0.4 10^3/uL (4.8-10.8) L* 07/17/25 04:25
RBC 2.47 10^6/uL (4.70-6.10) L 07/17/25 04:25
Hgb 7.2 g/dL (13.0-18.0) L 07/17/25 04:25
Hct 20.5 % (39.0-52.0) L* 07/17/25 04:25
MCV 83.0 fL (80.0-94.0) 07/17/25 04:25
MCH 29.1 pg (27.0-31.0) 07/17/25 04:25
MCHC 35.1 g/dL (33.0-37.0) 07/17/25 04:25
RDW 14.6 % (11.5-14.5) H 07/17/25 04:25
Plt Count 26 10^3/uL (130-400) L* D 07/17/25 04:25
MPV 9.9 fL (7.4-10.4) 07/17/25 04:25
Abs Immat Gran (auto) 0.0 10^3/uL (0-0.05) 07/15/25 07:53
Absolute Neuts (auto) 0.0 10^3/uL (1.4-6.5) L* 07/15/25 07:53
Absolute Lymphs (auto) 0.3 10^3/uL (1.2-3.4) L 07/15/25 07:53
Absolute Monos (auto) 0.0 10^3/uL (0.1-0.6) L 07/15/25 07:53
Absolute Eos (auto) 0.0 10^3/uL (0-0.7) 07/15/25 07:53
Absolute Basos (auto) 0.0 10^3/uL (0-0.2) 07/15/25 07:53
Immature Gran % 0.0 % (0-0.5) 07/15/25 07:53
Neutrophils % 0.0 % (42.2-75.2) L 07/15/25 07:53
Lymphocytes % 100.0 % (20.5-51.1) H 07/15/25 07:53
Monocytes % 0.0 % (1.7-9.3) L 07/15/25 07:53
Eosinophils % 0.0 % (0-6) 07/15/25 07:53
Basophils % 0.0 % (0-2) 07/15/25 07:53
Creatinine 0.6 mg/dL (0.7-1.3) L 07/17/25 04:25
Vital Signs
Vital Signs
Temp Pulse Resp BP Pulse Ox
98.2 F 77 16 133/75 93
07/17/25 07:32 07/17/25 07:32 07/17/25 07:32 07/17/25 07:32 07/17/25 09:00
[2025-07-17 11:24] VITALS: BP 119/62
[2025-07-17] MEDS: ZOFRAN ODT (ORALLY DISINTEGRATING) 8 MG PO (11:48)
--- NOTE | 2025-07-17 11:59 | PTCARENOTE ---
Addendum entered by Lolis Garcia RN 07/17/25 12:21:
1 Unit PRBC ordered in am. Due to delay in bloodwork and getting unit ready, unit not administered prior to transfer. aware. RN @[facility] aware as well.
Original Note:
Report called to MIKE Magdaleno @[facility]. Family updated on plan. Awaiting EMS transfer at this time.
--- NOTE | 2025-07-17 12:24 | W.DCSUMMARY ---
Discharge Summary
Discharge Data
Date of Admission: 07/11/25
Date of Discharge: 07/17/25
-
Pending Results: No
Hospital Course
Primary diagnoses:
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
Neutropenia without fever
Left sided parotitis
Secondary diagnoses:
Asthma
Benign prostatic hypertrophy
Consults:
Cardiology
Imaging:
CXR 07/11: Diffuse bilateral interstitial and airspace opacities may reflect pulmonary interstitial edema and/or pneumonitis/pneumonia.
CT brain:
1. No CT evidence for acute intracranial hemorrhage or transcortical infarct.
2. Minimal periventricular white matter leukoaraiosis.
3. Mild ethmoid air cell mucosal disease.
Abd Xray:
1. No radiographic evidence for bowel obstruction or pneumoperitoneum.
2. Moderate amount of fecal material throughout the colon and rectum.
3. Severe interstitial disease in the lower lobes of both lungs. Diagnostic possibilities are (1) acute infection, (2) a severe inflammatory interstitial pneumonitis, (3) less likely cardiogenic pulmonary edema, or (4) less likely lymphangitic
carcinomatosis.
Echo:
1. Ejection fraction is 56% by volumetric assessment.
2. Normal left ventricular size, wall thickness and systolic function. No regional wall motion abnormalities are seen.
3. Mildly dilated aortic root measuring 3.8 cm in ascending aorta.
69-year-old male who presented with chief complaint of syncope as outlined in the H&P done on admission. Hospital course by problem list:
Syncopal episodes: The patient received IV fluids and was seen by cardiology. EKG (read by me): sinus bradycardia, nonspecific T-wave abnormalities. Echo above. The patient's syncope was likely vasovagal in etiology (prodrome of abdominal pain and
nausea followed by sinus slowing, sinus pause, then recovery).
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 The patient received 3U pRBCs and 4U plts while hospitalized.
Left-sided parotitis: The patient was started on augmentin on 07/16 with clinical improvement.
Diffuse bilateral interstitial/airspace opacities: The etiology remains unclear. The patient had no evidence of infection, was not short of breath or hypoxemic, and lungs were clear to auscultation bilaterally. proBNP 135. He had been previously
treated with a course of broad-spectrum antibiotics during a febrile episode. He was continued on Levaquin and posaconazole for prophylaxis.
Discharge Plan
-
Patient Disposition: Acute Care Hospital
Discharge Orders:
Discharge Patient (As Directed); Ordered 07/15/25
Ordered By: Oswaldo Vernon
Discharge Date and Time
Print Language: ICELANDIC
== END 2025-07-17 12:30 | disposition short-term general hospital (02) | DRG 809 ==
LOC: 3 WEST ACU 23:44
PROVIDERS: General Practice; Nurse Practitioner; Student in an Organized Health Care Education/Training Program; ADMITTING PHYSICIAN Hospitalist; ATTENDING PHYSICIAN Internal Medicine; CONSULT PHYSICIAN Internal Medicine Cardiovascular Disease; EMERGENCY PHYSICIAN Emergency Medicine; FAMILY PHYSICIAN Family Medicine; OTHER PHYSICIAN Internal Medicine Hematology & Oncology
PROC: 30233N1 Transfusion of Nonautologous Red Blood Cells into Peripheral Vein, Percutaneous Approach (ICD-10-PCS; 2025-07-14)
PROC: 30233R1 Transfusion of Nonautologous Platelets into Peripheral Vein, Percutaneous Approach (ICD-10-PCS; 2025-07-15)
DX: D61.818 Other pancytopenia (principal); C92.00 Acute myeloblastic leukemia, not having achieved remission; J45.909 Unspecified asthma, uncomplicated; N40.0 Benign prostatic hyperplasia without lower urinary tract symptoms; R00.1 Bradycardia, unspecified; R55 Syncope and collapse; K11.20 Sialoadenitis, unspecified; R91.8 Other nonspecific abnormal finding of lung field
CPT/HCPCS: 70450; 71045; 74018; 80048; 80053; 82962; 83880; 85025; 85027; 86850; 86900; 86901; 86920; 86922; 93005; 93306; 96361; 96374; 99285; J2997; P9058; P9073